=== PATIENT | female | born 1955 | race Caucasian/White ===

== ENCOUNTER → 2018-01-06 | Outpatient (CLI) | payer OTHER ==
[~2018-01-06] MED LIST: ASA81 MG PO; CALCIUM600 M1 PO; Z.0.ALTACE5 MG PO; Z.0.ESIDRIX25 MG PO; Z.0.GLIPIZIDE5 MG PO; Z.0.LOSARTAN POTASS5 PO; Z.0.LOVASTATIN10 MG PO; Z.0.MOBIC15 MG PO; [UNRECOGNIZED DRUG - OTHER] PO
--- NOTE | 2018-01-06 14:24 | Diagnostic Imaging Report ---
SMALL BOWEL SERIES NEWS LIBRARIAN(S): Laura Herr MD Comparison: None. Procedure: Small bowel follow through exam was performed using oral barium. Preliminary image was obtained before administration of contrast and serial overhead images were obtained after administration of oral barium. Fluoroscopy was performed and spot images were obtained. DISCUSSION: ENGINEERING ASSISTANT: The bowel gas pattern is non-obstructive. STOMACH: Unremarkable mucosal pattern. SMALL BOWEL: Bulb and sweep are normal. Duodenal-jejunal junction is in the normal expected position. Small bowel loops are normal in caliber and distribution. There is no evidence of fistula, mucosal changes, stricture or dilation. The transit time was within normal limits. COLON: Partially visualized proximal and transverse colon appear unremarkable. Fluoroscopy Time: 1.4 minutes; 92 mGy dose IMPRESSION: Unremarkable fluoroscopic small bowel series. Signed by: Dr. Laura Herr MD on 01/06/2018 2:21 PM
== END ==
LOC: DX 07:42
PROVIDERS: ATTEND Internal Medicine Gastroenterology
DX: R10.9 Unspecified abdominal pain (principal); K22.9 Disease of esophagus, unspecified
CPT/HCPCS: 74250

== ENCOUNTER 2019-08-21 12:51 | Inpatient (IN) | payer OTHER ==
[~2019-08-21] VITALS: Ht 172.7 cm; Wt 111.4 kg
--- OUTSIDE RECORDS SUMMARY | 2019-08-21 13:00 | XMS REPORT | Continuity of Care Document ---
Author Author [facility] Organization [facility] Address [address] [place] [address] Phone Unavailable Care Team Providers Care [employer] Supervisor Name Role Phone ELLE DEL VALLEDonta Eucedachristi Unavailable Payers Payer Name Policy Type Policy Number Effective Date Expiration Date S ource Problems This patient has no known problems. Allergies, Adverse Reactions, Alerts Allergy Name Allergy Type Status Severity Reaction(s) Onset Date Inacti ve Date Treating Clinician Comments Source morphine DA Active SV 2017-12-28 00:00:00 [facility] codeine DA Active SV 2017-12-28 00:00:00 [facility] penicillin G DA Active U 2017-12-28 00:00:00 [facility] Medications This patient has no known medications. Procedures This patient has no known procedures. Results Test Description Test Time Test Comments Results Result Comments Source COLON BIOPSY 2019-03-09 08:18:00 RUN DATE: 03/09/19 [facility] PAGE 1 RUN TIME: 817 Specimen Inquiry RUN USER: INTERFACE PATIENT: RUSSEL GUERRA LOC: NII U #: [id number] AGE/SX: 63/F ROOM: RE03/06/19[facility] DR: Ramon Del Valle MD : 59 BED: DIS: STATUS: [facility] TLOC: SPEC #: [id number] RECD: 03/06/19 STATUS: EMILY REQ #: [id number] KELLY: 03/06/19 [facility] DR: Ramon Del Valle MD ENTERED: 03/06/19 SP TYPE: COLONBX OTHR DR: Mega York DO ORDERED: GROSS COPIES TO: Ramon Del Valle MD [address] [place], [place] [id number] Mega York DO [address] [place] [address] P ROCEDURES: GROSS (03/08/19-1210) TISSUES: 1. CECUM, NOS - POLYP HS 2. ASCENDING COLON - POLYP BX CLINICAL HISTORY COLLECTION DATE: 03/06/2019 RECTAL BLEEDING POST-OP DIAGNOSIS: COLON POLYPS, DIVERTICULOSIS, INTERNAL HEMORRHOIDS FINAL DIAGNOSIS Cecum, polyp, snare polypectomy: HYPERPLASTIC POLYP NEGATIVE FOR MALIGNANCY Ascending colon, polyp, biopsy: REACTIVE LYMPHOID AGGREGATE, COLONIC MUCOSA NEGATIVE FOR MALIGNANCY DMW/sm D [id number] CONTINUED ON NEXT PAGE RUN DATE: 03/09/19 [facility] PAGE 2 RUN TIME: 817 Specimen Inquiry RUN USER: INTERFACE SPEC #: [id number] PATIENT: RUSSEL GUERRA #[id number] (Continued) MACROSCOPIC Specimen 1 is received in formalin, labeled with the patient's name, identified as " Cecum polyp hot snare ", and consists of pickering biopsy tissue measuring up to 0.3 cm in aggregate. Specimen 2 is received in formalin, labeled with the patient's name, identified as " Ascending colon polyp ", and consists of pickering biopsy tissue measuring up to 0.3 cm in aggregate. GROSS PERFORMED AT [facility] [address] [place] [address] [phone] MICROSCOPIC All of t he stains, including any controls performed, stain appropriately. MICROSCOPIC PERFORMED AT [facility] [address] [place] [address] [phone])[phone] PERFORMING SITE Diagnosis performed at: [facility], [place] [address] [place] [address] 56 Signed SIGNATURE ON FILE Doreen Rodriguez MD 03/09/19 0818 --------- --- END OF REPORT GLUBED 2019-03-06 05:58:00 Test Item GLUBED (test code = GLUBED) 174 mg/dL 74-106 H Performed by certified automatic winder operator at [facility] BASIC METABOLIC [id number] 12:35:00* Test Item Value Reference Range Interpretation Comments SODIUM (test code = NA) 141 mmol/L 136-145 N POTASSIUM (test code = K) 4.4 mmol/L 3.5-5.1 N CHLORIDE (test code = CL) 105.0 mmol/L 98-107 N CARBON DIOXIDE (test code = CO2) 27.0 mmol/L 21-32 N ANION GAP (test code = GAP) 13.4 10-20 N GLUCOSE (test code = GLU) 204 mg/dL 74-106 H BLOOD UREA NITROGEN (test code = BUN) 18 mg/dL 7-18 N GLOMERULAR FILTRATION RATE (test code = GFR) 56 mL/min >=60 Estimated GFR by using Modified MDRD formula.Chronic kidney disease is defined as either kidney damageor GFR <60 mL/min/1.73 m2 for >3 months. CREATININE (test code = CREAT) 1.00 mg/dL 0.55-1.02 N Note change in reference range due to change in reagent. BUN/CREATININE RATIO (test code = BUN/CREA) 17.5 10-20 N CALCIUM (test code = CA) 9.8 mg/dL 8.5-10.1 N BASIC METABOLIC [id number] 12:19:00* Test Item Value Reference Range Interpretation Comments SODIUM (test code = NA) 141 mmol/L 136-145 N POTASSIUM (test code = K) 4.4 mmol/L 3.5-5.1 N CHLORIDE (test code = CL) 105.0 mmol/L 98-107 N CARBON DIOXIDE (test code = CO2) mmol/L 21-32 ANION GAP (test code = GAP) 10-20 GLUCOSE (test code = GLU) mg/dL 74-106 BLOOD UREA NITROGEN (test code = BUN) mg/dL 7-18 GLOMERULAR FILTRATION RATE (test code = GFR) mL/min >=60 CREATININE (test code = CREAT) mg/dL 0.55-1.02 BUN/CREATININE RATIO (test code = BUN/CREA) 10-20 CALCIUM (test code = CA) mg/dL 8.5-10.1 - XR FACIAL BONES 3 + [id number] 12:19:00 FAX: Mega Horne DO [phone] [place]: O St: REG Name: RUSSEL RAWLS [facility] : 03/27/18 60 Age/S: 63/F [address] [facility] Unit #: [id number] Loc: [place] [address] Phys: Mega York DO Acct: [id number] Dis Date: Status: REG CLI PHONE #: [phone] Exam Date: 10/27/2018 1121 FAX #: [phone] Reason: S00.83XD EXAMS: CPT CODE: [id number] XR FACIAL BONES 3 + V 72870 HISTORY: S00.83XD TE CHNIQUE: 3 views of the facial bones. COMPARISON: None FINDINGS: Frontal, ethmoid, sphenoid, and maxillary sinuses are clear. Nasal septum is midline. Mastoid air cells are clear bilaterally. Regional osseous structures are intact. No contour abnormalities of the or bital waterman. Incidental note is made of a massive external o ccipital protuberance. IMPRESSION: No radiographically evident abnormality of the facial bones. CT scan is mor e sensitive for detection of pathology. Incidental note is made of massi ve external occipital protuberance. at 1219 Reported and signed by: Anat Riley MD CC: Mega York Technologist: Ananya Jimenez(R) Trnscrd Date/Time/By: 10/27/2018 (1055) : By: [email or web address] Orig Print D/T : S: 10/27/2018 (5675) PAGE 1 Sig christiano Report SMALL BOWEL [id number] 14:02:00 [place] [address] Patient Name: RUSSEL GUERRA MR #: [id number] : 1955 Age/Sex: 62/F Req #: [id number] [facility] Physician: Ordered by: RAMON DEL VALLE MD Report #: [id number] Location: DX Room/Bed: Procedure: [id number] DX /SMALL BOWEL SERIES Exam Date: Exam Time: REPORT STATUS: Signed SMALL BOWEL SERIES UX LEAD(S): Victorino Odonnell MD Comparison: None. Procedure: all bowel follow through exam was performed using oral barium. Preliminary im age was obtained before administration of contrast and serial overhead images were obtained after administration of oral barium. Fluoroscopy was performed and spot images were obtained. DISCUSSION: TECHNICAL TRAINING SPECIALIST: The bowel gas patter n is non-obstructive. STOMACH: Unremarkable mucosal pattern. SMALL BOWEL: Bulb and sweep are normal. Duodenal-jejunal junction is in the nor mal expected position. Small bowel loops are normal in caliber and distribu tion. There is no evidence of fistula, mucosal changes, stricture or dilatio n. The transit time was within normal limits. COLON: Partially visualiz ed proximal and transverse colon appear unremarkable. Fluoroscopy Time: 1. 4 minutes; 92 mGy dose IMPRESSION: Unremarkable fluoroscopic small bowel series. Signed by: Dr. Victorino Odonnell MD on 01/06/2018 2:21 PM Dic tated By: VICTORINO ODONNELL MD Transcribed By: SARKIS on 01/06/181420 COPY TO: RAMON DEL VALLE MD [id number] 16:43:00 RUN DATE: 01/04/18 [facility] PAGE 1 RUN TIME: 1643 Specimen Inqui ry RUN USER: INTERFACE PATIENT: RUSSEL GUERRA ACCT #: [id number] LOC: V.DSU U #: [id number] AGE/SX: 62/F ROOM: RE01/03/18REG DR: Ramon Del Valle MD : 59 BED: DIS: STATUS: [facility] TLOC: SPEC #: [id number] RECD: 01/03/18 STATUS: EMILY BEDOLLA #: [id number] KELLY: 01/03/18 DR: Ramon Del Valle MD ENTERED: 01/03/18 SP TYPE: STOMACH OTHR DR: Mega Corrigan od, DO ORDERED: GROSS COPIES TO: Ramon Del Valle MD [address] [place] [address] Mega York DO [address] [place] [address] PROCEDURES: GROSS (01/04/181135) TISSUES: 1. ANTRAL BIOPSY - H-PYLORI 2. CECUM, NOS - NATALY YP 3. ASCENDING COLON - POLYP 4. DESCENDING COLON - POLYP 5. SIGMOID - POLYP 6. RECTUM, NOS - POLYP CLINICAL HISTORY COLLECTION DATE: 01/03/2018 NAUSEA; WEIGHT LOSS; COLON CANCER SCREENING POST-OP DIAGNOSIS: ESOPHAGITIS; GASTRITIS; COLON POLYPS; INTERNAL HEMORRHOIDS FINAL DIAGNOSIS Gastric antrum, cold biopsy: MILD REACTIVE GAS TROPATHY FRAGMENTS OF GASTRIC MUCOSA WITH NO SIGNIFICANT PATHOLOGIC ALTE RATION NEGATIVE FOR INTESTINAL METAPLASIA NEGATIVE FOR HELICOBACTE R ORGANISMS NEGATIVE FOR MALIGNANCY Cecal polyp, hot snare, biopsy: SESSILE SERRATED ADENOMA NEGATIVE FOR MALIGNANCY Ascending colon polyp, hot biopsy: CONTINUED ON NEXT PAG E RUN DATE: 01/04/18 [facility] PAGE 2 RUN TIME: 1643 Specimen Inquiry RUN USER: INTERFACE SPEC #: [id number] PATIENT: RUSSEL GUERRA #[id number] (Continued) FINAL DIAG NOSIS (Continued) COLONIC MUCOSA WITH SUBTLE HYPERPLASTIC EDWARD GE OF SURFACE EPITHELIUM, MILD CHRONIC INFLAMMATION AND LYMPHOID AGGREG ATE NO ADENOMATOUS CHANGE PRESENT NEGATIVE FOR MALIGNANCY De scending colon polyp, hot biopsy: COLONIC MUCOSA WITH LYMPHOID AGGREGATE AND SUBTLE HYPERPLASTIC CHANGE OF SURFACE EPITHELIUM NEGATIVE FO R MALIGNANCY Sigmoid colon polyp, hot snare biopsy: HYPERPLASTI C POLYP NEGATIVE FOR MALIGNANCY Rectum polyp, hot biopsy: CO MPATIBLE WITH ARTIFACTUALLY DISTORTED HYPERPLASTIC POLYP NEGATIVE FOR MAL IGNANCY RRB/sm D [phone], 12837 MACROSCOPIC Specimen (1) is received in formalin, labeled with the patient's name, identified as " antrum", and consists of pink biopsy tissue measuring 0.35 cm in aggregate, s ubmitted as (1) for H E and giemsa stains. Specimen (2) is received in for tess, labeled with the patient's name, identified as "cecum polyp hot snare", and consists of pink-pickering biopsy tissue measuring 0.35 cm. The base is inked blue. THe tissue is bisected and submitted as (2). Specimen (3) is rece ived in formalin, labeled with the patient's name, identified as "ascending co wen polyp hot bx", and consists of pink-pickering biopsy tissue measuring 0.2 cm, moreno bmitted as (3). Specimen (4) is received in formalin, labeled with the pat ient's name, identified as "descending colon polyp hot bx", and consists of pi nk biopsy tissue measuring 0.2cm in aggregate, submitted as (4). Specime n (5) is received in formalin, labeled with the patient's name, identified as "sigmoid colon polyp hot snare", and consists of red-pink biopsy tissue measur ing 0.2 cm, submitted as (5). Specimen (6) is received in formalin, labele d with the patient's name, identified as "rectal polyp hot bx", and consists o f pink biopsy tissue measuring 0.2 cm, submitted as (6). CONTINUED ON NEXT PAGE RUN DATE: 01/04/18 [facility] PAGE 3 RUN TIME: 1643 Specimen Inquiry RUN USER: INTERFACE SPEC #: [id number] PATIENT: RUSSEL GUERRA #[id number] (Continu ed) MACROSCOPIC (Continued) GROSS PERFO RMED AT [facility] [address] [facility], [place] [address] (p)[phone] MICROSCOPIC MICROSCOPIC PERFORME D AT [facility] All of the stains, including any controls performe d, stain appropriately. [facility] [address] [facility], [place] [address] (p)[phone] PERFORMING SITE Diagnosis performed at: [facility], [address], [place] [address] Signed SIGNATURE ON FILE Edward Romero 01/04/18 1643 END OF REPORT
[2019-08-21] MEDS ORDERED: SODIUM CHLORIDE 0.9% 1000ML 1,000 ML IV STA (13:09)
--- NOTE | 2019-08-21 13:33 | NUR ---
PT GIVEN DRIVERS LICENSE, INSUR CARD AND RETURN MED LIST.
[2019-08-21] MEDS ORDERED: CEFTRIAXONE SOD 2 GM VIAL ONE (13:46)
[2019-08-21] MEDS ORDERED: AZITHROMYCIN 500MG/NS 250 ML 250 ML ONE (13:46)
[2019-08-21] MEDS ORDERED: ONDANSETRON HCL INJ 2MG/ML 2ML 2 MG/ML VIAL IV STA (13:47)
[2019-08-21] MEDS: CEFTRIAXONE SOD 1 GM/NS 50 ML 50 ML IV SCH (13:58)
[2019-08-21] MEDS: AZITHROMYCIN 500MG/NS 250 ML 250 ML IV SCH (13:58)
[2019-08-21 14:07] LABS: HEMATOCRIT 36.7 % (34.2-44.1); HEMOGLOBIN 12.1 g/dL (12.0-16.0); LYMPHOCYTES # (AUTO) 0.8 (1.0-3.2); LYMPHOCYTES % 18.4 % (18.0-39.1); MEAN CORPUSCULAR HEMOGLOBIN 27.6 pg (28-32); MEAN CORPUSCULAR VOLUME 83.8 fL (81-99); MONOCYTES # (AUTO) 0.4 (0.2-0.8); NEUTROPHILS # (AUTO) 2.9 (2.1-6.9); NEUTROPHILS % 71.1 % (38.7-80.0); PLATELET COUNT 188 x10e3/uL (140-360); RED BLOOD COUNT 4.38 x10e6/uL (3.6-5.1); RED CELL DISTRIBUTION WIDTH 13.1 % (11.7-14.4)
--- NOTE | 2019-08-21 14:09 | NUR ---
ICE WATER, WET RAG FOR HEAD, GIVEN PER REQUEST
[2019-08-21 14:22] LABS: INR 0.8; PROTHROMBIN TIME 11.5 seconds (11.9-14.5)
[2019-08-21 14:30] LABS: ALBUMIN 3.1 g/dL (3.5-5.0); ALBUMIN/GLOBULIN RATIO 0.8 (0.8-2.0); ANION GAP 17.9 mmol/L (8-16); MAGNESIUM 1.9 MG/DL (1.3-2.1); POTASSIUM 3.9 mmol/L (3.5-5.1)
[2019-08-21] MEDS ORDERED: HYDROCHLOROTHIA25 MG PO (14:33)
[2019-08-21] MEDS ORDERED: BENICAR20 MG PO (14:33)
[2019-08-21] MEDS ORDERED: ONGLYZA5 MG PO (14:33)
[2019-08-21] MEDS ORDERED: PROTONIX20 MG PO (14:33)
[2019-08-21] MEDS ORDERED: LOVASTATIN20 MG PO (14:33)
[2019-08-21] MEDS ORDERED: VICTOZA 2-0.6 MG/0.1 IM (14:33)
[2019-08-21] MEDS ORDERED: ADVAIR 100-501 EACH (14:33)
[2019-08-21] MEDS ORDERED: RAMIPRIL5 MG PO (14:33)
--- NOTE | 2019-08-21 14:38 | NUR ---
CALLED [facility] FOR ETA OF XRAY TO BE DONE. STATES ON THEIR WAY.
[2019-08-21 14:39] LABS: CREATINE KINASE MB 1.8 ng/mL (0-5.0)
[2019-08-21] MEDS ORDERED: SODIUM CHLORIDE 0.9% 1000ML 1,000 ML IV SCH (15:00)
[2019-08-21] MEDS ORDERED: DEXTROSE 50% SYRINGE 50 ML IV PRN (15:00)
[2019-08-21] MEDS ORDERED: MIDAZOLAM HCL 2 MG/2 ML VIAL ONE (15:11)
[2019-08-21] MEDS ORDERED: ETOMIDATE 2 MG/ML 10 ML INJ IV ONE (15:11)
[2019-08-21] MEDS ORDERED: SUCCINYLCHOLINE CHLORIDE 20 MG/ML 10ML VIAL ONE (15:11)
--- NOTE | 2019-08-21 15:13 | Diagnostic Imaging Report ---
Chest, 1 view, 08/21/2019. History: Covid exposure. Comparison: None available. Findings: The cardiomediastinal silhouette and pulmonary vasculature are within normal limits for a portable exam. Ill-defined patchy opacities are present at the lung bases laterally. There is no evidence of pleural effusion. There are no acute osseous or soft tissue abnormalities. Impression: Patchy bibasilar opacities may present atelectasis or atypical/viral pneumonia. Signed by: Duc Bañuelos on 08/21/2019 3:09 PM
--- NOTE | 2019-08-21 15:30 | Emergency Department Note ---
History of Present Illnes History of Present Illness Chief Complaint: COVID PUI History of Present Illness This is a 64 year old female CLIENTS IS IN ICU FOR COVID INFECTION, CLIENT REPORTS FEELING WEAK FOR THE LAST WEEK, WELL COUGH. ALSO REPORTS FEELING SHORT OF BREATH. Historian: Patient Arrival Mode: Car Management Scientist Required: No Onset (how long ago): day(s) (6) Location: LUNGS Quality: COUGH, SOB Radiation: Reports non-radiation Severity: moderate Onset quality: gradual Timing of current episode: intermittent Progression: worsening Chronicity: new Context: Reports recent illness Relieving factors: none Exacerbating factors: none Associated symptoms: Reports cough, Reports fever/chills, Reports shortness of breath Treatments prior to arrival: none Past Medical/Family History Physician Review I have reviewed the patient's past medical and family history. Any updates have been documented here. Past Medical History Recent Fever: Yes Clinical Suspicion of Infectio: Yes New/Unexplained Change in Ment: No Past Medical History: Hypertension, Diabetes, Hyperlipedemia Social History Smoking Cessation: Never Smoker Counseling Performed: No Alcohol Use: None Any Illegal Drug Use: No TB Exposure/Symptoms: No Physically hurt or threatened: No Family History Family history of heart diseas: No Other Last Tetanus: UNKNOWN Any Pre-Existing Lines (PICC,: No Review of Systems Review of Systems Constitutional: Reports fever, Reports malaise, Reports weakness EENTM: Reports no symptoms Cardiovascular: Reports no symptoms Respiratory: Reports chest congestion, Reports cough, Reports dyspnea, Reports dyspnea on exertion Gastrointestinal: Reports no symptoms Genitourinary: Reports no symptoms Musculoskeletal: Reports no symptoms Integumentary: Reports no symptoms Neurological: Reports no symptoms Psychological: Reports no symptoms Endocrine: Reports no symptoms Hematological/Lymphatic: Reports no symptoms Review of other systems All other systems reviewed and negative. Physical Exam Related Data Allergies: Coded Allergies: Codeine (Verified Allergy, 06/12/11) Penicillins (Verified Allergy, 06/12/11) morphine (Verified Allergy, 06/12/11) Triage Vital Signs Vital Signs Date Time Temp Pulse Resp B/P (MAP) Pulse Ox O2 Delivery O2 Flow Rate FiO2 08/21/19 12:52 99.6 86 18 145/81 94 Physical Exam CONSTITUTIONAL Constitutional: Reports well-developed, Reports well-nourished HENT HENT: Reports normocephalic, Reports atraumatic, Reports oropharynx clear/moist, Reports nose normal HENT L/R: Reports left ext ear normal, Reports right ext ear normal EYES Eyes: Reports PERRL, Reports conjunctivae normal NECK Neck: Reports ROM normal PULMONARY Pulmonary: Reports other (DECR BS'S THROUGHOUT, SCATTERED RHONCHI) CARDIOVASCULAR Cardiovascular: Reports regular rhythm, Reports heart sounds normal, Reports capillary refill normal, Reports normal rate GASTROINTESTINAL Abdominal: Reports soft, Reports nontender, Reports bowel sounds normal GENITOURINARY Genitourinary: Reports exam deferred SKIN Skin: Reports warm, Reports dry MUSCULOSKELETAL Musculoskeletal: Reports ROM normal NEUROLOGICAL Neurological: Reports alert, Reports oriented x 3, Reports no gross motor or sensory deficits PSYCHOLOGICAL Psychological: Reports mood/affect normal, Reports judgement normal Results Laboratory Result Diagram: 08/21/19 1300 08/21/19 1300 Laboratory Laboratory Tests Test 08/21/19 13:00 White Blood Count 4.12 x10e3/uL (4.8-10.8) Red Blood Count 4.38 x10e6/uL (3.6-5.1) Hemoglobin 12.1 g/dL (12.0-16.0) Hematocrit 36.7 % (34.2-44.1) Mean Corpuscular Volume 83.8 fL (81-99) Mean Corpuscular Hemoglobin 27.6 pg (28-32) Mean Corpuscular Hemoglobin Concent 33.0 g/dL (31-35) Red Cell Distribution Width 13.1 % (11.7-14.4) Platelet Count 188 x10e3/uL (140-360) Neutrophils (%) (Auto) 71.1 % (38.7-80.0) Lymphocytes (%) (Auto) 18.4 % (18.0-39.1) Monocytes (%) (Auto) 10.0 % (4.4-11.3) Eosinophils (%) (Auto) 0.0 % (0.0-6.0) Basophils (%) (Auto) 0.0 % (0.0-1.0) Neutrophils # (Auto) 2.9 (2.1-6.9) Lymphocytes # (Auto) 0.8 (1.0-3.2) Monocytes # (Auto) 0.4 (0.2-0.8) Eosinophils # (Auto) 0.0 (0.0-0.4) Basophils # (Auto) 0.0 (0.0-0.1) Absolute Immature Granulocyte (auto 0.02 x10e3/uL (0-0.1) Prothrombin Time 11.5 seconds (11.9-14.5) Prothromb Time International Ratio 0.80 Activated Partial Thromboplast Time 34.0 seconds (23.8-35.5) Sodium Level 133 mmol/L (136-145) Potassium Level 3.9 mmol/L (3.5-5.1) Chloride Level 97 mmol/L (98-107) Carbon Dioxide Level 22 mmol/L (22-29) Anion Gap 17.9 mmol/L (8-16) Blood Urea Nitrogen 19 mg/dL (7-26) Creatinine 1.00 mg/dL (0.57-1.11) Estimat Glomerular Filtration Rate 56 ML/MIN (60-) BUN/Creatinine Ratio 19 (6-25) Glucose Level 313 mg/dL (74-118) Calcium Level 9.0 mg/dL (8.4-10.2) Magnesium Level 1.9 MG/DL (1.3-2.1) Total Bilirubin 0.3 mg/dL (0.2-1.2) Aspartate Amino Transf (AST/SGOT) 60 IU/L (5-34) Alanine Aminotransferase (ALT/SGPT) 58 IU/L (0-55) Alkaline Phosphatase 79 IU/L (40-150) Creatine Kinase 138 IU/L (29-168) Creatine Kinase MB 1.80 ng/mL (0-5.0) Troponin I 0.036 ng/mL (0-0.300) B-Type Natriuretic Peptide 20.7 pg/mL (0-100) Total Protein 7.1 g/dL (6.5-8.1) Albumin 3.1 g/dL (3.5-5.0) Globulin 4.0 g/dL (2.3-3.5) Albumin/Globulin Ratio 0.8 (0.8-2.0) Lab results reviewed: Yes Imaging Imaging results reviewed: Yes Impressions Chest, 1 view, 08/21/2019. History: Covid exposure. Comparison: None available. Findings: The cardiomediastinal silhouette and pulmonary vasculature are within normal limits for a portable exam. Ill-defined patchy opacities are present at the lung bases laterally. There is no evidence of pleural effusion. There are no acute osseous or soft tissue abnormalities. Impression: Patchy bibasilar opacities may present atelectasis or atypical/viral pneumonia. Signed by: Duc Bañuelos on 08/21/2019 3:09 PM Assessment & Plan Medical Decision Making MDM COUGH, SUB F/C, SOB, ACHY ALL OVER, HERE IN ICU FOR COVID19 - CHECK CBC, CHEM, PANCX'S, UA, CXR, COVID SWAB, CK/TROP, ECG - R/O COMM ACQUIRED PNEUMONIA, COVID19, BRONCHITIS Reassessment Reassessment ADMIT TO COVID UNIT - I SPOKE WITH ANGEL WAGONER L HAMER Assessment & Plan Final Impression: (1) Pneumonia (2) COVID-19 Depart Disposition: ADMITTED Last Vital Signs Date Time Temp Pulse Resp B/P (MAP) Pulse Ox O2 Delivery O2 Flow Rate FiO2 08/21/19 14:09 86 16 131/67 98 08/21/19 13:31 99.1 Home Meds Reported Medications Fluticasone/Salmeterol (ADVAIR 100-50 DISKUS) 1 Each Disk.w.dev, 1 SPRAY NA DAILY 08/21/19 Pantoprazole Sodium (PROTONIX) 20 Mg Tablet.dr, 80 MG PO HS, #30 TAB 08/21/19 Hydrochlorothiazide (HYDROCHLOROTHIAZIDE) 25 Mg Tablet, 25 MG PO DAILY, #30 TAB 08/21/19 Lovastatin (LOVASTATIN) 20 Mg Tablet, 1 TAB PO DAILY 08/21/19 Ramipril (RAMIPRIL) 5 Mg Capsule, 5 MG PO DAILY, #30 TAB 08/21/19 Olmesartan Medoxomil (BENICAR) 20 Mg Tablet, 20 MG PO DAILY, #30 TAB 08/21/19 Liraglutide (VICTOZA 2-YUMIKO) 0.6 Mg/0.1 Ml Pen.injctr, 1.2 MG IM DAILY 08/21/19 Saxagliptin Hcl (ONGLYZA) 5 Mg Tablet, 1 TAB PO DAILY 08/21/19 Aspirin (Asa) 81 Mg Tab, 81 MG PO DAILY 06/12/11 Glipizide (Glipizide) 5 Mg Tablet, 2 MG PO BID 06/12/11 Metformin Hcl (Glucophage Xr) 750 Mg Tab.er.24h, 1000 MG PO BID 06/12/11 Discontinued Reported Medications Calcium Carbonate (CALCIUM) 600 Mg Tablet, 600 MG PO DAILY 06/12/11 Meloxicam (Mobic) 15 Mg Tablet, 15 MG PO DAILY 06/12/11 Hydrochlorothiazide (Esidrix) 25 Mg Tab, 25 MG PO DAILY 06/12/11 Lovastatin (Lovastatin) 10 Mg Tablet, 10 MG PO DAILY 06/12/11 Ramipril (Altace) 5 Mg Capsule, 5 MG PO DAILY 06/12/11 Losartan Potassium (Losartan Potassium) 50 Mg Tablet, 50 MG PO DAILY 06/12/11 Medications in the ED Sodium Chloride 1,000 ml @ 0 mls/hr Q0M STAT IV Last administered on 08/21/19at 13:58; Admin Dose 1,000 MLS/HR; Start 08/21/19 at 13:09; Stop 08/21/19 at 13:13; Status DC Ceftriaxone Sodium 50 ml @ 100 mls/hr Q24H IV Last administered on 08/21/19at 13:58; Admin Dose 100 MLS/HR; Start 08/21/19 at 13:45; Stop 08/28/19 at 13:44 Azithromycin 250 ml @ 200 mls/hr Q24H IV Last administered on 08/21/19at 13:58; Admin Dose 200 MLS/HR; Start 08/21/19 at 13:45; Stop 08/28/19 at 13:44 Ceftriaxone Sodium 2 gm STK-MED ONCE .ROUTE ; Start 08/21/19 at 13:46; Stop 08/21/19 at 13:41; Status DC Azithromycin 250 ml @ ud STK-MED ONCE .ROUTE ; Start 08/21/19 at 13:46; Stop 08/21/19 at 13:41; Status DC Ondansetron HCl 4 mg NOW STAT IV Last administered on 08/21/19at 13:58; Admin Dose 4 MG; Start 08/21/19 at 13:47; Stop 08/21/19 at 13:51; Status DC NATALEE FELDER MD Aug 21, 2019 15:30
--- OUTSIDE RECORDS SUMMARY | 2019-08-21 15:38 | XMS REPORT | Continuity of Care Document ---
Author Author [facility] Organization [facility] Address [address] [place] [address] Phone Unavailable Care Team Providers Care Piecer Up Name Role Phone Tavo FELDER Attphys Unavailable RAMON DEL VALLE Attphys Unavailable Ariella ONTIVEROS Admphys Unavailable Payers Payer Name Policy Type Policy Number Effective Date Expiration Date S ource Problems This patient has no known problems. Allergies, Adverse Reactions, Alerts Allergy Name Allergy Type Status Severity Reaction(s) Onset Date Inacti ve Date Treating Clinician Comments Source morphine DA Active SV 2017-12-28 00:00:00 [facility] codeine DA Active SV 2017-12-28 00:00:00 [facility] penicillin G DA Active U 2017-12-28 00:00:00 [facility] Medications This patient has no known medications. Procedures This patient has no known procedures. Results Test Description Test Time Test Comments Results Result Comments Source CHEST SINGLE (PORTABLE) 2019-08-21 15:06:00 [facility] [address] [address] Patient Name: RUSSEL GUERRA MR #: [id number] : 1955 Age/Sex: 64/F Req #: [id number] Adm Physician: Ordered by: NATALEE FELDER MD Report #: [id number] Location: ER Room/Bed: Procedure: [id number] DX/CHEST SINGLE (PORTABLE) Exam Date: 08/21/19 Exam Time: 1430 REPORT STATUS: Signed Chest, 1 view, 08/21/2019. History: Covid exposure. Comparison: None available. Findings: The cardiomediastinal silhouette and pulmonary vasculature are within normal limits for a portable exam. Ill-defined patchy opacities are present at the lung bases laterally. There is no evidence of pleural effusion. There are no acute osseous or soft tissue abnormalities. Impression: Patchy bibasilar opacities may present atelectasis or atypical/viral pneumonia. Signed by: Duc Bañuelos on 08/21/2019 3:09 PM Dictated By: DUC BAÑUELOS MD 1509 Transcribed By: SARKIS on 08/21/19 1503 COPY TO: NATALEE FELDER MD COLON BIOPSY 2019-03-09 08:18:00 RUN DATE: 03/09/19 [facility] PAGE 1 RUN TIME: 817 Specimen Inquiry RUN USER: INTERFACE PATIENT: OBDULIOJANNETTERUSSEL HEAVENLY LOC: NII Arcos #: [id number] AGE/SX: 63/F ROOM: RE03/06/19[facility] DR: Ramon Del Valle MD : 59 BED: DIS: STATUS: [facility] TLOC: SPEC #: [id number] RECD: 03/06/19 STATUS: EMILY GRAEME #: [id number] KELLY: 03/06/19 [facility] DR: Ramon Del Valle MD ENTERED: 03/06/19 SP TYPE: COLONBX OTHR DR: Mega York DO ORDERED: GROSS COPIES TO: Ramon Del Valle MD [address] [place], [place] [id number] Mega York DO [address] [place], [place] [id number] P ROCEDURES: GROSS (03/08/19-1210) TISSUES: 1. CECUM, NOS - POLYP HS 2. ASCENDING COLON - POLYP BX CLINICAL HISTORY COLLECTION DATE: 03/06/2019 RECTAL BLEEDING POST-OP DIAGNOSIS: COLON POLYPS, DIVERTICULOSIS, INTERNAL HEMORRHOIDS FINAL DIAGNOSIS Cecum, polyp, snare polypectomy: HYPERPLASTIC POLYP NEGATIVE FOR MALIGNANCY Ascending colon, polyp, biopsy: REACTIVE LYMPHOID AGGREGATE, COLONIC MUCOSA NEGATIVE FOR MALIGNANCY DMW/ D [id number] CONTINUED ON NEXT PAGE RUN DATE: 03/09/19 [facility] PAGE 2 RUN TIME: 817 Specimen Inquiry RUN USER: INTERFACE SPEC #: [id number] PATIENT: RUSSEL GUERRA #[id number] (Continued) MACROSCOPIC Specimen 1 is received in [...] 0.3 cm in aggregate. GROSS PERFORMED AT [facility] [address] [place] [address] (p)[phone] MICROSCOPIC All of t he stains, including any controls performed, stain appropriately. MICROSCOPIC PERFORMED AT [facility] [address] [place] [address] (p)[phone] PERFORMING SITE Diagnosis performed at: [facility], [address] [place] [address] Signed SIGNATURE ON FILE Doreen Rodriguez MD 03/09/19 0818 --------- --- END OF REPORT GLUBED 2019-03-06 05:58:00 Test Item GLUBED (test code = GLUBED) 174 mg/dL 74-106 H Performed by certified casting machine control board operator at [facility] BASIC METABOLIC [id number] 12:35:00* Test Item Value Reference Range Interpretation [...] CA) 9.8 mg/dL 8.5-10.1 N BASIC METABOLIC [id number] 12:19:00* Test Item Value Reference Range Interpretation [...] 8.5-10.1 - XR FACIAL BONES 3 + [id number] 12:19:00 FAX: Mega Horne DO [phone] [place]: O St: REG Name: RUSSEL RAWLS [facility] : 03/27/18 60 Age/S: 63/F [address] [facility] Unit #: [id number] Loc: [place] [address] Phys: Mega York DO Acct: [id number] Dis Date: Status: REG CLI PHONE #: [phone] Exam Date: 10/27/2018 1121 FAX #: [phone] Reason: S00.83XD EXAMS: CPT CODE: [id number] XR FACIAL BONES 3 + V 71010 HISTORY: S00.83XD TE CHNIQUE: 3 views of [...] York Technologist: Ananya Jimenez(R) Trnscrd Date/Time/By: 10/27/2018 (1918) : By: [email or web address] Orig Print D/T : S: 10/27/2018 (2149) PAGE 1 Sig christiano Report SMALL BOWEL [id number] 14:02:[address] [address] Patient Name: RUSSEL GUERRA MR #: [id number] : 1955 Age/Sex: 62/F Req #: [id number] Adm Physician: Ordered by: RAMON DEL VALLE MD Report #: [id number] Location: DX Room/Bed: Procedure: [id number] DX /SMALL BOWEL SERIES Exam Date: Exam Time: REPORT STATUS: Signed SMALL BOWEL SERIES TECHNICAL COORDINATOR(S): Victorino Odonnell MD Comparison: None. Procedure: Sm all bowel follow through exam was performed using oral barium. Preliminary im age was obtained before administration of contrast and serial overhead images were obtained after administration of oral barium. Fluoroscopy was performed and spot images were obtained. DISCUSSION: RN RECOVERY: The bowel gas patter n is non-obstructive. [...] PM Dic tated By: VICTORINO ODONNELL MD 142 1 Transcribed By: SARKIS on 01/06/18 1421 COPY TO: RAMON DEL VALLE MD [id number] 16:43:00 RUN DATE: 01/04/18 [facility] PAGE 1 RUN TIME: 1643 Specimen Inqui ry RUN USER: INTERFACE PATIENT: RUSSEL GUERRA ACCT #: [id number] LOC: V.DSU U #: [id number] AGE/SX: 62/F ROOM: RE01/03/18REG DR: Ramon Del Valle MD : [birth year] BED: DIS: STATUS: [facility] TLOC: SPEC #: [id number] RECD: 01/03/18 STATUS: EMILY BEDOLLA #: [id number] KELLY: 01/03/18- SUBM DR: Ramon Del Valle MD ENTERED: 01/03/18 SP TYPE: STOMACH OTHR DR: Mega Corrigan od, DO ORDERED: GROSS COPIES TO: Ramon Del Valle MD [address] [place] [address] Mega York DO [address] [place] [address] PROCEDURES: GROSS (01/04/181135) TISSUES: 1. ANTRAL BIOPSY [...] ON NEXT PAG E RUN DATE: 01/04/18 [facility] PAGE 2 RUN TIME: 1643 Specimen Inquiry RUN USER: INTERFACE SPEC #: :[id number] PATIENT: RUSSEL GUERRA #[id number] (Continued) FINAL DIAG NOSIS (Continued) COLONIC MUCOSA [...] POLYP NEGATIVE FOR MAL IGNANCY RRB/sm D ([phone], 40115 MACROSCOPIC Specimen (1) is received in formalin, [...] CONTINUED ON NEXT PAGE RUN DATE: 01/04/18 [facility] PAGE 3 RUN TIME: 1643 Specimen Inquiry RUN USER: INTERFACE SPEC #: [id number] PATIENT: RUSSEL GUERRA #[id number] (Continu ed) MACROSCOPIC (Continued) GROSS PERFO RMED AT [facility] [address] [place], [place] [address] (P)[phone] MICROSCOPIC MICROSCOPIC PERFORME D AT [facility] All of the stains, including any controls performe d, stain appropriately. [facility] [address] [facility] [place] [address] [phone])[phone] PERFORMING SITE Diagnosis performed at: [facility], [place] [address] [place] [address] Signed SIGNATURE ON FILE Edward Romero 01/04/18 1643 END OF REPORT
[2019-08-21] MEDS ORDERED: HYDROCODONE/APAP 7.5MG-325MG 1 EA TAB PO PRN (16:00)
[2019-08-21] MEDS ORDERED: TRAMADOL HCL 50 MG TAB PO PRN (16:00)
--- NOTE | 2019-08-21 16:28 | NUR ---
consult [id number]
[2019-08-21] MEDS ORDERED: GLIPIZIDE 5 MG TAB PO SCH (16:30)
[2019-08-21] MEDS ORDERED: ACETAMINOPHEN 325 MG TAB PO ONE (17:00)
[2019-08-21 18:29] LABS: CLARITY,URINE SL CLOUDY (CLEAR); COLOR,URINE YELLOW (YELLOW)
[2019-08-21 18:30] LABS: BILIRUBIN,URINE NEGATIVE (NEGATIVE); KETONES,URINE NEGATIVE (NEGATIVE); LEUKOCYTE ESTERASE ,URINE NEGATIVE (NEGATIVE); NITRITE,URINE NEGATIVE (NEGATIVE); PROTEIN,URINE DIPSTICK TRACE (NEGATIVE); URINE UROBILINOGEN 1 mg/dL (0.2 - 1)
[2019-08-21 18:32] LABS: AMORPHOUS SEDIMENT,URINE FEW (FEW); BACTERIA,URINE FEW /HPF
--- NOTE | 2019-08-21 18:44 | NUR ---
Received patient from ED. Orientated patient to room, call light at bedside. Denies any pain or concerns at this time.
--- NOTE | 2019-08-21 19:00 | NUR ---
Resumed care of patient. Patient awake and resting in bed, no s/s of distress at this time. Bed locked and in lowest position, side rails up x3, call light placed within reach. Patient instructed to call for assistance if needed, verbalized understanding. All safety measures in place. Will continue to monitor.
[2019-08-21 20:03] VITALS: BP 129/70
[2019-08-21] MEDS: INSULIN LISPRO 100 UNIT/1 ML 3ML VIAL SQ SCH (20:35)
[2019-08-21] MEDS: BENZONATATE 100 MG CAP PO PRN (20:35)
[2019-08-21] MEDS: PANTOPRAZOLE SOD 40 MG TABEC PO SCH (20:35)
--- NOTE | 2019-08-21 20:35 | NUR ---
Per ashvin Victor to DC telemetry and keep patient on continuous pulse ox.
[2019-08-21 20:44] LABS: CREATINE KINASE MB 1.6 ng/mL (0-5.0)
[2019-08-21 21:02] VITALS: BP 129/70
[2019-08-21 21:18] VITALS: BP 129/70
--- NOTE | 2019-08-21 21:45 | NUR ---
Per Dr. Toribio, will proceed with plasma transfusion. Orders received for type and screen.
--- NOTE | 2019-08-21 21:55 | Consultation ---
DATE OF CONSULTATION: Pulmonary Critical Care Consultation CHIEF COMPLAINT: Fever and cough with possible COVID-19 infection. HISTORY OF PRESENT ILLNESS: The patient is a 64-year-old woman. She reports fever and cough for the past 6-7 days. She also complains of headache and upper thoracic pain with coughing. She notes some shortness of breath. She denies nausea, vomiting, or diarrhea. PAST MEDICAL HISTORY: 1. Diabetes. 2. Hypertension. 3. No prior heart disease. 4. No prior COPD or asthma. PAST SURGICAL HISTORY: Status post hysterectomy. ALLERGIES: THE PATIENT IS ALLERGIC TO PENICILLIN AND MORPHINE. SOCIAL HISTORY: The patient is not a smoker or a drinker. Her is currently hospitalized with COVID-19 infection. FAMILY HISTORY: Noncontributory. REVIEW OF SYSTEMS: Fever, headache. No neck pain. No chest pain. The patient does have shortness of breath and cough. There is no abdominal pain. There is no nausea or vomiting. The patient has no leg edema. PHYSICAL EXAMINATION: VITAL SIGNS: The patient is afebrile. The blood pressure is 131/67, saturation is 98%, and the pulse is 86. HEENT: No facial swelling or erythema. CARDIAC: Reveals regular rate and rhythm with normal S1, S2. LUNGS: Auscultation of lungs reveals clear breath sounds bilaterally. There is no wheezing. ABDOMEN: Soft and nontender. There is no rebound or guarding. EXTREMITIES: No leg edema or calf tenderness. There is no cyanosis or clubbing. SKIN: No rashes. NEUROLOGICAL: No focal abnormalities. RADIOGRAPHIC DATA: Chest x-ray shows bilateral infiltrates. LABORATORY DATA: CBC is within normal limits. BUN to creatinine ratio is 19 to 1, and the sodium is 133. Albumin is 3.1. IMPRESSION: 1. Viral pneumonia. 2. COVID-19 infection. 3. Diabetes. 4. Hypertension. PLAN: 1. Oxygen. 2. IV fluids. 3. Antibiotics. 4. Monitor and control blood sugars. 5. Monitor blood pressure. MD MERLINE Arango/GARRY /[id number]
--- NOTE | 2019-08-21 22:30 | NUR ---
Type and screen drawn as ordered and sent to lab.
[2019-08-21 23:55] VITALS: BP 124/74
[2019-08-22] VITALS (7 sets, daily range): BP systolic 115–140; BP diastolic 66–76
[2019-08-22] MEDS ORDERED: GLIMEPIRIDE2 MG PO (00:20)
--- NOTE | 2019-08-22 00:20 | Consultation ---
DATE OF CONSULTATION: REASON FOR CONSULTATION: The patient has shortness of breath, fever, concerned about COVID-19. HISTORY OF PRESENT ILLNESS: This is a very pleasant 64-year-old white female, history of hypertension, hypercholesteremia, obesity. The patient has been sick for a couple of days with fever, sore throat, cough. Her was diagnosed with COVID-19 and has actually been admitted today to the hospital, but her has been sick for 7 days. The patient who is currently lying in bed in the emergency room, waiting on her test. She complaining of cough, but there is no shortness of breath, just cough and fever. PAST MEDICAL HISTORY: Significant for hypertension, diabetes. PAST SURGICAL HISTORY: She denies. ALLERGIES: NKA. SOCIAL HISTORY: There is no smoking, drug abuse, or alcohol abuse. FAMILY HISTORY: Otherwise unremarkable. REVIEW OF SYSTEMS: Besides what mentioned above, she denies any. MEDICATIONS: She is currently on Zithromax, Rocephin, Tessalon Perles, Ultram, Protonix, Benicar, aspirin, albuterol. LABORATORY DATA: White count 4.12, hemoglobin 4.38, hemoglobin of 12. Her sodium 133, potassium 3.9, creatinine 1.0, glucose 313. BNP is 20. Her COVID-19 is still pending. Her PT was 11.5 with an INR 0.8. She had a chest x-ray, which showed patchy bibasilar opacities. PHYSICAL EXAMINATION: GENERAL: Currently alert, oriented, does not seem to be in acute distress. VITAL SIGNS: Stable. Currently afebrile. HEENT: She is not icteric. NECK: Supple. CHEST: A few crackles bilateral. COR: S1, S2. No S3, S4, or murmurs. ABDOMEN: Soft. Bowel sounds present. No tenderness. EXTREMITIES: No edema. SKIN: No rash. IMPRESSION: 1. Atypical pneumonia. 2. Diabetes mellitus. 3. History of hypertension. 4. History of obesity. RECOMMENDATIONS: Agree with Rocephin and azithromycin. We are checking for COVID-19, results still pending. If that came back positive, I would recommend to add Lovenox, zinc and vitamin C. In the meantime, continue above treatment. She does not seem to be hypoxemic. We will also discuss the possibility of plasma and she said she is willing to take it if it is positive. We will follow with you. We will keep her on droplet isolation until we get a definitive diagnosis. MD BAYRON Hitchcock/GARRY /[id number]
[2019-08-22 01:39] LABS: CREATINE KINASE MB 1.7 ng/mL (0-5.0)
--- NOTE | 2019-08-22 01:40 | NUR ---
Confirmed with patient that Dr. Toribio already explained plan for convalescent plasma transfusion. Obtained informed consent.
--- NOTE | 2019-08-22 04:00 | NUR ---
Patient c/o SOB while lying in bed. O2 stats 90% on 2L O2 NC. Increased to 3L, O2 94%. Assisted patient to restroom. O2 level down to 87% on RA. Provided O2 extension so that patient can wear NC to restroom. Patient currently resting in bed, O2 95% on 3L NC. Will continue to monitor.
[2019-08-22] MEDS ORDERED: SODIUM CHLORIDE 0.9% 250ML 250 ML ONE ×3 (04:34→10:53)
[2019-08-22 05:00] LABS: BASOPHILS % 0.6 % (0.0-1.0); HEMATOCRIT 34.6 % (34.2-44.1); HEMOGLOBIN 11.2 g/dL (12.0-16.0); LYMPHOCYTES # (AUTO) 1.2 (1.0-3.2); MEAN CORPUSCULAR HEMOGLOBIN 28.1 pg (28-32); MEAN CORPUSCULAR HGB CONC 32.4 g/dL (31-35); MEAN CORPUSCULAR VOLUME 86.7 fL (81-99); MONOCYTES # (AUTO) 0.3 (0.2-0.8); MONOCYTES % 7.1 % (4.4-11.3); NEUTROPHILS # (AUTO) 2.1 (2.1-6.9); NEUTROPHILS % 58.7 % (38.7-80.0); PLATELET COUNT 166 x10e3/uL (140-360); RED BLOOD COUNT 3.99 x10e6/uL (3.6-5.1); RED CELL DISTRIBUTION WIDTH 13.2 % (11.7-14.4)
--- NOTE | 2019-08-22 05:10 | NUR ---
Transfusion of first unit of plasma started at 0446. Patient awake and resting in bed, vital signs stable from baseline, no s/s of distress at this time, tolerating well. Will continue to monitor.
[2019-08-22 05:21] LABS: CREATINE KINASE MB 0.8 ng/mL (0-5.0)
[2019-08-22] MEDS: BENZONATATE 100 MG CAP PO PRN (05:21)
--- NOTE | 2019-08-22 05:41 | NUR ---
First plasma transfusion completed. Vital signs stable from baseline, no s/s of distress at this time. Will continue to monitor.
[2019-08-22 06:01] LABS: ALANINE AMINOTRANSFERASE 58 IU/L (0-55); ALBUMIN 2.7 g/dL (3.5-5.0); ALBUMIN/GLOBULIN RATIO 0.8 (0.8-2.0); ALKALINE PHOSPHATASE 74 IU/L (40-150); ANION GAP 16.9 mmol/L (8-16); BLOOD UREA NITROGEN 15 mg/dL (7-26); BUN/CREATININE RATIO 19 (6-25); CALCIUM 8.3 mg/dL (8.4-10.2); CARBON DIOXIDE 20 mmol/L (22-29); CHLORIDE 104 mmol/L (98-107); EST GLOMERULAR FILTRATION RATE > 60 ML/MIN (60-); GLUCOSE 216 mg/dL (74-118); POTASSIUM 3.9 mmol/L (3.5-5.1); SODIUM 137 mmol/L (136-145)
--- NOTE | 2019-08-22 06:21 | NUR ---
Second plasma transfusion started at 0604. Vital signs stable from baseline, no s/s of distress noted. Will continue to monitor.
--- NOTE | 2019-08-22 06:49 | NUR ---
Second plasma transfusion completed at 0644. Vital signs and patient condition stable from baseline. Will continue to monitor.
[2019-08-22] MEDS ORDERED: GLIMEPIRIDE 2 MG TAB PO SCH (07:30)
[2019-08-22] MEDS ORDERED: HYDROCODONE/APAP 5MG-325MG TAB PO PRN (08:45)
[2019-08-22] MEDS: ACETAMINOPHEN 325 MG TAB PO PRN ×3 (09:18→22:38)
[2019-08-22] MEDS: INSULIN LISPRO 100 UNIT/1 ML 3ML VIAL SQ SCH ×4 (09:23→22:37)
[2019-08-22] MEDS: ASPIRIN 81 MG ENTERIC COATED PO SCH (09:50)
[2019-08-22] MEDS: OLMESARTAN 20 MG TAB PO SCH (09:50)
[2019-08-22] MEDS: GUAIFENESIN 600MG/DEXTROMETHORPHAN 30MG TABSR PO SCH ×2 (09:50→18:14)
[2019-08-22] MEDS: SIMVASTATIN 20 MG TAB PO SCH (09:50)
[2019-08-22] MEDS: RAMIPRIL 5 MG CAP PO SCH (09:50)
[2019-08-22] MEDS: CEFTRIAXONE SOD 1 GM/NS 50 ML 50 ML IV SCH (13:38)
[2019-08-22] MEDS ORDERED: SODIUM CHLORIDE 0.9% 1000ML 1,000 ML IV ONE (13:45)
[2019-08-22] MEDS: AZITHROMYCIN 500MG/NS 250 ML 250 ML IV SCH (14:12)
--- NOTE | 2019-08-22 14:50 | Progress Note ---
DATE: SUBJECTIVE: The patient reports some headache and some malaise. She did have some low-grade fevers last night. She has had elevated blood sugars during the day. PHYSICAL EXAMINATION: VITAL SIGNS: Blood pressure is 129/75 and the saturation is 100% on 3 L. The pulse is 71. HEENT: Shows no facial swelling or erythema. CARDIAC: Reveals regular rate and rhythm with normal S1 and S2. LUNGS: Auscultation of lungs reveals clear breath sounds bilaterally. There is no wheezing. ABDOMEN: Soft and nontender. There is no rebound or guarding. EXTREMITIES: Shows no leg edema or calf tenderness. There is no cyanosis or clubbing. SKIN: Shows no rashes. LABORATORY DATA: The BUN to creatinine ratio is 15 to 0.8. The blood sugars 215 to 228. The CO2 is 20 and the chloride is 104. Sodium is 137. The AST is 78 and the ALT is 58. The albumin is 2.7. IMPRESSION: 1. Viral pneumonia and COVID-19 infection. 2. Diabetic ketoacidosis. 3. Hypertension. PLAN: 1. The patient will receive a liter of IV fluids now. 2. Increase insulin dosing to medium scale. 3. Repeat electrolytes, BUN and creatinine this evening. If anion gap continues to worsen, the patient may require transfer to the intensive care unit for an insulin drip. 4. Continue to monitor blood pressure. 5. Continue oxygen. 6. Continue antibiotics. Antony Lay MD [facility]/MODL /[id number]
[2019-08-22] MEDS: ONDANSETRON HCL INJ 2MG/ML 2ML 2 MG/ML VIAL IV PRN ×2 (15:23→22:38)
--- NOTE | 2019-08-22 16:50 | NUR ---
progress [id number]
[2019-08-22] MEDS: ENOXAPARIN SOD INJ 40 MG/0.4 ML SYR SC SCH (18:14)
--- NOTE | 2019-08-22 18:15 | Diagnostic Imaging Report ---
EXAM: Right Upper Quadrant Ultrasound INDICATION: Elevated LFTs COMPARISON: None. TECHNIQUE: Transverse and longitudinal images of the right upper abdomen were obtained. FINDINGS: Liver: Size: 15.2 cm in the right midclavicular line, normal Appearance: Increased echogenicity, smooth contour Mass: No focal masses Gallbladder: Stones/Sludge: None Wall: 0.3 cm Appearance: No wall thickening, pericholecystic fluid or hydrops. Sonographic Pagan's Sign: Negative Bile Ducts: Intrahepatic Ducts: No dilatation Extrahepatic Ducts: Common bile duct measures 0.5 cm, no dilatation Pancreas: Visualized portions of the pancreas show no mass or duct dilatation Kidneys: Length: Right 11.7 cm Echogenicity: Normal Collecting System: No hydronephrosis Stone: None Cyst/Mass: None Vessels: Visualized portions of the aorta and IVC appear unremarkable. Main Portal Vein: 0.7 cm, normal size with hepatopetal flow. Free Fluid: No ascites or pleural effusion IMPRESSION: 1. Liver size is upper normal with evidence for steatosis. 2. No cholelithiasis, sonographic evidence for cholecystitis or dilatation of the biliary tree. Signed by: Dr. Ashwin Whalen M.D. on 08/22/2019 6:11 PM
--- NOTE | 2019-08-22 19:54 | Progress Note ---
DATE: SUBJECTIVE: Ms. Magana is feeling a little bit worse of short of breath. She is having some cough and fatigue. The patient's glucose remains elevated. Her lab data reviewed. Discussed with the Pulmonary. PHYSICAL EXAMINATION: GENERAL: She is currently alert and oriented. VITAL SIGNS: Stable, currently afebrile. HEENT: She is not icteric. NECK: Supple. CHEST: Clear. HEART: S1-S2. No murmur. ABDOMEN: Soft. LABORATORY DATA: Sodium 137, potassium 3.9, and creatinine of 0.80. Liver enzyme, AST 38 and ALT 58. IMPRESSION: 1. Coronavirus disease-19. 2. Diabetic ketoacidosis. 3. Superimposed bacterial pneumonia, status post convalescent plasma. PLAN: I agree with correcting her anion gap. She may end up with insulin drip, IV fluid. Recheck in the morning. Continue antibiotic as ordered. MD BAYRON Hitchcock/MODL /[id number]
--- NOTE | 2019-08-22 20:45 | NUR ---
Patient c/o frequent diarrhea. Spoke to Ankush Thomas NP and received orders for Questran 4 gm PO TID, starting now.
[2019-08-22] MEDS: PANTOPRAZOLE SOD 40 MG TABEC PO SCH (22:37)
[2019-08-22] MEDS: CHOLESTYRAMINE 4 GM PACKET PO SCH (22:37)
[2019-08-22 23:08] LABS: ALANINE AMINOTRANSFERASE 58 IU/L (0-55); ALBUMIN 2.6 g/dL (3.5-5.0); ALBUMIN/GLOBULIN RATIO 0.7 (0.8-2.0); ALKALINE PHOSPHATASE 81 IU/L (40-150); ANION GAP 13.8 mmol/L (8-16); BLOOD UREA NITROGEN 14 mg/dL (7-26); BUN/CREATININE RATIO 18 (6-25); CALCIUM 8.3 mg/dL (8.4-10.2); CARBON DIOXIDE 22 mmol/L (22-29); CHLORIDE 103 mmol/L (98-107); CREATININE, SERUM 0.78 mg/dL (0.57-1.11); EST GLOMERULAR FILTRATION RATE > 60 ML/MIN (60-); GLUCOSE 165 mg/dL (74-118); POTASSIUM 3.8 mmol/L (3.5-5.1); SODIUM 135 mmol/L (136-145)
[2019-08-23] VITALS (7 sets, daily range): BP systolic 119–143; BP diastolic 65–77
[2019-08-23] MEDS: ACETAMINOPHEN 325 MG TAB PO PRN ×4 (04:28→21:15)
[2019-08-23 05:46] LABS: BASOPHILS % 0.2 % (0.0-1.0); HEMATOCRIT 33.4 % (34.2-44.1); HEMOGLOBIN 10.7 g/dL (12.0-16.0); LYMPHOCYTES # (AUTO) 1.1 (1.0-3.2); MEAN CORPUSCULAR HEMOGLOBIN 28.2 pg (28-32); MEAN CORPUSCULAR VOLUME 88.1 fL (81-99); MONOCYTES # (AUTO) 0.3 (0.2-0.8); MONOCYTES % 5.1 % (4.4-11.3); PLATELET COUNT 190 x10e3/uL (140-360); RED BLOOD COUNT 3.79 x10e6/uL (3.6-5.1)
[2019-08-23 06:03] LABS: ALANINE AMINOTRANSFERASE 57 IU/L (0-55); ALBUMIN 2.7 g/dL (3.5-5.0); ALBUMIN/GLOBULIN RATIO 0.8 (0.8-2.0); ALKALINE PHOSPHATASE 85 IU/L (40-150); ANION GAP 14.7 mmol/L (8-16); BLOOD UREA NITROGEN 14 mg/dL (7-26); BUN/CREATININE RATIO 18 (6-25); CALCIUM 8.3 mg/dL (8.4-10.2); CARBON DIOXIDE 22 mmol/L (22-29); CHLORIDE 104 mmol/L (98-107); CREATININE, SERUM 0.79 mg/dL (0.57-1.11); EST GLOMERULAR FILTRATION RATE > 60 ML/MIN (60-); GLUCOSE 152 mg/dL (74-118); POTASSIUM 3.7 mmol/L (3.5-5.1); SODIUM 137 mmol/L (136-145)
[2019-08-23] MEDS: INSULIN LISPRO 100 UNIT/1 ML 3ML VIAL SQ SCH ×4 (07:30→21:15)
--- NOTE | 2019-08-23 08:38 | NUR ---
patient resting in bed, she ambulated to restroom, not in any distress, on 02 3L NC, Call light n reach
[2019-08-23] MEDS: GUAIFENESIN 600MG/DEXTROMETHORPHAN 30MG TABSR PO SCH ×2 (08:48→17:00)
[2019-08-23] MEDS: ASPIRIN 81 MG ENTERIC COATED PO SCH (08:48)
[2019-08-23] MEDS: RAMIPRIL 5 MG CAP PO SCH (08:48)
[2019-08-23] MEDS: OLMESARTAN 20 MG TAB PO SCH (08:48)
[2019-08-23] MEDS: CHOLESTYRAMINE 4 GM PACKET PO SCH (08:49)
[2019-08-23] MEDS: SIMVASTATIN 20 MG TAB PO SCH (08:49)
--- NOTE | 2019-08-23 09:30 | NUR ---
Telephone visit attempted by [facility]. No answer. Will follow as able. JOHN TURNER [facility] O: [phone]
[2019-08-23] MEDS ORDERED: DIPHENOXYLATE/ATROPINE TAB PO PRN (12:30)
--- NOTE | 2019-08-23 13:08 | Progress Note ---
DATE: SUBJECTIVE: The patient complains of some discomfort and irritation in her mouth. She has less fatigue than yesterday. She still has some dyspnea. There is no chest pain or fevers. PHYSICAL EXAMINATION: VITAL SIGNS: The blood pressure is 134/77, saturation is 96%, and the pulse is 96. HEENT: Shows no facial swelling or erythema. CARDIAC: Reveals regular rate and rhythm with normal S1 and S2. LUNGS: Auscultation of lungs reveals clear breath sounds bilaterally. There is no wheezing. ABDOMEN: Soft and nontender. There is no rebound or guarding. EXTREMITIES: Shows no leg edema or calf tenderness. LABORATORY DATA: Electrolytes, BUN and creatinine are within normal limits. The albumin is 2.7. White blood cell count is 5.3 and the hemoglobin is 10.7. The platelet count is 190. IMPRESSION: 1. Viral pneumonia and COVID-19 infection. 2. Diabetes. 3. Hypertension. 4. Thrush. PLAN: 1. Continue to monitor blood sugars and give insulin. 2. Continue oxygen. 3. Continue antibiotics. 4. Nystatin. Antony Lay MD [facility] /[id number]
[2019-08-23] MEDS: CEFTRIAXONE SOD 1 GM/NS 50 ML 50 ML IV SCH (14:50)
[2019-08-23] MEDS: CLOTRIMAZOLE 10 MG TAB PO SCH ×3 (15:27→21:15)
[2019-08-23] MEDS: AZITHROMYCIN 500MG/NS 250 ML 250 ML IV SCH (15:27)
[2019-08-23] MEDS: ENOXAPARIN SOD INJ 40 MG/0.4 ML SYR SC SCH (18:09)
--- NOTE | 2019-08-23 20:10 | Progress Note ---
DATE: 08/23/2019 SUBJECTIVE: Ms. Magana, she states she is feeling better. Her IV site is bothering her. She remains on insulin. Her breathing is slightly better. PHYSICAL EXAMINATION: VITAL SIGNS: Her temperature 98.6, heart rate 70, respiration 18, blood pressure 128/60, O2 saturation of 96 on 3 L. It is getting slightly better. GENERAL: She is currently alert, oriented. HEENT: She is not icteric. NECK: Supple. CHEST: Crackles bilateral. HEART: S1 and S2. No murmur. ABDOMEN: Soft. IMPRESSION: COVID-19, superimposed bacterial pneumonia, diabetes mellitus on insulin. Continue Rocephin. Continue azithromycin. Continue Lovenox as ordered. Continue supportive care. Diabetic controlled as ordered. She may need midline for IV antibiotic. We will follow. MD BAYRON Hitchcock/MODL /[id number]
[2019-08-23] MEDS: ONDANSETRON HCL INJ 2MG/ML 2ML 2 MG/ML VIAL IV PRN (21:15)
[2019-08-23] MEDS: PANTOPRAZOLE SOD 40 MG TABEC PO SCH (21:15)
[2019-08-23] MEDS: CEPACOL SORE THROAT LOZENGES PO PRN (21:15)
--- NOTE | 2019-08-23 22:53 | NUR ---
Patient states that she has been removing oxygen when ambulating to restroom. O2 decreased from 3L to 2.5L, SpO2 96%. Will continue to monitor.
--- NOTE | 2019-08-23 22:58 | NUR ---
IR nurse here to place midline. Verified orders, consent, and labs.
--- NOTE | 2019-08-23 23:21 | NUR ---
Midline placed to right upper arm. Okay to use per Aristides BARNES.
[2019-08-24] VITALS (11 sets, daily range): BP systolic 133–159; BP diastolic 69–75
[2019-08-24] MEDS: BENZONATATE 100 MG CAP PO PRN ×3 (00:52→23:22)
--- NOTE | 2019-08-24 00:52 | NUR ---
Notified by [facility] that patient ambulated to restroom without oxygen, and pulse ox dropped to 88% on RA while back in bed. O2 NC increased back to 3L. Patient instructed on proper breathing technique while keeping HOB elevated. Patient stated she wanted to lie flat due to back pain. HOB currently in semi-tom's position. Patient instructed to breathe in through nose. Patient stated, "I can't, I'm a mouth breather." Informed patient that if unable to breathe in through nose and pulse ox stays consistently low, then simple face mask will be required. Patient stated, "I can't be bothered with it right now." Instructed patient to keep oxygen on the next time she uses the restroom. Pulse ox now at 94% on 3L NC. Will continue to monitor.
--- NOTE | 2019-08-24 02:54 | NUR ---
Pulse ox 91% on 3L NC. Patient instructed to breathe through nose once again. Patient once again stated, "I can't, I'm a mouth breather." Encouraged patient to try. Patient able to show return demonstration. Pulse ox back up to 95%. Will continue to monitor.
[2019-08-24] MEDS: ACETAMINOPHEN 325 MG TAB PO PRN ×3 (03:17→15:58)
[2019-08-24] MEDS: CLOTRIMAZOLE 10 MG TAB PO SCH ×5 (04:35→21:59)
[2019-08-24 05:06] LABS: ALANINE AMINOTRANSFERASE 47 IU/L (0-55); ALBUMIN 2.3 g/dL (3.5-5.0); ALBUMIN/GLOBULIN RATIO 0.6 (0.8-2.0); ALKALINE PHOSPHATASE 84 IU/L (40-150); BLOOD UREA NITROGEN 12 mg/dL (7-26); BUN/CREATININE RATIO 16 (6-25); CARBON DIOXIDE 20 mmol/L (22-29); CHLORIDE 105 mmol/L (98-107); CREATININE, SERUM 0.74 mg/dL (0.57-1.11); EST GLOMERULAR FILTRATION RATE > 60 ML/MIN (60-); GLUCOSE 148 mg/dL (74-118); SODIUM 135 mmol/L (136-145)
[2019-08-24] MEDS: INSULIN LISPRO 100 UNIT/1 ML 3ML VIAL SQ SCH ×4 (07:30→21:00)
[2019-08-24] MEDS: RAMIPRIL 5 MG CAP PO SCH (08:41)
[2019-08-24] MEDS: ASPIRIN 81 MG ENTERIC COATED PO SCH (08:41)
[2019-08-24] MEDS: OLMESARTAN 20 MG TAB PO SCH (08:42)
[2019-08-24] MEDS: GUAIFENESIN 600MG/DEXTROMETHORPHAN 30MG TABSR PO SCH ×2 (08:42→17:00)
[2019-08-24] MEDS: SIMVASTATIN 20 MG TAB PO SCH (08:43)
[2019-08-24] MEDS: ONDANSETRON HCL INJ 2MG/ML 2ML 2 MG/ML VIAL IV PRN ×2 (11:30→17:17)
[2019-08-24] MEDS: CEFTRIAXONE SOD 1 GM/NS 50 ML 50 ML IV SCH (15:00)
[2019-08-24] MEDS: AZITHROMYCIN 500MG/NS 250 ML 250 ML IV SCH (15:38)
[2019-08-24] MEDS: BISMUTH SUBSALICYLATE 262 MG/15 ML 8OZ BTL PO PRN (15:58)
--- NOTE | 2019-08-24 16:00 | NUR ---
patient called nurse to room stating she was having difficulty catching her breath. o2 88 on 4L nasal cannula. switched patient to nonrebreather mask and o2 @ 94-96%
[2019-08-24] MEDS ORDERED: ACETAMIN/BUTALBITAL/CAFFEINE TAB PO PRN (16:15)
--- NOTE | 2019-08-24 17:00 | NUR ---
Dr. Lay came to asses patient. going to move patient to ICU for further monitoring. pt still 94% on nonrebreather.
[2019-08-24] MEDS: ENOXAPARIN SOD INJ 40 MG/0.4 ML SYR SC SCH (17:17)
--- NOTE | 2019-08-24 18:09 | Progress Note ---
DATE: SUBJECTIVE: Ms. Magana is feeling worse today. She is on FiO2 of 4 L up to 5 sometimes. OBJECTIVE: VITAL SIGNS: Stable. HEENT: Not icteric. NECK: Supple. CHEST: Few crackles. COR: S1 and S2. No murmur. ABDOMEN: Soft. LABORATORY DATA: Reviewed. Chart reviewed. Discussed with the patient. We talked about possibility of remdesivir. The patient did agree. I discussed with her that this is an investigational medication for COVID-19, it is unapproved drug yet, but is authorized by the FDA for emergency use and fever hypoxemic. She fully understood that. The tested sheet was provided to the patient to be read and understood alternatives, therapies and questions were addressed. She may decide to take the medicine or not, but today the patient agreed to take the medication. We will start the process. We will give it to her once available. MD BAYRON Hitchcock/GARRY /[id number]
--- NOTE | 2019-08-24 19:53 | NUR ---
Transfer patient to room 192 via Hospital Bed. Patient is on rebreathing bag at 8L/min.
--- NOTE | 2019-08-24 20:10 | Progress Note ---
DATE: SUBJECTIVE: The patient has more dyspnea. Her oxygen had to be increased to 100%. She is now saturating 94% on a non-rebreather. She does not complain of diarrhea. There is no nausea or vomiting. PHYSICAL EXAMINATION: VITAL SIGNS: The blood pressure is 159/70 and the pulse is 65. Saturation is 94%. HEENT: Shows no facial swelling or erythema. CARDIAC: Reveals regular rate and rhythm with a normal S1 and S2. LUNGS: Auscultation of lungs reveals crackles at the bases. There is no wheezing. ABDOMEN: Soft, nontender. There is no rebound or guarding. EXTREMITIES: Shows no leg edema or calf tenderness. There is no cyanosis or clubbing. SKIN: Shows no rashes. NEUROLOGICAL: Shows no focal abnormalities. LABORATORY DATA: CO2 is 20, but the chloride is 108. The sodium is 135. BUN to creatinine ratio is normal. Glucose is 148. Albumin is 2.3, hemoglobin is 10.7, platelet count is 190. RADIOGRAPHIC DATA: Chest x-ray is pending. IMPRESSION: 1. Viral pneumonia and COVID-19 infection. 2. Diabetes. 3. Hypertension. 4. Aphthous ulcers. 5. Anemia, unspecified. PLAN: 1. Transfer patient to intensive care unit. 2. Begin Vapotherm. 3. Complete remdesivir. 4. Antibiotics. 5. Lovenox. 6. Case discussed with the patient, nursing staff, Infectious Disease, Internal Medicine, and administration. Greater than 35 minutes in direct critical care time. Antony Lay MD [facility]/[place] /[id number]
[2019-08-24] MEDS: MAALOX/LIDOCAINE/BENADRYL/NYST 30 ML BTL PO PRN (21:00)
[2019-08-24] MEDS: ACETAMIN/BUTALBITAL/CAFFEINE TAB PO PRN (21:59)
[2019-08-24] MEDS: PANTOPRAZOLE SOD 40 MG TABEC PO SCH (21:59)
[2019-08-25] VITALS (24 sets, daily range): BP systolic 127–174; BP diastolic 67–96
[2019-08-25] MEDS ORDERED: SUMATRIPTAN SUCCINATE 25 MG TAB PO STA (01:32)
[2019-08-25] MEDS: GUAIFENESIN 600MG/DEXTROMETHORPHAN 30MG TABSR PO SCH ×2 (02:56→17:08)
[2019-08-25] MEDS: CEPACOL SORE THROAT LOZENGES PO PRN (03:00)
[2019-08-25] MEDS ORDERED: SUMATRIPTAN SUCCINATE 25 MG TAB PO PRN (03:45)
[2019-08-25] MEDS: ONDANSETRON HCL INJ 2MG/ML 2ML 2 MG/ML VIAL IV PRN ×2 (03:57→17:08)
[2019-08-25] MEDS: ALBUTEROL SULFATE HFA 8GM INHALATION AEROSOL INH PRN ×3 (04:05→15:40)
[2019-08-25] MEDS: CLOTRIMAZOLE 10 MG TAB PO SCH ×5 (05:45→20:20)
[2019-08-25 06:34] LABS: ANION GAP 18.2 mmol/L (8-16); BLOOD UREA NITROGEN 15 mg/dL (7-26); BUN/CREATININE RATIO 20 (6-25); CALCIUM 8.9 mg/dL (8.4-10.2); CARBON DIOXIDE 20 mmol/L (22-29); CHLORIDE 103 mmol/L (98-107); CREATININE, SERUM 0.75 mg/dL (0.57-1.11); EST GLOMERULAR FILTRATION RATE > 60 ML/MIN (60-); GLUCOSE 186 mg/dL (74-118); MAGNESIUM 2.1 MG/DL (1.3-2.1); POTASSIUM 4.2 mmol/L (3.5-5.1); SODIUM 137 mmol/L (136-145)
[2019-08-25 07:16] LABS: BASOPHILS % 0.3 % (0.0-1.0); HEMATOCRIT 35.5 % (34.2-44.1); HEMOGLOBIN 11.6 g/dL (12.0-16.0); LYMPHOCYTES # (AUTO) 0.8 (1.0-3.2); MEAN CORPUSCULAR HEMOGLOBIN 27.7 pg (28-32); MEAN CORPUSCULAR HGB CONC 32.7 g/dL (31-35); MONOCYTES # (AUTO) 0.6 (0.2-0.8); MONOCYTES % 6.1 % (4.4-11.3); NEUTROPHILS # (AUTO) 8.8 (2.1-6.9); NEUTROPHILS % 83.9 % (38.7-80.0); PLATELET COUNT 296 x10e3/uL (140-360); RED BLOOD COUNT 4.19 x10e6/uL (3.6-5.1); RED CELL DISTRIBUTION WIDTH 12.8 % (11.7-14.4)
[2019-08-25 07:18] LABS: MEAN CORPUSCULAR VOLUME 84.7 fL (81-99)
[2019-08-25] MEDS: SIMVASTATIN 20 MG TAB PO SCH (07:54)
[2019-08-25] MEDS: INSULIN LISPRO 100 UNIT/1 ML 3ML VIAL SQ SCH ×2 (07:54→11:04)
[2019-08-25] MEDS: ASPIRIN 81 MG ENTERIC COATED PO SCH (07:54)
[2019-08-25] MEDS: RAMIPRIL 5 MG CAP PO SCH (07:54)
[2019-08-25] MEDS: MAALOX/LIDOCAINE/BENADRYL/NYST 30 ML BTL PO PRN (07:54)
[2019-08-25] MEDS: OLMESARTAN 20 MG TAB PO SCH (07:54)
[2019-08-25] MEDS: ACETAMIN/BUTALBITAL/CAFFEINE TAB PO PRN ×2 (11:18→21:45)
[2019-08-25] MEDS: BENZONATATE 100 MG CAP PO PRN ×2 (11:48→21:45)
[2019-08-25] MEDS: AZITHROMYCIN 500MG/NS 250 ML 250 ML IV SCH (13:32)
[2019-08-25] MEDS: CEFTRIAXONE SOD 1 GM/NS 50 ML 50 ML IV SCH (13:32)
[2019-08-25] MEDS ORDERED: DEXTROSE 50% SYRINGE 50 ML IV PRN (15:30)
[2019-08-25] MEDS ORDERED: DEXMEDETOMIDINE 200MCG/NS 50ML 50 ML IV PRN (15:30)
[2019-08-25] MEDS: INSULIN REGULAR, HUMAN 3ML VL 100 UNIT in SODIUM CHLORIDE 0.45% 100 ML 99 ML IV SCH ×2 (17:08)
[2019-08-25] MEDS: ENOXAPARIN SOD INJ 40 MG/0.4 ML SYR SC SCH (17:08)
--- NOTE | 2019-08-25 17:18 | NUR ---
pt started on insulin drip @ 2U. BS 184. pending midline removal and PICC placement. TPN ordered. dr cameron notified of consult. pt vs stable.
[2019-08-25] MEDS: DEXMEDETOMIDINE 200MCG/NS 50ML 50 ML IV PRN (17:30)
--- NOTE | 2019-08-25 19:19 | Progress Note ---
DATE: SUBJECTIVE: The patient had more desaturations today. She was switched to a Vapotherm. She is on 100% with 35 L of oxygen. The patient complains of nausea. She does not have vomiting or diarrhea. She is scheduled to start remdesivir today. PHYSICAL EXAMINATION: VITAL SIGNS: The blood pressure is 147/80 and the saturation is 95%. The pulse is 73. HEENT: Shows no facial swelling or erythema. CARDIAC: Reveals regular rate and rhythm with normal S1 and S2. LUNGS: Auscultation of lungs reveals crackles at bases. ABDOMEN: Soft and nontender. There is no rebound or guarding. EXTREMITIES: Shows no leg edema or calf tenderness. There is no cyanosis or clubbing. SKIN: Shows no rashes. NEUROLOGICAL: Shows no focal abnormalities. LABORATORY DATA: BUN to creatinine ratio is 15 to 0.75. Carbon dioxide is 20 and the other electrolytes are within normal limits. The glucose is 220. White blood cell count is 10.4 and hemoglobin is 11.6. The platelet count is 296. IMPRESSION: 1. Acute respiratory failure. 2. Viral pneumonia and COVID-19 infection. 3. Diabetic ketoacidosis. 4. Aphthous ulcers. 5. Hypertension. 6. Anemia. PLAN: 1. Begin insulin drip and consult Endocrine. 2. Continue Vapotherm. 3. Remdesivir. 4. Lovenox. 5. Address nutrition. 6. Case discussed with Infectious Disease, nursing staff, Respiratory, the patient and administration. Greater than 35 minutes in direct critical care time. Antony Lay MD [facility]/[place] /[id number]
[2019-08-25] MEDS ORDERED: CENTRAL TPN FORMULA 1 BAG IV SCH (20:00)
[2019-08-25] MEDS: PANTOPRAZOLE SOD 40 MG TABEC PO SCH (21:45)
--- NOTE | 2019-08-25 21:56 | Diagnostic Imaging Report ---
EXAMINATION: CHEST XRAY LINE PLACEMENT INDICATION: ^PICC LINE PLACEMENT ^[id number] ^[id number] COMPARISON: 08/21/2019 FINDINGS: AP view TUBES and LINES: Left PICC in place. The tip is probably projecting over left brachycephalic vein. LUNGS: Limited by body habitus and low lung volumes. Diffuse bilateral airspace opacities, markedly increased from prior exam. PLEURA: No significant pleural effusion or pneumothorax. HEART AND MEDIASTINUM: The cardiomediastinal silhouette is obscured. BONES AND SOFT TISSUES: No acute osseous lesion. Soft tissues are unremarkable. UPPER ABDOMEN: No free air under the diaphragm. IMPRESSION: Very limited study. Left PICC in place with tip probably projecting over left brachycephalic vein. No visible pneumothorax. Signed by: Dr. Ming Christian MD on 08/25/2019 9:53 PM
--- NOTE | 2019-08-25 23:58 | NUR ---
Dr. Lay aware that patient is on vapotherm 40L 100% and NRB 15L with O2 sat 96% and RR 20. notified that PICC team unable to insert PICC so midline was placed. stated he will place central line tomorrow and to obtain consent.
[2019-08-26] VITALS (22 sets, daily range): BP systolic 120–160; BP diastolic 65–96
--- NOTE | 2019-08-26 00:18 | Diagnostic Imaging Report ---
EXAMINATION: CHEST XRAY LINE PLACEMENT INDICATION: ^PICC LINE VERIFICATION ^[id number] ^[id number] COMPARISON: 08/25/2019 FINDINGS: AP view TUBES and LINES: Again seen left PICC with tip extending to the right brachiocephalic vein. LUNGS: Diffuse bilateral airspace opacities. PLEURA: No significant pleural effusion or pneumothorax. HEART AND MEDIASTINUM: The cardiomediastinal silhouette is obscured. BONES AND SOFT TISSUES: No acute osseous lesion. Soft tissues are unremarkable. UPPER ABDOMEN: No free air under the diaphragm. IMPRESSION: Left PICC tip projects over the expected location of right brachiocephalic vein. Signed by: Dr. Ming Christian MD on 08/26/2019 12:14 AM
[2019-08-26] MEDS: ACETAMIN/BUTALBITAL/CAFFEINE TAB PO PRN ×4 (01:50→21:58)
[2019-08-26] MEDS: CLOTRIMAZOLE 10 MG TAB PO SCH ×5 (05:00→21:34)
--- NOTE | 2019-08-26 06:03 | Diagnostic Imaging Report ---
EXAMINATION: CHEST SINGLE (PORTABLE) INDICATION: ^viral pneumonia ^[id number] ^[id number] COMPARISON: 08/25/2019 at 2244 hours FINDINGS: AP view TUBES and LINES: Interval retraction of the left PICC with tip now projecting over left axillary region. LUNGS: Low lung volumes. Diffuse bilateral airspace opacities. PLEURA: No pleural effusion or pneumothorax. HEART AND MEDIASTINUM: The cardiomediastinal silhouette is obscured. BONES AND SOFT TISSUES: No acute osseous lesion. Soft tissues are unremarkable. UPPER ABDOMEN: No free air under the diaphragm. IMPRESSION: Interval retraction of left PICC with tip now projecting over left axillary region. Redemonstration of diffuse bilateral airspace opacities, representing multifocal pneumonia. Signed by: Dr. Ming Christian MD on 08/26/2019 5:59 AM
[2019-08-26 06:08] LABS: BASOPHILS % 0.2 % (0.0-1.0); HEMOGLOBIN 10.8 g/dL (12.0-16.0); LYMPHOCYTES % 8.1 % (18.0-39.1); MEAN CORPUSCULAR HEMOGLOBIN 28.2 pg (28-32); MEAN CORPUSCULAR HGB CONC 32.7 g/dL (31-35); MEAN CORPUSCULAR VOLUME 86.2 fL (81-99); MONOCYTES # (AUTO) 0.8 (0.2-0.8); MONOCYTES % 6.5 % (4.4-11.3); NEUTROPHILS # (AUTO) 10.5 (2.1-6.9); NEUTROPHILS % 83.6 % (38.7-80.0); PLATELET COUNT 324 x10e3/uL (140-360); RED BLOOD COUNT 3.83 x10e6/uL (3.6-5.1); RED CELL DISTRIBUTION WIDTH 12.8 % (11.7-14.4)
[2019-08-26 06:26] LABS: ALANINE AMINOTRANSFERASE 26 IU/L (0-55); ALBUMIN 1.9 g/dL (3.5-5.0); ALBUMIN/GLOBULIN RATIO 0.5 (0.8-2.0); ALKALINE PHOSPHATASE 87 IU/L (40-150); ANION GAP 12.7 mmol/L (8-16); BLOOD UREA NITROGEN 18 mg/dL (7-26); BUN/CREATININE RATIO 24 (6-25); CALCIUM 8.6 mg/dL (8.4-10.2); CARBON DIOXIDE 24 mmol/L (22-29); CHLORIDE 105 mmol/L (98-107); CREATININE, SERUM 0.75 mg/dL (0.57-1.11); EST GLOMERULAR FILTRATION RATE > 60 ML/MIN (60-); GLUCOSE 111 mg/dL (74-118); POTASSIUM 3.7 mmol/L (3.5-5.1); SODIUM 138 mmol/L (136-145)
[2019-08-26] MEDS: BENZONATATE 100 MG CAP PO PRN ×2 (06:54→21:58)
[2019-08-26] MEDS: OLMESARTAN 20 MG TAB PO SCH (09:00)
[2019-08-26] MEDS: SIMVASTATIN 20 MG TAB PO SCH (09:00)
[2019-08-26] MEDS: ASPIRIN 81 MG ENTERIC COATED PO SCH (09:00)
[2019-08-26] MEDS: GUAIFENESIN 600MG/DEXTROMETHORPHAN 30MG TABSR PO SCH ×2 (09:00→16:15)
[2019-08-26] MEDS: RAMIPRIL 5 MG CAP PO SCH (09:00)
[2019-08-26] MEDS: DEXMEDETOMIDINE 200MCG/NS 50ML 50 ML IV PRN ×2 (09:01→18:34)
[2019-08-26] MEDS ORDERED: LIDOCAINE 1% 5ML-MPF INJ ONE (10:11)
[2019-08-26] MEDS ORDERED: LIDOCAINE HCL 2% LOCAL 20 ML VIAL ONE (10:20)
--- NOTE | 2019-08-26 11:43 | Progress Note ---
DATE: SUBJECTIVE: The patient continues on Vapotherm as well as 100% non-rebreather. She is saturating 94% to 96%. She has difficulty eating. She has some fever. PHYSICAL EXAMINATION: VITAL SIGNS: The patient is afebrile. The blood pressure is 129/77 and saturation is 97%. The pulse is 70. HEENT: Shows no facial swelling or erythema. CARDIAC: Reveals regular rate and rhythm with normal S1 and S2. LUNGS: Auscultation of lungs reveals crackles at the bases. There is no wheezing. ABDOMEN: Soft and nontender. EXTREMITIES: There is no leg edema or calf tenderness. There is no cyanosis or clubbing. SKIN: Shows no rashes. NEUROLOGICAL: Shows no focal abnormalities. LABORATORY DATA: White blood cell count is 12.55 and the hemoglobin is 10.9. The platelet count is 323. BUN to creatinine ratio is normal. Other electrolytes are within normal limits. The albumin is 1.9. RADIOGRAPHIC DATA: Chest x-ray shows diffuse bilateral airspace disease. IMPRESSION: 1. Viral pneumonia and COVID-19 infection. 2. Diabetes. 3. Hypertension. 4. Aphthous ulcers. 5. Anemia. PLAN: 1. Continue high-flow oxygen and Vapotherm. 2. Complete remdesivir. 3. Continue Lovenox. 4. Monitor electrolytes and hydration closely. 5. Case discussed with nursing staff, Respiratory, Infectious Disease, the patient, and administration. Greater than 35 minutes in direct critical care time. MD MERLINE Arango/[place] /[id number]
--- NOTE | 2019-08-26 11:48 | Operative Report ---
DATE OF PROCEDURE: SURGEON: Antony Lay MD PROCEDURE: Attempted central line placement under ultrasound. PREOPERATIVE DIAGNOSES: Viral pneumonia and respiratory failure. POSTOPERATIVE DIAGNOSES: Viral pneumonia and respiratory failure. CONSENT: Consent was obtained from the patient. ANESTHESIA: 1% lidocaine was used for local anesthesia: PROCEDURE IN DETAIL: The patient was prepped sterilely with chlorhexidine. A 1% lidocaine was used to anesthetize the area. An ultrasound was used to locate the right internal jugular vein. The needle was cannulated under direct visualization. I was unable to pass the wire through the vein. Two additional attempts were made, but I was unable to pass the wire through the vein again. COMPLICATIONS: None. ESTIMATED BLOOD LOSS: None. Antony Lay MD [facility] /[id number]
--- NOTE | 2019-08-26 13:34 | Diagnostic Imaging Report ---
EXAMINATION: CHEST SINGLE (PORTABLE) INDICATION: Central line placement. COMPARISON: 08/26/2019 at 5:35 AM hours. FINDINGS: AP view TUBES and LINES: Left upper extremity PICC with distal tip projected on the axillary region with the distal tip slightly more distally located, which may be in part due to projection Tubing projected on the left hemithorax, likely overlying. LUNGS: Low lung volumes. Diffuse bilateral patchy airspace opacities, unchanged. PLEURA: No pneumothorax. Probable bilateral small pleural effusions. HEART AND MEDIASTINUM: The cardiomediastinal silhouette is obscured. BONES AND SOFT TISSUES: No acute osseous lesion. Soft tissues are unremarkable. UPPER ABDOMEN: No free air under the diaphragm. IMPRESSION: No significant interval change. Diffuse patchy airspace disease/consolidation. Signed by: Dr. Tristen Dietrich M.D. on 08/26/2019 1:31 PM
[2019-08-26] MEDS ORDERED: SODIUM CHLORIDE 0.9% 100 ML 100 ML IV ONE (14:00)
[2019-08-26] MEDS: CEFTRIAXONE SOD 1 GM/NS 50 ML 50 ML IV SCH (14:23)
[2019-08-26] MEDS: AZITHROMYCIN 500MG/NS 250 ML 250 ML IV SCH (14:23)
--- NOTE | 2019-08-26 14:23 | Progress Note ---
DATE: SUBJECTIVE: The patient is seen and evaluated. Available labs and notes reviewed. Discussed with the nurse. The patient remains with shortness of breath. The patient is on non-rebreather and also on 40 L of Vapotherm. She has some anxiety issues and agitation. Breathing improved since the patient went on Precedex; however, gets short of breath when takes BiPAP off to take her medication. The patient is also on an insulin drip. MEDICATIONS: The patient is on Rocephin and Zithromax. REVIEW OF SYSTEMS: As mentioned, the patient is short of breath and not feeling well, still with cough. PHYSICAL EXAMINATION: VITAL SIGNS: Temperature 98.6, pulse 70, respirations 20, and blood pressure 129/77. GENERAL: Awake and alert, on non-rebreather and Vapotherm 40 L. CV: S1, S2. CHEST: Equal expansion. Coarse decreased breath sounds bilaterally. ABDOMEN: Obese, soft, nontender. HEENT: Moist. No pallor. No JVD. EXTREMITIES: Weak. Without edema, clubbing, or cyanosis. LABORATORY STUDIES: White count 12.55, hemoglobin 10.8, platelet 324. Sodium 138, potassium 3.7, creatinine 0.75. Serology coronavirus PCR positive on 08/21/2019. Hepatitis panel negative on 08/23/2019. MICROBIOLOGY: Blood culture 08/20 and urine culture 08/20, negative so far. IMAGING: Chest x-ray from today showed interval retraction of the left PICC line with a tip now projecting over left axillary region. Also re-demonstration of diffuse bilateral airspace opacities representing multifocal pneumonia. The patient's line changed to central line. ASSESSMENT AND PLAN: 1. Novel coronavirus positive as mentioned above. 2. Diabetes. 3. Diabetic ketoacidosis. 4. Superimposed bacterial pneumonia. 5. Multifocal pneumonia per chest x-ray. 6. Status post convalescent plasma. 7. The patient agreed to remdesivir. 8. Continue with antibiotic as above. 9. Continue to monitor the patient clinically and follow up with the labs. 10. We get paperwork ready for consent for remdesivir. Discussed with staff and discussed with Dr. Toribio. Please refer to chart for more information. Dictated by Wolf Hudson PA-C (Al) MD SANNA Hitchcock/[place] /[id number]
[2019-08-26] MEDS ORDERED: DEXTROSE 50% SYRINGE 50 ML IV PRN (15:15)
[2019-08-26 16:05] LABS: FREE T4 (FREE THYROXINE) 1.07 ng/dL (0.8-1.8); THYROID STIMULATING HORMONE 0.44 uIU/mL (0.350-4.940)
--- NOTE | 2019-08-26 16:09 | Consultation ---
DATE OF CONSULTATION: Endocrine Consultation This is a patient of Dr. Kang. Thank you very much for referring this patient. HISTORY OF PRESENT ILLNESS: This is a 64-year-old white female, who was referred to me for evaluation of uncontrolled diabetes mellitus. The patient came to the hospital with history of cough, chest condition, and fever. On further evaluation, patient was found to have COVID - 19 positive. She is hypoxemic and is not on the ventilator at this time. Her other past medical problems include history of type 2 diabetes mellitus with complications and combination of the medications at home including Januvia, Victoza and metformin. She also has family history of diabetes mellitus. Her is also admitted to the hospital with the same problem at this time. The patient also has history of obesity and hypertension. PHYSICAL EXAMINATION: VITAL SIGNS: Today, the patient is sedated. VITAL SIGNS: Her heart rate is around 96, blood pressure is 130/76 mmHg. HEENT: Essentially unremarkable. Thyroid is palpable. Clinically, she is near euthyroid. CHEST: Bilateral vesicular breathing. No rales. CARDIAC: First and second heart sounds. There is no 3rd or 4th heart sound. Ejection systolic murmur sound grade 2/6. LABORATORY DATA: Her blood sugars have been in the range of 132 to 121. Her anion gap is around 12.7. CLINICAL IMPRESSION: Diabetes mellitus type 2, uncontrolled with complications, coronavirus disease positive, pneumonia, hypoxemia, hypertension, and obesity. PLAN: At this time is to do a hemoglobin A1c. Monitor blood sugars closely. We might put on the tube feedings, the patient is not able to eat. She may need to be on the ventilator as per Pulmonary. Thanks again for referring this patient. I will follow this patient with you. MD PAULINA Stanton/[place] /[id number]
[2019-08-26] MEDS: ENOXAPARIN SOD INJ 40 MG/0.4 ML SYR SC SCH (16:15)
[2019-08-26] MEDS ORDERED: CENTRAL TPN FORMULA 1 BAG IV SCH (20:00)
[2019-08-26] MEDS: PANTOPRAZOLE SOD 40 MG TABEC PO SCH (21:34)
[2019-08-26] MEDS: INSULIN REGULAR, HUMAN 3ML VL 100 UNIT in SODIUM CHLORIDE 0.45% 100 ML 99 ML IV SCH ×2 (21:36)
[2019-08-26] MEDS: NOREPINEPHRINE INJ 4MG/4ML 8 MG in DEXTROSE 5% 250ML 250 ML IV SCH (22:00)
[2019-08-27] VITALS (24 sets, daily range): BP systolic 77–156; BP diastolic 53–86
--- NOTE | 2019-08-27 00:58 | Diagnostic Imaging Report ---
EXAM: Abdomen 1 View INDICATION: ^NGT PLACEMENT ^[id number] ^[id number] COMPARISON: Checks x-ray on 08/26/2019 IMPRESSION: Limited study due to underpenetration. No definite nasogastric tube is visualized. There are tubes/lines visualized terminating above the diaphragm which do not project over the expected location of esophagus. Diffuse airspace opacity of the bilateral lungs. Signed by: Dr. Ming Christian MD on 08/27/2019 12:54 AM
[2019-08-27] MEDS: ONDANSETRON HCL INJ 2MG/ML 2ML 2 MG/ML VIAL IV PRN ×2 (01:50→08:25)
--- NOTE | 2019-08-27 04:38 | Diagnostic Imaging Report ---
EXAM: Abdomen 1 View INDICATION: ^VERIFY NGT PLACEMENT ^[id number] ^[id number] COMPARISON: Same the 0021 hours IMPRESSION: Nasogastric tube is visualized with tip projecting over the expected location of the gastric antrum. Signed by: Dr. Ming Christian MD on 08/27/2019 4:35 AM
[2019-08-27] MEDS: CLOTRIMAZOLE 10 MG TAB PO SCH ×5 (05:45→20:35)
[2019-08-27 06:02] LABS: BASOPHILS % 0.3 % (0.0-1.0); EOSINOPHILS % 0.2 % (0.0-6.0); HEMATOCRIT 32.3 % (34.2-44.1); HEMOGLOBIN 10.5 g/dL (12.0-16.0); LYMPHOCYTES # (AUTO) 0.8 (1.0-3.2); LYMPHOCYTES % 4.9 % (18.0-39.1); MEAN CORPUSCULAR HEMOGLOBIN 27.7 pg (28-32); MEAN CORPUSCULAR HGB CONC 32.5 g/dL (31-35); MEAN CORPUSCULAR VOLUME 85.2 fL (81-99); MONOCYTES # (AUTO) 0.7 (0.2-0.8); MONOCYTES % 4.4 % (4.4-11.3); NEUTROPHILS # (AUTO) 13.9 (2.1-6.9); NEUTROPHILS % 88.8 % (38.7-80.0); PLATELET COUNT 367 x10e3/uL (140-360); RED BLOOD COUNT 3.79 x10e6/uL (3.6-5.1); RED CELL DISTRIBUTION WIDTH 13.1 % (11.7-14.4)
[2019-08-27 06:24] LABS: BLOOD UREA NITROGEN 22 mg/dL (7-26); BUN/CREATININE RATIO 31 (6-25); CALCIUM 8.7 mg/dL (8.4-10.2); CARBON DIOXIDE 24 mmol/L (22-29); CHLORIDE 104 mmol/L (98-107); CREATININE, SERUM 0.71 mg/dL (0.57-1.11); EST GLOMERULAR FILTRATION RATE > 60 ML/MIN (60-); GLUCOSE 92 mg/dL (74-118); SODIUM 138 mmol/L (136-145)
[2019-08-27] MEDS: ASPIRIN 81 MG ENTERIC COATED PO SCH (08:24)
[2019-08-27] MEDS: RAMIPRIL 5 MG CAP PO SCH (08:24)
[2019-08-27] MEDS: CEPACOL SORE THROAT LOZENGES PO PRN (08:24)
[2019-08-27] MEDS: OLMESARTAN 20 MG TAB PO SCH (08:24)
[2019-08-27] MEDS: GUAIFENESIN 600MG/DEXTROMETHORPHAN 30MG TABSR PO SCH ×2 (08:24→18:29)
[2019-08-27] MEDS: SIMVASTATIN 20 MG TAB PO SCH (08:24)
[2019-08-27] MEDS: BENZONATATE 100 MG CAP PO PRN (08:25)
[2019-08-27] MEDS: CEFTRIAXONE SOD 1 GM/NS 50 ML 50 ML IV SCH (13:45)
[2019-08-27] MEDS: AZITHROMYCIN 500MG/NS 250 ML 250 ML IV SCH (13:45)
[2019-08-27] MEDS: SODIUM CHLORIDE 0.9% 100 ML 100 ML IV SCH (14:00)
--- NOTE | 2019-08-27 14:01 | Diagnostic Imaging Report ---
EXAM: US GUIDANCE FOR VASCULAR ACCES DATE: 08/26/2019 12:00 AM FINDINGS/IMPRESSION: Sonographic images were obtained for vascular access guidance. The radiologist was not present for the procedure. An intraprocedural verbal report was not requested. Please refer to procedure report by Dr. Lay for procedural details. Provided images demonstrate patent and compressible left internal jugular vein. Signed by: Dr. Rogelio Chand MD on 08/27/2019 1:58 PM
[2019-08-27 14:31] LABS: ABG HCO3 25 mmol/L (22-26); ABG PCO2 40 mmHg (35-45); ABG PH 7.41 (7.35-7.45); ABG PO2 84 mmHg (80-105)
--- NOTE | 2019-08-27 15:45 | NUR ---
Patient video chatted with son, Mars, and he prayed with her. Patient's son, Ashkan, called and made aware of the current situation. Patient intubated due to respiratory distress and patient requesting: "I am too tired to do this anymore, please put me on the machine."
[2019-08-27] MEDS ORDERED: MIDAZOLAM HCL 2 MG/2 ML VIAL ONE (15:55)
--- NOTE | 2019-08-27 16:19 | NUR ---
Nutrition Intervention Note RD Recommendation(s) for Physician: -Recommend Vital AF 1.2 @ goal rate of 55 mL/hr to better meet estimated nutritional needs (provides 1584 kcal, 99 g protein, and 1071 mL water) -Fluid management per MD Plan of Care: RD following, monitoring for tolerance and adequacy, tube feed recommendation Nutrition reason for involvement: enteral nutrition RD Assessment (08/27/19) Pt is a 64 year old female admitted with pneumonia. Pt is COVID-19+ and is on a Venturi Mask. Pt had difficulty eating per MD note; therefore, an NG tube was placed and tube feedings were started. Unable to enter room due to droplet isolation precautions secondary to COVID-19. There are no previous weights in chart. Recommendations provided. Will continue to monitor Principal Problems/Diagnoses: pneumonia PMH: HTN, diabetes GI: soft, non-tender abdomen Skin: intact Labs: (08/26) Na 138, K 4.0, BUN 22, Cr 0.71, Glu 92 Meds: zofran, insulin, protonix, lovenox, antiobiotics Ht: 68 inches Wt: 210 lbs BMI: 31.9 kg/m2 IBW: 140 lbs Malnutrition Evaluation (08/27/19) Unable to assess. Will re-evaluate at follow-up as appropriate. Nutrition Prescription (Diet Order): Glucerna 1.5 @ 50 mL/hr (provides 1800 kcal, 99 g protein) Estimated Nutritional Needs: 3554-1841 calories/day (22-25 kcal/kg IBW) 95-127 g protein/day (1.5-2 g pro/kg IBW) Diet Adequacy: Meeting calorie needs, meeting protein needs Tolerance: Tolerance pending Diet Education Needs Assessment: Diet education not indicated, patient on temporary/transition diet. Nutrition Care Level: moderate Nutrition Diagnosis: Inadequate oral intake related to decreased ability to consume sufficient energy as evidenced by need for enteral nutrition. Goal: Patient will meet 75-100% of estimated needs by follow up Progress: N/A Interventions: -Composition, Rate, Route, Recommended Modifications Monitoring/Evaluation: -Total energy intake, Total protein intake, Formula/Solution, Weight change Signed: Blank Ratliff, RD, LD
[2019-08-27] MEDS: MIDAZOLAM HCL 5MG/ML 10ML VIAL 100 ML IV PRN ×2 (16:20→22:46)
[2019-08-27] MEDS ORDERED: MIDAZOLAM HCL 5MG/ML 10ML VIAL 100 ML IV ONE (16:20)
[2019-08-27] MEDS ORDERED: FENTANYL 2000MCG/NS 250 250 ML ONE (16:46)
[2019-08-27] MEDS: FENTANYL 2000MCG/NS 250 250 ML IV PRN ×2 (16:46→20:00)
--- NOTE | 2019-08-27 18:16 | Diagnostic Imaging Report ---
Examination: Single AP view of the chest. COMPARISON: Portable chest 08/26/2019 INDICATION: Pneumonia, mechanical ventilation IMPRESSION: 1. Lines and Tubes: Endotracheal tube has its distal tip 5.5 cm above the viola. Enteric tube is unavailable at hemidiaphragm, however, the tip is not identified. 2. Slight improvement in bilateral diffuse interstitial and airspace opacities, which may reflect better ventilation. No effusion. 3. Cardiac silhouette is unremarkable. Central pulmonary vasculature is obscured. 4. No acute bony abnormalities. Signed by: Dr. Domo Zamora M.D. on 08/27/2019 6:13 PM
[2019-08-27] MEDS: ENOXAPARIN SOD INJ 40 MG/0.4 ML SYR SC SCH (18:29)
[2019-08-27] MEDS ORDERED: ALBUMIN 25% 25GM 100ML 0.25 GM/ML BTL IV NR (18:45)
--- NOTE | 2019-08-27 18:59 | Progress Note ---
DATE: SUBJECTIVE: Ms. Magana is short of breath. She seems little bit more in distress today. Discussed at length with Dr. Lay. The patient . She is currently on 100%. Her temperature 98.9, heart rate 72, respiration of 22. LABORATORY DATA: Reviewed. Cultures are still pending. Her white count is 15.6 and hemoglobin 10.5. MEDICATION LIST: She is currently on Zofran, Tessalon, Zocor, Altace, Fioricet, insulin, azithromycin, and ceftriaxone. PHYSICAL EXAMINATION: GENERAL: She is alert. VITAL SIGNS: Stable currently. HEENT: Not icteric. NECK: Supple. CHEST: Crackles bilateral. HEART: S1 and S2. ABDOMEN: Soft. Bowel sounds present. No tenderness. EXTREMITIES: Edema. IMPRESSION: Pneumonia, COVID-19, respiratory failure, and diabetes mellitus. Continue with remdesivir. Continue with antibiotic. Continue with Lovenox. Continue supportive care. May end up on the ventilator. We will do our best to avoid that possibility if we can. Concern about leukocytosis, we will recheck. We will follow closely. MD BAYRON Hitchcock/[place] /[id number]
[2019-08-27] MEDS ORDERED: ALBUMIN 25% 12.5GM 50ML 100 ML IV ONE (19:05)
[2019-08-27] MEDS ORDERED: NOREPINEPHRINE 8 MG/D5W 250 ML 250 ML ONE (19:11)
--- NOTE | 2019-08-27 20:29 | NUR ---
Procedure Type: Other - evaluate for picc access on evaluation per previous notes pt has had picc attempted to both arms without success and currently has midline to each upper arm, Also noted Dr Lay attempted central line to rt side without success. contacted Dr Lay due to recent failed picc attempts and picc cancelled at this time with plan to place femoral line if needed.
[2019-08-27] MEDS ORDERED: VANCOMYCIN 1GM/NS 250 ML 250 ML IV ONE (21:00)
--- NOTE | 2019-08-27 21:20 | Operative Report ---
DATE OF PROCEDURE: SURGEON: Antony Lay MD PROCEDURE: Endotracheal intubation. PREOPERATIVE DIAGNOSIS: Respiratory failure. POSTOPERATIVE DIAGNOSIS: Respiratory failure. CONSENT: Consent was obtained from the patient. MEDICATIONS: Etomidate 20 mg, Versed 2 mg, and succinylcholine 100 mg. DESCRIPTION OF PROCEDURE: The patient was placed in supine position. She was preoxygenated with 100% oxygen. She received 2 mg of Versed. She then received etomidate and succinylcholine. She was ventilated with an Ambu bag to improve her saturations into the low 90s. A 3-0 MAC plate and a glide scope were used. The glottis was visualized. A 7-1/2 endotracheal tube was placed through the glottis under direct visualization on the first attempt. There was good CO2 return. There were equal breath sounds bilaterally. COMPLICATIONS: None. ESTIMATED BLOOD LOSS: None. Antony Lay MD [facility] /[id number]
[2019-08-27] MEDS ORDERED: SODIUM CHLORIDE 0.9% 250ML 250 ML ONE (21:27)
[2019-08-27] MEDS: NOREPINEPHRINE INJ 4MG/4ML 8 MG in DEXTROSE 5% 250ML 250 ML IV SCH (22:00)
[2019-08-27 22:34] LABS: ABG PH 7.33 (7.35-7.45)
[2019-08-27 22:35] LABS: ABG HCO3 27 mmol/L (22-26); ABG PCO2 52 mmHg (35-45); ABG PO2 291 mmHg (80-105)
[2019-08-27] MEDS: INSULIN REGULAR, HUMAN 3ML VL 100 UNIT in SODIUM CHLORIDE 0.45% 100 ML 99 ML IV SCH ×2 (22:46)
[2019-08-28] VITALS (37 sets, daily range): BP systolic 79–155; BP diastolic 42–73
[2019-08-28] MEDS: MEROPENEM 1GM 100 ML IV SCH ×4 (00:17→22:22)
[2019-08-28] MEDS: NOREPINEPHRINE INJ 4MG/4ML 8 MG in DEXTROSE 5% 250ML 250 ML IV SCH ×2 (00:30→02:56)
[2019-08-28] MEDS: CLOTRIMAZOLE 10 MG TAB PO SCH ×5 (00:48→19:51)
--- NOTE | 2019-08-28 01:12 | Operative Report ---
DATE OF PROCEDURE: SURGEON: Antony Lay MD PROCEDURE: Central line placement under ultrasound guidance. PREOPERATIVE DIAGNOSES: Coronavirus disease 2019 and hypotension. POSTOPERATIVE DIAGNOSES: Coronavirus disease 2019 and hypotension. CONSENT: Consent was obtained from the patient. ANESTHESIA: 1% lidocaine for local anesthesia DESCRIPTION OF PROCEDURE: The patient was placed in a supine position. The right groin was prepped sterilely. An ultrasound machine was used to locate the right femoral vein. The right femoral vein was cannulated under direct visualization with a 16-gauge needle. A wire was passed through the needle and the dilator was used to open the skin. A triple-lumen catheter was then placed over the wire by the Seldinger technique. All the ports flushed. COMPLICATIONS: None. ESTIMATED BLOOD LOSS: None. Antony Lay MD [facility] /[id number]
[2019-08-28] MEDS: ACETAMINOPHEN 325 MG TAB PO PRN (02:00)
[2019-08-28 05:33] LABS: BASOPHILS # (AUTO) 0.1 (0.0-0.1); BASOPHILS % 0.3 % (0.0-1.0); EOSINOPHILS # (AUTO) 0.1 (0.0-0.4); EOSINOPHILS % 0.7 % (0.0-6.0); HEMATOCRIT 31.7 % (34.2-44.1); HEMOGLOBIN 9.9 g/dL (12.0-16.0); LYMPHOCYTES # (AUTO) 1.3 (1.0-3.2); LYMPHOCYTES % 6.8 % (18.0-39.1); MEAN CORPUSCULAR HEMOGLOBIN 27.7 pg (28-32); MEAN CORPUSCULAR HGB CONC 31.2 g/dL (31-35); MEAN CORPUSCULAR VOLUME 88.5 fL (81-99); MONOCYTES # (AUTO) 1.3 (0.2-0.8); MONOCYTES % 6.7 % (4.4-11.3); NEUTROPHILS # (AUTO) 15.8 (2.1-6.9); NEUTROPHILS % 83.5 % (38.7-80.0); PLATELET COUNT 380 x10e3/uL (140-360); RED BLOOD COUNT 3.58 x10e6/uL (3.6-5.1); RED CELL DISTRIBUTION WIDTH 13.4 % (11.7-14.4)
[2019-08-28 05:40] LABS: ALBUMIN 1.9 g/dL (3.5-5.0); ALBUMIN/GLOBULIN RATIO 0.5 (0.8-2.0); ANION GAP 15.8 mmol/L (8-16); CALCIUM 8.7 mg/dL (8.4-10.2); POTASSIUM 3.8 mmol/L (3.5-5.1)
[2019-08-28 05:41] LABS: CREATININE, SERUM 1.36 mg/dL (0.57-1.11)
[2019-08-28] MEDS ORDERED: ALBUMIN 25% 25GM 100ML 0.25 GM/ML BTL IV ONE (06:15)
[2019-08-28] MEDS ORDERED: ALBUMIN 25% 25GM 100ML 200 ML IV ONE (06:30)
--- NOTE | 2019-08-28 07:00 | NUR ---
Dr Bauer paged regarding new consult.
[2019-08-28] MEDS: RAMIPRIL 5 MG CAP PO SCH (08:49)
[2019-08-28] MEDS: OLMESARTAN 20 MG TAB PO SCH (09:00)
--- NOTE | 2019-08-28 09:28 | Diagnostic Imaging Report ---
EXAMINATION: CHEST SINGLE (PORTABLE) INDICATION: ^resp failure ^[id number] ^[id number] COMPARISON: Chest radiograph 08/27/2019 FINDINGS: TUBES and LINES: Support lines and tubes unchanged. LUNGS: Lungs are moderately inflated. Unchanged bilateral multifocal airspace opacities. PLEURA: No pleural effusion or pneumothorax. HEART AND MEDIASTINUM: Unchanged BONES AND SOFT TISSUES: No acute osseous injury. UPPER ABDOMEN: No free air under the diaphragm. IMPRESSION: No significant interval change. Signed by: Marisa Hanley MD on 08/28/2019 9:24 AM
[2019-08-28] MEDS: PANTOPRAZOLE 40 MG 10ML VIAL IV SCH (09:47)
[2019-08-28] MEDS: ASPIRIN 81 MG ENTERIC COATED PO SCH (09:47)
[2019-08-28] MEDS: GUAIFENESIN 600MG/DEXTROMETHORPHAN 30MG TABSR PO SCH ×2 (09:48→17:16)
[2019-08-28] MEDS: SIMVASTATIN 20 MG TAB PO SCH (09:48)
--- NOTE | 2019-08-28 10:29 | Progress Note ---
DATE: Pulmonary Critical Care Progress Note SUBJECTIVE: The patient required endotracheal intubation last evening. She had subsequent hypotension. She required albumin. A femoral line was placed and she was started on low-dose Levophed. OBJECTIVE: VITAL SIGNS: The blood pressure is 126/55, saturation is 100%, pulse is 82. She is on a PRVC at a rate of 26 with a tidal volume of 430. She is on 12 of PEEP and 60% as well as a femoral line. CARDIAC: Reveals regular rate and rhythm with normal S1 and S2. LUNGS: Auscultation of lungs reveals crackles at the bases. There is no wheezing. ABDOMEN: Soft, nontender. There is no rebound. She has no leg edema. NEUROLOGIC: She has no focal neurological abnormalities. LABORATORY DATA: White blood cell count is increased to 18.8 and hemoglobin is 9.9. The platelet count is 380. The BUN to creatinine ratio is increased to 33/1.36, and CO2 is 21. Albumin is 1.9. RADIOGRAPHIC DATA: Chest x-ray shows bilateral infiltrates. ASSESSMENT: 1. Acute respiratory failure. 2. Viral pneumonia and coronavirus disease -19 infection. 3. Possible superimposed bacterial pneumonia. 4. Acute kidney injury. 5. Diabetes. 6. Hypertension. 7. Aphthous ulcers. 8. Anemia. PLAN: 1. Repeat ABG and continue mechanical ventilation. Adjust ventilator as tolerated. Use lung protective strategy. 2. Broaden antibiotics to Merrem and vanco to cover for any healthcare-associated infections. 3. Nephrology consultation. 4. Continue enteral feedings. 5. Specialty bed to prevent decubitus ulcers. 6. Lovenox for DVT prophylaxis. 7. Complete remdesivir. 8. Case discussed with nightshift nursing, dayshift nursing, Respiratory, Infectious Disease, Internal Medicine, and administration. 9. Greater than 35 minutes in direct critical care time. Antony Lay MD [facility]/[place] /[id number]
--- NOTE | 2019-08-28 11:27 | NUR ---
progress [id number]
[2019-08-28] MEDS: LINEZOLID 600 MG/D5W 300ML 300 ML IV SCH ×2 (12:00→23:20)
[2019-08-28] MEDS ORDERED: LACTATED RINGER'S 1,000 ML INJ ONE (13:45)
--- NOTE | 2019-08-28 15:05 | Consultation ---
DATE OF CONSULTATION: Initial Nephrology Consultation Report REASON FOR CONSULTATION: Rising serum creatinine, CANDELARIA. HISTORY OF PRESENT ILLNESS: Ms. Magana is a 64-year-old female, who is here in the ICU at [facility]. Of note, the patient is intubated. She is on a ventilator. She is not able to give a history, so the history is obtained from the patient's medical records, nursing staff, and caregivers. The patient was admitted on the of this month with a diagnosis of being COVID positive and also with pneumonia. Initially when she came in, it looks like she was also having bacterial pneumonia. Her blood cultures have been negative. However, I am being asked to see her because of her rising serum creatinine. Initially when she came, her serum creatinine was 1.0, however, it went down to like 0.7, 0.8 and today the serum creatinine is 1.36. The patient was on some Levophed last time, but Levophed has been turned off. The patient presented to the hospital reportedly with fevers and cough going on for few days. PAST MEDICAL HISTORY: 1. The patient has a history of diabetes. 2. Hypertension. PAST SURGICAL HISTORY: The patient has undergone hysterectomy. MEDICATIONS: At the present time here in the hospital, the patient is on linezolid, Mycelex, Zocor, Mucinex, Protonix, aspirin, Altace, Tylenol, meropenem, insulin, and midazolam. REVIEW OF SYSTEMS: Cannot be obtained. SOCIAL HISTORY: Cannot be obtained. PHYSICAL EXAMINATION: VITAL SIGNS: Blood pressure 109/51 and pulse 79. GENERAL: The patient is sedated. She is intubated, on a ventilator. CARDIAC: Heart is regular rate and rhythm. LUNGS: Decreased breath sounds at the bases. EXTREMITIES: The patient is wearing pneumatic compression stockings. There appears to be maybe trace edema of the ankles. LABORATORY RESULTS: Sodium 137, potassium 3.8, chloride 104, bicarbonate 21, BUN and creatinine 33 and 1.36. Hemoglobin and hematocrit 10 and 31 respectively. Chest x-ray shows multifocal opacities. Calcium is 8.7 and albumin is 1.9. Blood gas from yesterday evening shows pH 7.33, pCO2 52, pO2 291, and bicarbonate 27. White count is 18, hemoglobin and hematocrit 10 and 31 respectively, platelet count 280,000. IMPRESSION/PLAN: 1. Acute kidney injury. 2. Positive COVID. 3. Superimposed pneumonia. 4. Diabetes. 5. History of hypertension. 6. Hypotension shock. 7. Respiratory failure. PLAN: At the present time, the patient is having acute kidney injury. This is secondary to probably ATN, decreased effective renal blood flow because of the comorbid state and also the sepsis/SIRS/COVID. I will give 1 L of lactated Ringer. Also, may be we will give her one dose of Lasix to make sure that she is nonoliguric. NSAIDs and IV contrast should be avoided. I will stop the ramipril. Currently, she is on broad-spectrum antibiotic and this will be continued. She is on insulin as well. There is no need for renal replacement therapy. I will follow the patient with you. Thank you, Dr. Kang, for this consultation. Ather MD JOLIE Monique/GARRY /[id number]
[2019-08-28] MEDS: SODIUM CHLORIDE 0.9% 100 ML 100 ML IV SCH (15:08)
[2019-08-28] MEDS: ENOXAPARIN SOD INJ 40 MG/0.4 ML SYR SC SCH (17:16)
[2019-08-28 17:19] LABS: ABG PCO2 44 mmHg (35-45); ABG PH 7.35 (7.35-7.45); ABG PO2 217 mmHg (80-105)
[2019-08-28 17:20] LABS: ABG HCO3 24 mmol/L (22-26)
[2019-08-28] MEDS: MIDAZOLAM HCL 5MG/ML 10ML VIAL 100 ML IV PRN (18:46)
[2019-08-28] MEDS: FENTANYL 2000MCG/NS 250 250 ML IV PRN (18:46)
[2019-08-28] MEDS: INSULIN REGULAR, HUMAN 3ML VL 100 UNIT in SODIUM CHLORIDE 0.45% 100 ML 99 ML IV SCH ×2 (20:30)
[2019-08-29] VITALS (25 sets, daily range): BP systolic 81–123; BP diastolic 40–80
[2019-08-29] MEDS: CLOTRIMAZOLE 10 MG TAB PO SCH ×3 (05:00→12:15)
[2019-08-29 05:29] LABS: ALANINE AMINOTRANSFERASE 26 IU/L (0-55); ALBUMIN 1.9 g/dL (3.5-5.0); ALBUMIN/GLOBULIN RATIO 0.6 (0.8-2.0); ALKALINE PHOSPHATASE 105 IU/L (40-150); ANION GAP 12.7 mmol/L (8-16); BLOOD UREA NITROGEN 31 mg/dL (7-26); BUN/CREATININE RATIO 40 (6-25); CALCIUM 7.9 mg/dL (8.4-10.2); CARBON DIOXIDE 26 mmol/L (22-29); CHLORIDE 106 mmol/L (98-107); CREATININE, SERUM 0.77 mg/dL (0.57-1.11); EST GLOMERULAR FILTRATION RATE > 60 ML/MIN (60-); GLUCOSE 195 mg/dL (74-118); POTASSIUM 3.7 mmol/L (3.5-5.1); SODIUM 141 mmol/L (136-145)
[2019-08-29] MEDS: MEROPENEM 1GM 100 ML IV SCH ×3 (05:50→21:38)
[2019-08-29 06:15] LABS: BASOPHILS % 0.3 % (0.0-1.0); EOSINOPHILS # (AUTO) 0.3 (0.0-0.4); EOSINOPHILS % 2.5 % (0.0-6.0); HEMATOCRIT 28.1 % (34.2-44.1); LYMPHOCYTES % 9.6 % (18.0-39.1); MEAN CORPUSCULAR HEMOGLOBIN 27.9 pg (28-32); MONOCYTES # (AUTO) 0.9 (0.2-0.8); MONOCYTES % 8.2 % (4.4-11.3); NEUTROPHILS # (AUTO) 8.3 (2.1-6.9); NEUTROPHILS % 77.8 % (38.7-80.0); PLATELET COUNT 292 x10e3/uL (140-360); RED BLOOD COUNT 3.23 x10e6/uL (3.6-5.1); RED CELL DISTRIBUTION WIDTH 13.4 % (11.7-14.4)
--- NOTE | 2019-08-29 07:38 | Progress Note ---
DATE: 08/28/2019 SUBJECTIVE: Ms. Magana remains in the intensive care unit, intubated today. I called her son. We discussed the case with him and his review of study about steroid. He asked me about it. The patient who is intubated. This is day #1 of the patient. She had a femoral line placed. She was started on Levophed. Her white count increased to 18.8. Discussed with Pulmonary. We started meropenem and linezolid, and Zyvox. The patient is receiving remdesivir, day #3. LABORATORY DATA: Reviewed. As mentioned above, white count is 18.8, hemoglobin 9.9. Her sodium 137, potassium 3.8, and creatinine 1.3. MEDICATIONS: She is currently on meropenem, linezolid, Zocor, Protonix, insulin, and remdesivir. PHYSICAL EXAMINATION: GENERAL: She is currently intubated, sedated. VITAL SIGNS: Stable, afebrile. T-max 101.1. HEENT: Not icteric. NECK: Supple. CHEST: Crackles bilateral. COR: S1, S2. ABDOMEN: Soft. IMPRESSION: 1. Concerned about superimposed bacterial infection, thus we started on meropenem and Zyvox. This is day #1, we will finish at least 7 days and to finish 5 days of remdesivir is ordered. 2. Respiratory failure. 3. Coronavirus disease-19. 4. Diabetes mellitus. 5. Acute on chronic kidney disease. 6. Continue anticoagulation as ordered. MD BAYRON Hitchcock/MODL /[id number]
[2019-08-29] MEDS: ASPIRIN 81 MG ENTERIC COATED PO SCH (08:03)
[2019-08-29] MEDS: PANTOPRAZOLE 40 MG 10ML VIAL IV SCH (08:03)
[2019-08-29] MEDS: SIMVASTATIN 20 MG TAB PO SCH (08:04)
[2019-08-29] MEDS: GUAIFENESIN 600MG/DEXTROMETHORPHAN 30MG TABSR PO SCH (08:32)
[2019-08-29] MEDS: RAMIPRIL 5 MG CAP PO SCH (08:32)
[2019-08-29] MEDS: OLMESARTAN 20 MG TAB PO SCH (08:32)
--- NOTE | 2019-08-29 09:06 | Diagnostic Imaging Report ---
TECHNIQUE: Frontal view of the chest. INDICATION: ^resp failure ^[id number] ^[id number] COMPARISON: Prior day. IMPRESSION: Lines and hardware: Stable. Heart and mediastinum: Stable. Lungs and pleura: Slightly worsened scattered patchy airspace opacities, most prominent in the lower lung zones. Possible small left layering pleural effusion. No pneumothorax. Soft tissues and bones: No acute abnormality. Signed by: Manuel Berg MD on 08/29/2019 9:02 AM
--- NOTE | 2019-08-29 09:13 | Progress Note ---
DATE: SUBJECTIVE: The patient remains sedated on Versed and fentanyl. She is on a PRVC mode of ventilation. She is set at a rate of 26 with a tidal volume of 400 and PEEP of 12. FiO2 is 55%. She received some IV fluids yesterday. Her creatinine has improved. She received antibiotics and white blood cell count is decreased. PHYSICAL EXAMINATION: VITAL SIGNS: The patient is afebrile now, T-max is 99.6, and the blood pressure is 110/52. Saturation is 98%. Pulse is 72. HEENT: Shows no facial swelling or erythema. CARDIAC: Reveals regular rate and rhythm with normal S1, S2. LUNGS: Auscultation of the lungs reveals crackles at the bases. There is no wheezing. ABDOMEN: Soft and nontender. There is no rebound or guarding. EXTREMITIES: Shows no leg edema or calf tenderness. There is no cyanosis or clubbing. SKIN: Shows no rashes. NEUROLOGICAL: Shows no focal abnormalities. The patient is sedated. LABORATORY DATA: White blood cell count is 10.7 and hemoglobin is 9. Platelet count is 292. BUN to creatinine ratio is 31 to 0.77. Other electrolytes are within normal limits. The blood sugars 195. Magnesium is 2.4. Albumin is 1.9. Chest x-ray shows bilateral pulmonary infiltrates. IMPRESSION: 1. Acute respiratory failure. 2. Viral pneumonia and COVID-19 infection. 3. Acute kidney injury. 4. Diabetes. 5. Possible superimposed bacterial pneumonia. 6. Anemia. PLAN: 1. Decrease PEEP to 10 and FiO2 to 50%. Repeat ABG. 2. Continue current antibiotics along with remdesivir. 3. Begin dexamethasone after completion of remdesivir. 4. Continue enteral feedings. 5. Continue insulin drip. 6. Case discussed with nightshift nursing, dayshift nursing, Respiratory, Infectious Disease, Internal Medicine, administration, and family. Greater than 35 minutes in direct critical care time. Antony Lay MD [facility]/MODL /[id number]
[2019-08-29] MEDS: LINEZOLID 600 MG/D5W 300ML 300 ML IV SCH ×2 (10:48→22:34)
--- NOTE | 2019-08-29 12:25 | Progress Note ---
DATE: SUBJECTIVE: Ms. Magana on FiO2 50, on insulin drip, PEEP of 10 and this is day #8 of admission, day #3 of remdesivir. LABORATORY DATA: White count is down to 10.7 and hemoglobin 9. Her sodium 141, potassium 3.7, and creatinine of 0.77. PHYSICAL EXAMINATION: GENERAL: She is intubated and sedated. VITAL SIGNS: Stable, temperature 100, heart rate of 81, respiration 26, and blood pressure 127/60. HEENT: She is not icteric. NECK: Supple. CHEST: Few crackles. COR: S1 and S2. No S3, S4, or murmur. ABDOMEN: Soft. Bowel sounds present. No tenderness. EXTREMITIES: No edema. IMPRESSION AND PLAN: The patient, who is on fentanyl, linezolid, and meropenem since she got healthcare-associated pneumonia and aspiration pneumonia. This is day #3 on meropenem and day #2 on Zyvox. Her white count did normalize. Continue with Lovenox as ordered. I am going to obtain a procalcitonin level tomorrow. Continue with remdesivir as ordered. This is day #3. We will follow. Discussed with the family yesterday. MD BAYRON Hitchcock/GARRY /[id number]
[2019-08-29] MEDS: SODIUM CHLORIDE 0.9% 100 ML 100 ML IV SCH (13:02)
[2019-08-29 13:43] LABS: ABG HCO3 28 mmol/L (22-26); ABG PCO2 42 mmHg (35-45); ABG PH 7.43 (7.35-7.45); ABG PO2 94 mmHg (80-105)
--- NOTE | 2019-08-29 17:14 | NUR ---
Orders for therapy received. Patient on mechanical ventilation and [place] coma scale at 7. Attempted to call Dr. Lay at 5:11pm to discuss plan as patient unable to work on functional mobility but did not make contact. Will contact physician tomorrow. Addendum: 08/29/19 at 1715 by Trisha Dixon PT Amended: Links added.
--- NOTE | 2019-08-29 19:00 | NUR ---
Report received from Misti BARNES.
--- NOTE | 2019-08-29 19:39 | NUR ---
ABG drawn from arterial line. Carline Nelson RN delivering to RT department now.
--- NOTE | 2019-08-29 20:50 | NUR ---
given ABG results, sedation rate, vital signs. Ordered to hold Femoral CVC line removal until in the morning.
[2019-08-29] MEDS: INSULIN GLARGINE 100 UNITS/ML VIAL SQ SCH (21:37)
[2019-08-29] MEDS: FENTANYL 2000MCG/NS 250 250 ML IV PRN (21:38)
[2019-08-29] MEDS: MIDAZOLAM HCL 5MG/ML 10ML VIAL 100 ML IV PRN (21:38)
[2019-08-29 22:43] LABS: ABG HCO3 28 mmol/L (22-26); ABG PCO2 43 mmHg (35-45); ABG PH 7.43 (7.35-7.45); ABG PO2 93 mmHg (80-105)
[2019-08-30] VITALS (26 sets, daily range): BP systolic 86–124; BP diastolic 44–78
--- NOTE | 2019-08-30 00:48 | NUR ---
RT present and assessing and rounding on the pt.
[2019-08-30 05:04] LABS: BASOPHILS % 0.4 % (0.0-1.0); EOSINOPHILS # (AUTO) 0.3 (0.0-0.4); EOSINOPHILS % 3.1 % (0.0-6.0); HEMATOCRIT 28.8 % (34.2-44.1); HEMOGLOBIN 9.1 g/dL (12.0-16.0); LYMPHOCYTES % 9.8 % (18.0-39.1); MEAN CORPUSCULAR HEMOGLOBIN 27.7 pg (28-32); MEAN CORPUSCULAR HGB CONC 31.6 g/dL (31-35); MEAN CORPUSCULAR VOLUME 87.5 fL (81-99); MONOCYTES # (AUTO) 1.1 (0.2-0.8); MONOCYTES % 10.7 % (4.4-11.3); NEUTROPHILS # (AUTO) 7.8 (2.1-6.9); NEUTROPHILS % 74.1 % (38.7-80.0); PLATELET COUNT 261 x10e3/uL (140-360); RED BLOOD COUNT 3.29 x10e6/uL (3.6-5.1); RED CELL DISTRIBUTION WIDTH 13.6 % (11.7-14.4)
[2019-08-30] MEDS: MEROPENEM 1GM 100 ML IV SCH ×3 (05:04→23:09)
[2019-08-30 05:32] LABS: ALANINE AMINOTRANSFERASE 22 IU/L (0-55); ALBUMIN 1.7 g/dL (3.5-5.0); ALBUMIN/GLOBULIN RATIO 0.5 (0.8-2.0); ALKALINE PHOSPHATASE 136 IU/L (40-150); ANION GAP 10.9 mmol/L (8-16); BLOOD UREA NITROGEN 34 mg/dL (7-26); BUN/CREATININE RATIO 45 (6-25); CALCIUM 7.7 mg/dL (8.4-10.2); CARBON DIOXIDE 27 mmol/L (22-29); CHLORIDE 106 mmol/L (98-107); CREATININE, SERUM 0.76 mg/dL (0.57-1.11); EST GLOMERULAR FILTRATION RATE > 60 ML/MIN (60-); GLUCOSE 200 mg/dL (74-118); POTASSIUM 3.9 mmol/L (3.5-5.1); SODIUM 140 mmol/L (136-145)
--- NOTE | 2019-08-30 05:50 | NUR ---
Pt biting on ETT. Oral airway/bite block device placed on patient's mouth.
[2019-08-30 07:06] LABS: ABG HCO3 29 mmol/L (22-26); ABG PCO2 40 mmHg (35-45); ABG PH 7.47 (7.35-7.45); ABG PO2 79 mmHg (80-105)
[2019-08-30] MEDS: PANTOPRAZOLE 40 MG 10ML VIAL IV SCH (08:01)
[2019-08-30] MEDS: ASPIRIN 81 MG ENTERIC COATED PO SCH (08:01)
[2019-08-30] MEDS: SIMVASTATIN 20 MG TAB PO SCH (08:01)
--- NOTE | 2019-08-30 08:38 | Diagnostic Imaging Report ---
EXAMINATION: CHEST SINGLE (PORTABLE) INDICATION: Respiratory failure COMPARISON: Multiple prior chest radiograph, most recently 08/29/2019 FINDINGS: LINES/TUBES:Support lines and tubes unchanged. LUNGS:The lungs are moderately inflated. Unchanged multifocal bilateral patchy airspace and interstitial opacities. PLEURA:No pleural effusion or pneumothorax. MEDIASTINUM:The cardiomediastinal silhouette appears unchanged in size and shape. BONES/SOFT TISSUES:No acute osseous injury. ABDOMEN:No free air under the diaphragm. IMPRESSION: No significant interval change. Signed by: Marisa Hanley MD on 08/30/2019 8:34 AM
[2019-08-30] MEDS: ZINC SULFATE 220 MG CAP PO SCH (09:44)
[2019-08-30] MEDS: ASCORBIC ACID 500 MG TAB PO SCH ×2 (09:44→17:14)
[2019-08-30] MEDS: LINEZOLID 600 MG/D5W 300ML 300 ML IV SCH ×2 (10:36→23:09)
--- NOTE | 2019-08-30 13:12 | NUR ---
Nutrition Intervention Note RD Recommendation(s) for Physician: -Recommend Vital AF 1.2 @ goal rate of 55 mL/hr to better meet estimated nutritional needs (provides 1584 kcal, 99 g protein, and 1071 mL water) -Fluid management per MD Plan of Care: RD following, monitoring for tolerance and adequacy, tube feed recommendation Nutrition reason for involvement: follow up RD Assessment 08/29: Follow up. Pt intubated, sedated, and paralyzed. NGT in place, TF of Glucerna 1.5 infusing at 50 ml/hr this am. Pt currently in insulin drip. Chart reviewed. Current TF rec's remain appropriate. Will continue to monitor. (08/27/19) Pt is a 64 year old female admitted with pneumonia. Pt is COVID-19+ and is on a Venturi Mask. Pt had difficulty eating per MD note; therefore, an NG tube was placed and tube feedings were started. Unable to enter room due to droplet isolation precautions secondary to COVID-19. There are no previous weights in chart. Recommendations provided. Will continue to monitor Principal Problems/Diagnoses: pneumonia PMH: HTN, diabetes GI: LBM 08/27 Skin: intact Labs: 08/29: Na 140, K 3.9, BUN 34, Cr 0.76, Gluc 200, POC Gluc 213-243, Mg 2.4, Ca 7.7 (08/26) Na 138, K 4.0, BUN 22, Cr 0.71, Glu 92 Meds: vitamin C, Zn sulfate, protonic, zocor, abx, zofran, insulin IVF/Drips: Rocuronium drip, Fentanyl drip, insulin at 2 units/hr, NS at 100 ml/hr Ht: 68 inches Wt: 210 lbs BMI: 31.9 kg/m2 IBW: 140 lbs Malnutrition Evaluation (08/27/19) Unable to assess. Will re-evaluate at follow-up as appropriate. Nutrition Prescription (Diet Order): Glucerna 1.5 @ 50 mL/hr (provides 1800 kcal, 99 g protein) Estimated Nutritional Needs: 1373-2518 calories/day (22-25 kcal/kg IBW) 95-127 g protein/day (1.5-2 g pro/kg IBW) Diet Adequacy: Meeting calorie needs, meeting protein needs Tolerance: Tolerating TF Diet Education Needs Assessment: Diet education not indicated, patient on temporary/transition diet. Nutrition Care Level: moderate Nutrition Diagnosis: Inadequate oral intake related to decreased ability to consume sufficient energy as evidenced by need for enteral nutrition. Goal: Patient will meet 75-100% of estimated needs by follow up Progress: progressing Interventions: -Composition, Rate, Route, Recommended Modifications Monitoring/Evaluation: -Total energy intake, Total protein intake, Formula/Solution, Weight change Signed: Krystal Silva RD, LD, [facility]
--- NOTE | 2019-08-30 13:19 | NUR ---
Observed nursing working with patient, patient not responding during hygiene. Patient not appropriate at this time, [place] coma scale at 7 at this time, vented. Attempted to call Dr. Lay around noon today and left message with Anne Marie for call back. Patient may benefit from foot boots to decrease foot drop. Addendum: 08/30/19 at 1321 by Trisha Dixon PT Amended: Links added.
[2019-08-30] MEDS: SODIUM CHLORIDE 0.9% 100 ML 100 ML IV SCH (13:32)
--- NOTE | 2019-08-30 15:46 | Progress Note ---
DATE: SUBJECTIVE: The patient remains on mechanical ventilation. She is now on a PRVC at a rate of 24 with a tidal volume of 400 and a PEEP of 8. FiO2 is set at 50%. She remains on Versed at 3 mg as well as fentanyl at 75 mcg. PHYSICAL EXAMINATION: VITAL SIGNS: The patient is afebrile. The blood pressure is 98/66 and saturation is 99%. The pulse is 77. HEENT: Shows no facial swelling or erythema. CARDIAC: Reveals a regular rate and rhythm with normal S1 and S2. LUNGS: Auscultation of lungs reveals crackles in the bases. There is no wheezing. ABDOMEN: Soft and nontender. There is no rebound or guarding. EXTREMITIES: Shows no leg edema or calf tenderness. There is no cyanosis or clubbing. There is a PICC line in place. LABORATORY DATA: The white blood cell count is 10.4 and the hemoglobin is 9.1. The platelet count is 261. The BUN to creatinine ratio is 34 to 0.76 and the glucose is 200 to 275. The magnesium is 2.4 and the albumin is 1.7. IMPRESSION: 1. Acute respiratory failure. 2. Viral pneumonia and COVID-19 infection. 3. Acute kidney injury. 4. Diabetes. 5. Anemia. PLAN: 1. Continue mechanical ventilation with lung protective strategy. 2. Repeat ABG this evening. 3. Continue insulin drip. 4. Continue antibiotics. 5. Complete remdesivir. 6. Begin dexamethasone. 7. Case discussed with nursing staff, Respiratory, physical therapy, administration, Infectious Disease, and Internal Medicine. Greater than 35 minutes in direct critical care time. Antony Lay MD [facility]/MODL /[id number]
--- NOTE | 2019-08-30 16:14 | NUR ---
Discharging the PT order at Dr. Lay's approval. Dr. Lay and nursing will do PROM at this time per Dr. Lay. Addendum: 08/30/19 at 1615 by Trisha Dixon PT Amended: Links added.
[2019-08-30] MEDS: FENTANYL 2000MCG/NS 250 250 ML IV PRN (17:30)
[2019-08-30] MEDS: DEXAMETHASONE SOD PHOS 10 MG/1 ML VIAL IV SCH (18:15)
--- NOTE | 2019-08-30 18:38 | NUR ---
Dr. Krystal Lay gave orders to remove R femoral central line. R femoral line removed with dressing applied CDI.
--- NOTE | 2019-08-30 20:01 | Progress Note ---
DATE: SUBJECTIVE: Ms. Magana is in the intensive care unit, remains on the ventilator. Discussed with medical team. She is on PRVC at a rate of 24, tidal volume 400. She has a PEEP of 8, FiO2 of 50%. The patient remains on Versed. PHYSICAL EXAMINATION: GENERAL: She is sedated and intubated. VITAL SIGNS: Stable. Currently afebrile. HEENT: She is not icteric. NECK: Supple. CHEST: Crackles bilaterally. HEART: S1 and S2. No S3, S4, or murmur. ABDOMEN: Soft. Bowel sounds present. EXTREMITIES: No edema. SKIN: No rash. LABORATORY DATA: Reviewed. Her white count is 10.4, hemoglobin 9.1, magnesium 2.4. IMPRESSION: 1. Respiratory failure. 2. Viral pneumonia with COVID-19 from superimposed bacterial pneumonia. 3. Acute kidney injury from diabetes mellitus. 4. Anemia. Discussed the plan of care with Critical Care and the medical team at length. Please refer to the order. The patient finished her remdesivir antibiotic as ordered. She is currently on meropenem and linezolid to finish in 7 days. Continue with insulin control. White count is down to 10.46, sodium 140, potassium 3.9, creatinine 0.34. To start methylprednisolone 6 mg IV daily for 24 hours for 10 days now. MD BAYRON Hitchcock/MODL /[id number]
[2019-08-30] MEDS: INSULIN GLARGINE 100 UNITS/ML VIAL SQ SCH (20:30)
--- NOTE | 2019-08-30 22:21 | Progress Note ---
DATE: 08/26/2019 CONSULTING PHYSICIANS: 1. Dr. Toribio with Infectious Disease. 2. Dr. Nick with Endocrinology. 3. Dr. Lay with Pulmonology/Critical Care Medicine. SUBJECTIVE: The patient is still with general malaise. She is unable to eat due to shortness of breath, aphthous ulcers, and cough. The cough makes her headache worse. She remains on Vapotherm and non-rebreather mask. OBJECTIVE: VITAL SIGNS: From today, temperature 98.5, heart rate 68, blood pressure 158/78, respirations 21, oxygen saturation 96%. GENERAL: Appears very ill. LUNGS: Rhonchi throughout. Vapotherm 40 L/minute along with 100% non-rebreather mask with oxygen saturation 96%. HEENT: EOMI. NECK: Supple. No JVD or bruit. CARDIOVASCULAR: Regular rate and rhythm. No murmur. ABDOMEN: Bowel sounds positive. Soft, nontender. EXTREMITIES: Without pitting edema. No clubbing, cyanosis, or marked swelling. NEUROLOGIC: GCS 15. Nonfocal. LABORATORY DATA: WBCs 12.55, hemoglobin 10.8, hematocrit 33, platelets 324. Fingerstick blood glucose level 158. Sodium 138, potassium 3.7, chloride 105, CO2 24, BUN 18, creatinine 0.75, estimated GFR greater than 60, glucose 111. Hemoglobin A1c 9.6%, calcium 8.6, total bilirubin 0.3, AST 32, ALT 26, alkaline phosphatase 87, total protein 5.8, albumin 1.9. TSH 0.440, free T4 1.07. IMAGING: Chest x-ray done this morning shows re-demonstration of diffuse bilateral airspace opacities, representing small multifocal pneumonia. Interval retraction of left PICC with tip now projecting over the left axillary region. Abdomen x-ray, limited study due to under penetration. No definite nasogastric tube visualized. There are tubes and lines visualized terminating above the diaphragm, which do not project over the expected location of the esophagus. Diffuse airspace opacity of the bilateral lungs. ASSESSMENT/PLAN: 1. Multifocal viral community-acquired pneumonia with COVID-19 and superimposed bacterial pneumonia. Continue supplemental oxygen and wean if the patient tolerates it. There are plans for Remdesivir. Continue Rocephin and azithromycin. Continue Lovenox. Pulmonology/Critical Care Medicine and Infectious Disease continue to follow. 2. Acute respiratory failure. Follow up on chest x-ray results. Avoid intubation if possible. 3. Controlled hypertension. Continue olmesartan and ramipril. Blood pressure 158/78. Monitor blood pressure. 4. Uncontrolled type 2 diabetes mellitus with hyperglycemia. Serum glucose 111. Monitor fingerstick blood glucose levels. Sliding scale insulin. Endocrinology consulted. TPN for nutritional support started today. 5. Hyperlipidemia. Lovastatin. 6. Aphthous ulcer may be due to COVID-19. Magic mouthwash. 7. Headache. Continue Fioricet. 8. Prophylaxis. Continue Lovenox and Pepcid. Billing code 17805. Time spent 35 minutes. Dictated by Ankush Thomas, LORNE Vel Kang MD [facility]/MODL /[id number]
--- NOTE | 2019-08-30 22:42 | Progress Note ---
DATE: 08/27/2019 SUBJECTIVE: The patient is lying supine in bed. She has required intubation. Currently on mechanical ventilation. Remains very ill and has nausea. OBJECTIVE: VITAL SIGNS: Temperature 98.9, heart rate 75, blood pressure 123/73, respirations 22, and oxygen saturation 93%. GENERAL: Supine, on mechanical ventilation. Appears very ill. LUNGS: With coarse rhonchi throughout. Size 7.5 ET tube on PRVC mechanical ventilation. HEENT: EOMI. NECK: Supple. CARDIOVASCULAR: Regular rate and rhythm. No murmur. Right femoral triple-lumen central venous catheter. ABDOMEN: Bowel sounds positive. Soft and nontender. EXTREMITIES: No pitting edema. No clubbing, cyanosis, or marked swelling. NEUROLOGICAL: Nonfocal. Sedated with Precedex. LABORATORY DATA: WBCs 15.67, hemoglobin 10.5, hematocrit 32.3, and platelets 367. ABG; pH 7.41, pCO2 40, pO2 84, HC03 25, oxygen saturation 96%, base excess 0, and FiO2 of 100%. Sodium 138, potassium 4.0, chloride 104, CO2 24, BUN 22, creatinine 0.71, estimated GFR greater than 60, glucose 92, and calcium 8.7. Abdominal x-ray shows nasogastric tube visualized with tip projecting over the expected location of the gastric antrum. Chest x-ray showed endotracheal tube has its distal tip 5.5 cm above the viola. Slight improvement in bilateral diffuse air interstitial and airspace opacities, which may reflect better ventilation. No effusion. Central pulmonary vasculature obscured. DIAGNOSES: 1. Multifocal viral community-acquired pneumonia with COVID-19 and superimposed bacterial pneumonia, remdesivir. Continue Rocephin/azithromycin. Ventilator changes per Pulmonology/Critical Care Medicine. Antibiotics as per Infectious Disease. Continue Lovenox. 2. Acute respiratory failure, status post intubation on 08/27/2019. Currently on PRVC mode of ventilation. 3. Controlled hypertension. Continue same. Monitor BP, 123/73 this morning. 4. Uncontrolled type 2 diabetes mellitus with hyperglycemia. Hemoglobin A1c 9.6%. Continue insulin drip. TPN for nutritional support. 5. Hyperlipidemia. Lovastatin. 6. Prophylaxis with Protonix and Pepcid. Billing code 42252. Time spent, 40 minutes. Dictated by Ankush Thomas NP MD [facility]/GARRY /[id number]
[2019-08-30 22:44] LABS: ABG HCO3 29 mmol/L (22-26); ABG PCO2 46 mmHg (35-45); ABG PH 7.41 (7.35-7.45); ABG PO2 84 mmHg (80-105)
--- NOTE | 2019-08-30 23:32 | Progress Note ---
DATE: 08/28/2019 This is a late entry. PRIMARY CARE PHYSICIAN: Mega York DO. CONSULTING PHYSICIANS: 1. Dr. Jessenia Toribio with Infectious Disease. 2. Dr. Aldo Bauer with Nephrology. 3. Dr. Ariel Nick, of Endocrinology. 4. Dr. Antony Lay with Pulmonology/Critical Care Medicine. SUBJECTIVE: On 08/26, the patient was intubated and a central venous catheter was placed by Dr. Lay. The patient has received 1 L of lactated Ringer's. OBJECTIVE: VITAL SIGNS: Temperature 98.8, T-max 101.1, pulse 76, blood pressure 120/54, respirations 18, and oxygen saturation 100%. GENERAL: Appears ill. LUNGS: Coarse rhonchi throughout. Size 7.5 ET tube on PRVC ventilation mode. HEENT: MMM with aphthous ulcers. NECK: Supple. No bruit or JVD. CARDIOVASCULAR: Regular rate and rhythm. No murmur. Levophed drip. ABDOMEN: Bowel sounds positive. Soft and nontender. EXTREMITIES: No pitting edema. No clubbing, cyanosis, or marked swelling. No signs or symptoms of DVT. NEUROLOGIC: Sedated on Versed and fentanyl drips. LABORATORY DATA: WBC 18.87, hemoglobin 9.9, hematocrit 31.7, and platelets 380. ABG; pH 7.35, pCO2 of 44, pO2 of 217, HC03 of 24, and oxygen saturation 100%. Base excess -2. FiO2 of 60%. Sodium 137, potassium 3.8, chloride 104, CO2 of 21, anion gap 15.8, BUN 33, and creatinine 1.36. Estimated GFR 39, glucose 165, fingerstick blood glucose level 147, calcium 8.7, total bilirubin 0.3, AST 53, ALT 26, alkaline phosphatase 134, total protein 5.8, albumin 1.9, Gram stain, culture and sensitivity collected today. Final results pending. IMAGING: Chest x-ray today showed moderately inflated lungs, unchanged bilateral multifocal airspace opacities. No significant interval change. ASSESSMENT AND PLAN: 1. Multifocal viral community-acquired pneumonia due to COVID-19, superimposed bacterial pneumonia with ARDS on mechanical ventilation for acute respiratory failure. a. A. Status post convalescent plasma on 08/21. b. B. Remdesivir started 08/25. c. C. Status post intubation 08/26. d. D. Ventilator changes per Pulmonology/Critical Care Medicine. e. E. Lung protective strategy. f. F. Monitor ABG and chest x-ray results. g. G. Merrem and vancomycin to cover for any healthcare-associated infections. h. H. Antibiotic changes per Infectious Disease. i. I. Continue Lovenox. j. J. Maintain sedation with Versed and Precedex while mechanically ventilated. k. K. Continue DuoNeb's. l. L. Mucinex DM. m. M. Consider dexamethasone. 2. Septic shock with hypotension. Continue Levophed drip and wean it as tolerated. 3. Uncontrolled type 2 diabetes mellitus with hyperglycemia. Hemoglobin A1c 9.6%. Continue enteral feeds and TPN. Monitor fingerstick blood glucose level and titrate insulin drip accordingly. 4. CANDELARIA due to ATN from COVID-19. Nephrology consult BUN 33/creatinine 1.36/estimated GFR 39, status post 1 L LR. Strict intake and output. 5. Sepsis with worsening leukocytosis. Antibiotics per Infectious Disease. Wean Levophed as tolerated. 6. Worsening anemia. Hemoglobin 9.9. Monitor closely. 7. Aphthous ulcers. Magic mouthwash. 8. Hyperlipidemia, simvastatin. 9. Transaminitis. AST 53. Monitor. 10. Prophylaxis Lovenox, Protonix. 11. Billing code 23082. Time spent 45 minutes. Dictated by Ankush Thomas NP Vel Kang MD [facility]/MODL /[id number]
[2019-08-31] VITALS (23 sets, daily range): BP systolic 96–142; BP diastolic 48–70
[2019-08-31] MEDS: MIDAZOLAM HCL 5MG/ML 10ML VIAL 100 ML IV PRN (00:25)
--- NOTE | 2019-08-31 00:42 | Progress Note ---
DATE: 08/29/2019 SUBJECTIVE: The patient remains on mechanical ventilation. Sedated with Versed and fentanyl drips, and also on an insulin drip. OBJECTIVE: VITAL SIGNS: Temperature 99.6, heart rate 79, blood pressure 110/52, respirations 26, oxygen saturation 98%. GENERAL: Remains in ICU, appears ill. LUNGS: Coarse rhonchi throughout on PRVC mode on the vent, FiO2 50%, size 7.5 ET tube. HEENT: EOMI. NECK: Supple. No JVD. CARDIOVASCULAR: Regular rate and rhythm. No murmur. Hypotensive. ABDOMEN: Soft, nontender. Positive bowel sounds. EXTREMITIES: No pitting edema. No signs or symptoms of DVT. NEUROLOGICAL: Sedated with Versed and fentanyl drips. LABORATORY DATA: WBC 10.71, hemoglobin 9.0, hematocrit 28.1, platelets 292. ABG; pH 7.43, PCO2 of 42, PO2 of 94, HCO3 of 28, SaO2 of 97, base excess 3, FiO2 50%. Sodium 141, potassium 3.7, chloride 106, CO2 of 26, anion gap 12.7, BUN 31, creatinine 0.77, estimated GFR greater than 60, glucose 195, calcium 7.9, magnesium 2.5, total bilirubin 0.3, AST 40, ALT 26, alkaline phosphatase 105, total protein 5.2, albumin 1.9. Fingerstick blood glucose level 205. IMAGING: Chest x-ray today with slightly worsened scattered patchy airspace opacities most prominent in the lower lung zones, possible small left layering pleural effusion, no pneumothorax. ASSESSMENT AND PLAN: 1. Multifocal viral community-acquired pneumonia due to coronavirus disease-19, superimposed bacterial pneumonia with acute respiratory distress syndrome, on mechanical ventilation for acute respiratory failure, status post intubation 08/27/2019. Continue remdesivir, Merrem, Zyvox as per ID recs. Continue Lovenox. Maintain sedation with drips while on mechanical ventilation. Lung protective strategy, changes as per Pulmonary/Critical Care Medicine. Monitor ABG and chest x-ray results. Continue DuoNeb and Mucinex DM. Consider dexamethasone. 2. Sepsis, status post septic shock, history of hypertension. Levophed drip has been weaned off. Olmesartan on hold since 08/26, ramipril on hold since 08/27. Continue antibiotics as per ID. 3. Uncontrolled type 2 diabetes mellitus with hyperglycemia. Hemoglobin A1c 9.6%. Maintain nutritional support with TPN and enteral feeds. Titrate insulin drip accordingly. 4. Acute kidney disease due to acute tubular necrosis from coronavirus disease-19. Nephrology follows. IV fluids on hold for now. Keep intake and output even. Monitor strict I and O. 31/0.77/greater than 60. 5. Worsening anemia. H/H 9.0/28.1. Check fecal occult blood test. 6. Aphthous ulcers. Magic mouthwash. 7. Hyperlipidemia. Simvastatin. 8. Transaminitis. AST 40, improving. 9. Prophylaxis; Lovenox, Protonix. Billing code 30801. Time spent 35 minutes. Dictated by Ankush Thomas NP MD RHON[facility] PorterP/MODL /[id number]
[2019-08-31 05:32] LABS: BASOPHILS % 0.2 % (0.0-1.0); HEMATOCRIT 29.6 % (34.2-44.1); HEMOGLOBIN 9.3 g/dL (12.0-16.0); LYMPHOCYTES # (AUTO) 0.7 (1.0-3.2); LYMPHOCYTES % 5.8 % (18.0-39.1); MEAN CORPUSCULAR HEMOGLOBIN 28.1 pg (28-32); MEAN CORPUSCULAR HGB CONC 31.4 g/dL (31-35); MEAN CORPUSCULAR VOLUME 89.4 fL (81-99); MONOCYTES # (AUTO) 0.6 (0.2-0.8); MONOCYTES % 4.8 % (4.4-11.3); NEUTROPHILS % 86.5 % (38.7-80.0); PLATELET COUNT 256 x10e3/uL (140-360); RED BLOOD COUNT 3.31 x10e6/uL (3.6-5.1); RED CELL DISTRIBUTION WIDTH 13.5 % (11.7-14.4)
[2019-08-31 05:42] LABS: ALANINE AMINOTRANSFERASE 19 IU/L (0-55); ALBUMIN 1.7 g/dL (3.5-5.0); ALBUMIN/GLOBULIN RATIO 0.5 (0.8-2.0); ALKALINE PHOSPHATASE 93 IU/L (40-150); BLOOD UREA NITROGEN 33 mg/dL (7-26); BUN/CREATININE RATIO 45 (6-25); CALCIUM 7.6 mg/dL (8.4-10.2); CARBON DIOXIDE 29 mmol/L (22-29); CHLORIDE 103 mmol/L (98-107); CREATININE, SERUM 0.74 mg/dL (0.57-1.11); EST GLOMERULAR FILTRATION RATE > 60 ML/MIN (60-); GLUCOSE 369 mg/dL (74-118); SODIUM 138 mmol/L (136-145)
[2019-08-31] MEDS: MEROPENEM 1GM 100 ML IV SCH (06:31)
[2019-08-31] MEDS ORDERED: ALBUMIN 25% 25GM 100ML 0.25 GM/ML BTL IV ONE (07:45)
[2019-08-31] MEDS ORDERED: ALBUMIN 25% 25GM 100ML 100 ML IV ONE (08:00)
[2019-08-31] MEDS ORDERED: FUROSEMIDE INJ 10 MG/ML 2 ML VIAL IV ONE (08:00)
[2019-08-31 08:56] LABS: ABG HCO3 29 mmol/L (22-26); ABG PCO2 42 mmHg (35-45); ABG PH 7.44 (7.35-7.45); ABG PO2 90 mmHg (80-105)
--- NOTE | 2019-08-31 08:59 | Diagnostic Imaging Report ---
EXAMINATION: CHEST SINGLE (PORTABLE) INDICATION: Respiratory failure COMPARISON: Chest radiograph 08/30/2019 FINDINGS: LINES/TUBES:Support lines and tubes unchanged. LUNGS:The lungs are moderately inflated. Unchanged bilateral multifocal patchy opacities. PLEURA:Small left pleural effusion. No pneumothorax. MEDIASTINUM:The cardiomediastinal silhouette appears unchanged in size and shape. BONES/SOFT TISSUES:No acute osseous injury. ABDOMEN:No free air under the diaphragm. IMPRESSION: Unchanged bilateral patchy opacities. Small left pleural effusion. Signed by: Marisa Hanley MD on 08/31/2019 8:56 AM
[2019-08-31] MEDS: ASPIRIN 81 MG ENTERIC COATED PO SCH (09:00)
--- NOTE | 2019-08-31 09:19 | Progress Note ---
DATE: Pulmonary Critical Care Progress Note SUBJECTIVE: The patient has remained on PRVC mode of ventilation overnight. She is currently on a PRVC at a rate of 24 with a tidal volume of 400. Her PEEP is set at 8 and her FiO2 is set of 45%. She is saturating 95%. She remains on Versed at 4 mg and fentanyl 100 mcg. She is receiving enteral feedings. PHYSICAL EXAMINATION: VITAL SIGNS: The patient is afebrile. The blood pressure is 112/50. Saturation is 97%. HEENT: Shows no facial swelling or erythema. There is an oral endotracheal tube. CARDIAC: Reveals regular rate and rhythm with normal S1, S2. LUNGS: Auscultation of lungs reveals rhonchorous breath sounds bilaterally. There is no wheezing. ABDOMEN: Soft, nontender. There is no rebound or guarding. EXTREMITIES: Shows trace edema. NEUROLOGICAL: Shows the patient to be sedated. She does have Provone boots to prevent footdrop. LABORATORY DATA: The BUN to creatinine ratio is 33 to 0.74. The blood sugars have been 290-370. The carbon dioxide is 29. Albumin is 1.7. White blood cell count is 12.7 and hemoglobin is 9.3. The platelet count is 256. Blood gas from last night shows a pH of 7.41, 46, 84 and 29. IMPRESSION: 1. Acute respiratory failure. 2. Viral pneumonia COVID-19 infection. 3. Diabetes. 4. Anemia. 5. Hypoalbuminemia. PLAN: 1. Continue ventilation with lung protective strategy. 2. Repeat ABG. 3. Wean sedation as tolerated. 4. Consider spontaneous breathing trial later today or tomorrow. 5. Continue insulin drip. 6. The patient to receive albumin and Lasix today. 7. Continue dexamethasone. Case discussed with nightshift nursing, dayshift nursing, Respiratory, Internal Medicine, family, Infectious Disease, Endocrinology, and administration. Greater than 35 minutes in direct critical care time. Antony Lay MD [facility]/MODL /[id number]
[2019-08-31] MEDS: EYE LUBRICANT OPTH OINT 3.5GM TUBE OP SCH (10:54)
[2019-08-31] MEDS: ZINC SULFATE 220 MG CAP PO SCH (10:54)
[2019-08-31] MEDS: SIMVASTATIN 20 MG TAB PO SCH (10:54)
[2019-08-31] MEDS: PANTOPRAZOLE 40 MG 10ML VIAL IV SCH (10:54)
[2019-08-31] MEDS: ASCORBIC ACID 500 MG TAB PO SCH ×2 (10:54→18:45)
[2019-08-31] MEDS: LINEZOLID 600 MG/D5W 300ML 300 ML IV SCH (11:30)
--- NOTE | 2019-08-31 18:05 | Progress Note ---
DATE: SUBJECTIVE: Ms. Magana remains in intensive care unit, intubated. Sedated. She is currently on PRVC 24, PEEP is 8, FiO2 of 45%, saturating 95% on Versed 4 mg and fentanyl, on feeding tube. PHYSICAL EXAMINATION: GENERAL: Noncommunicative, sedated. VITAL SIGNS: Stable. Afebrile. HEENT: She is not icteric. NECK: Supple. CHEST: Clear. HEART: S1 and S2. No S3, S4, or murmur. ABDOMEN: Soft. She is currently on day #7 of linezolid and meropenem also day #8. I am going to stop them at the present time. Her cultures are negative so far. Her white count is 12.7, but she is on steroids. Diabetes, continue insulin as ordered. We will follow. MD BAYRON Hitchcock/MODL /[id number]
[2019-08-31] MEDS: DEXAMETHASONE SOD PHOS 10 MG/1 ML VIAL IV SCH (18:45)
[2019-08-31 21:06] LABS: ABG HCO3 29 mmol/L (22-26); ABG PCO2 40 mmHg (35-45); ABG PH 7.47 (7.35-7.45); ABG PO2 82 mmHg (80-105)
[2019-08-31] MEDS: INSULIN GLARGINE 100 UNITS/ML VIAL SQ SCH (21:45)
[2019-09-01] VITALS (24 sets, daily range): BP systolic 104–176; BP diastolic 53–86
[2019-09-01 06:04] LABS: BASOPHILS % 0.2 % (0.0-1.0); HEMATOCRIT 29.9 % (34.2-44.1); HEMOGLOBIN 9.5 g/dL (12.0-16.0); LYMPHOCYTES # (AUTO) 1.2 (1.0-3.2); LYMPHOCYTES % 7.3 % (18.0-39.1); MEAN CORPUSCULAR HEMOGLOBIN 27.8 pg (28-32); MEAN CORPUSCULAR HGB CONC 31.8 g/dL (31-35); MEAN CORPUSCULAR VOLUME 87.4 fL (81-99); MONOCYTES # (AUTO) 1.3 (0.2-0.8); MONOCYTES % 7.7 % (4.4-11.3); NEUTROPHILS # (AUTO) 13.3 (2.1-6.9); NEUTROPHILS % 81.8 % (38.7-80.0); PLATELET COUNT 296 x10e3/uL (140-360); RED BLOOD COUNT 3.42 x10e6/uL (3.6-5.1); RED CELL DISTRIBUTION WIDTH 13.3 % (11.7-14.4)
[2019-09-01 06:21] LABS: ALANINE AMINOTRANSFERASE 18 IU/L (0-55); ALBUMIN/GLOBULIN RATIO 0.5 (0.8-2.0); ALKALINE PHOSPHATASE 102 IU/L (40-150); ANION GAP 9.2 mmol/L (8-16); BLOOD UREA NITROGEN 34 mg/dL (7-26); BUN/CREATININE RATIO 46 (6-25); CARBON DIOXIDE 32 mmol/L (22-29); CHLORIDE 104 mmol/L (98-107); CREATININE, SERUM 0.74 mg/dL (0.57-1.11); EST GLOMERULAR FILTRATION RATE > 60 ML/MIN (60-); GLUCOSE 277 mg/dL (74-118); POTASSIUM 5.2 mmol/L (3.5-5.1); SODIUM 140 mmol/L (136-145)
[2019-09-01] MEDS: INSULIN REGULAR, HUMAN 3ML VL 100 UNIT in SODIUM CHLORIDE 0.9% 99 ML IV SCH ×2 (06:50)
--- NOTE | 2019-09-01 07:28 | Diagnostic Imaging Report ---
EXAMINATION: CHEST SINGLE (PORTABLE) INDICATION: ^resp failure ^[id number] ^0500 COMPARISON: 08/31/2019 IMPRESSION: Unchanged endotracheal tube and partially visualized nasogastric tube. Unchanged bilateral pulmonary airspace disease, right lung greater than left, consistent with known viral infection. Unchanged small left pleural effusion. No pneumothorax. Stable cardiac silhouette. Signed by: Rajat Carranza MD on 09/01/2019 7:24 AM
--- NOTE | 2019-09-01 08:18 | Progress Note ---
DATE: Pulmonary Critical Care Progress Note SUBJECTIVE: The patient continues to require insulin drip. She is now on 7 units an hour. She is also receiving enteral feedings which were held early this morning. The patient's Versed and fentanyl were held early this morning and she was switched to a CPAP of 5 with a pressure support of 8. She is breathing 10 to 12 times a minute with tidal volumes of 500 to 550 mL. PHYSICAL EXAMINATION: VITAL SIGNS: The blood pressure is 138/67 and pulse ox is 96%. HEENT: Shows no facial swelling or erythema. There is an oral endotracheal tube in place. The patient has a midline on the right and on the left. She also has an arterial line. CARDIAC: Reveals regular rate and rhythm with normal S1 and S2. LUNGS: Auscultation of lungs reveals decreased breath sounds at the bases. There is no wheezing. ABDOMEN: Soft and nontender. There is no rebound or guarding. EXTREMITIES: Shows no leg edema or calf tenderness. There is no cyanosis or clubbing. SKIN: Shows no rashes. NEUROLOGICAL: Shows no focal abnormalities. The patient does wake up and respond. LABORATORY DATA: White blood cell count is 16.2 and hemoglobin is 9.5. The platelet count is 296. The BUN to creatinine ratio is 34 to 0.74. The potassium is 3.2. Blood sugars are 250 to 275. Albumin is 2.0. RADIOGRAPHIC DATA: Chest x-ray shows bilateral infiltrates that are unchanged. IMPRESSION: 1. Acute respiratory failure. 2. Viral pneumonia and COVID-19 infection. 3. Diabetes. 4. Leukocytosis. 5. Anemia. PLAN: 1. Continue spontaneous breathing trial and extubate as tolerated. 2. Continue to hold sedation. 3. Continue insulin drip. 4. Continue dexamethasone. 5. Case discussed with nightshift nursing, dayshift nursing, Respiratory, Infectious Disease, Internal Medicine, administration, and sons. Greater than 35 minutes in direct critical care time. Antony Lay MD [facility]/MODL /[id number]
[2019-09-01 08:53] LABS: ABG HCO3 32 mmol/L (22-26); ABG PCO2 49 mmHg (35-45); ABG PH 7.42 (7.35-7.45); ABG PO2 89 mmHg (80-105)
[2019-09-01] MEDS: ASPIRIN 81 MG ENTERIC COATED PO SCH (09:00)
[2019-09-01] MEDS: EYE LUBRICANT OPTH OINT 3.5GM TUBE OP SCH (09:00)
[2019-09-01] MEDS: ASCORBIC ACID 500 MG TAB PO SCH ×2 (11:09→18:06)
[2019-09-01] MEDS: ZINC SULFATE 220 MG CAP PO SCH (11:09)
[2019-09-01] MEDS: SIMVASTATIN 20 MG TAB PO SCH (11:09)
[2019-09-01] MEDS: PANTOPRAZOLE 40 MG 10ML VIAL IV SCH (11:09)
--- NOTE | 2019-09-01 17:24 | Progress Note ---
DATE: 08/30/2019 SUBJECTIVE: Kaylee Magana continue to be intubated, sedated, but clinically she looks a little bit better from her vent setting. She continues insulin drip at 7 units/hour. OBJECTIVE: HEENT: Normocephalic. NECK: Supple. CHEST: Crackles. HEART: S1, S2. No S3, S4, murmur. ABDOMEN: Soft. Bowel sounds present. EXTREMITIES: No edema. SKIN: No rash. She remains on the ventilator, CPAP of 5, and pressure support of 8, and she is breathing 10 to 12 minute. However, she is lethargic, but the plan for her to be extubated soon. She continued to improve. IMPRESSION: COVID-19, diabetes mellitus, acute respiratory distress syndrome, respiratory failure, currently is doing well. She is on insulin, Tylenol, Zofran, hydralazine. She is on dexamethasone. Continue as ordered. We will follow. MD BAYRON Hitchcock/MODL /[id number]
[2019-09-01] MEDS: DEXAMETHASONE SOD PHOS 10 MG/1 ML VIAL IV SCH (18:06)
[2019-09-01] MEDS: ONDANSETRON HCL INJ 2MG/ML 2ML 2 MG/ML VIAL IV PRN (20:15)
[2019-09-01 20:57] LABS: ABG HCO3 31 mmol/L (22-26); ABG PCO2 41 mmHg (35-45); ABG PH 7.49 (7.35-7.45); ABG PO2 81 mmHg (80-105)
[2019-09-01] MEDS ORDERED: INSULIN GLARGINE 100 UNITS/ML VIAL SQ SCH (21:00)
[2019-09-01] MEDS: DEXMEDETOMIDINE 200MCG/NS 50ML 50 ML IV PRN (21:07)
[2019-09-02] VITALS (23 sets, daily range): BP systolic 123–186; BP diastolic 64–98
[2019-09-02 06:21] LABS: BASOPHILS % 0.2 % (0.0-1.0); HEMOGLOBIN 10.8 g/dL (12.0-16.0); LYMPHOCYTES # (AUTO) 1.4 (1.0-3.2); LYMPHOCYTES % 8.3 % (18.0-39.1); MEAN CORPUSCULAR HEMOGLOBIN 27.6 pg (28-32); MEAN CORPUSCULAR HGB CONC 31.8 g/dL (31-35); MONOCYTES # (AUTO) 1.6 (0.2-0.8); MONOCYTES % 9.1 % (4.4-11.3); NEUTROPHILS # (AUTO) 13.7 (2.1-6.9); NEUTROPHILS % 79.6 % (38.7-80.0); PLATELET COUNT 380 x10e3/uL (140-360); RED BLOOD COUNT 3.91 x10e6/uL (3.6-5.1); RED CELL DISTRIBUTION WIDTH 13.4 % (11.7-14.4)
[2019-09-02] MEDS: DEXMEDETOMIDINE 200MCG/NS 50ML 50 ML IV PRN ×2 (06:36)
[2019-09-02] MEDS: ONDANSETRON HCL INJ 2MG/ML 2ML 2 MG/ML VIAL IV PRN (06:36)
[2019-09-02 06:50] LABS: ALANINE AMINOTRANSFERASE 27 IU/L (0-55); ALBUMIN 2.2 g/dL (3.5-5.0); ALBUMIN/GLOBULIN RATIO 0.5 (0.8-2.0); ALKALINE PHOSPHATASE 134 IU/L (40-150); ANION GAP 13.3 mmol/L (8-16); BLOOD UREA NITROGEN 38 mg/dL (7-26); BUN/CREATININE RATIO 49 (6-25); CARBON DIOXIDE 29 mmol/L (22-29); CHLORIDE 99 mmol/L (98-107); CREATININE, SERUM 0.77 mg/dL (0.57-1.11); EST GLOMERULAR FILTRATION RATE > 60 ML/MIN (60-); GLUCOSE 276 mg/dL (74-118); POTASSIUM 5.3 mmol/L (3.5-5.1); SODIUM 136 mmol/L (136-145)
--- NOTE | 2019-09-02 07:48 | Diagnostic Imaging Report ---
EXAMINATION: CHEST SINGLE (PORTABLE) COMPARISON: 09/01/2019 INDICATION: Intubated, COVID ^resp failure ^[id number] ^0510 DISCUSSION: Frontal view of the chest obtained at 0558 hours. HEART AND MEDIASTINUM: Stable mild cardiomegaly and aortic tortuosity. LINES: Endotracheal tube terminates at the clavicular heads. Enteric tube extends past the diaphragm. Left midline catheter terminates at the axilla. LUNGS/PLEURA: Low lung volumes with multifocal pulmonary infiltrates. Left diaphragm remains obscured suggestive of pleural effusion. No large effusions. No pneumothorax. BONES AND SOFT TISSUES: Stable. IMPRESSION: 1. Support devices as described above. 2. No change in multifocal pulmonary infiltrates. Stable small left pleural effusion. Signed by: Dr. Shailesh Cherry MD on 09/02/2019 7:44 AM
[2019-09-02] MEDS: PANTOPRAZOLE 40 MG 10ML VIAL IV SCH (09:00)
[2019-09-02] MEDS: ASPIRIN 81 MG ENTERIC COATED PO SCH (09:00)
[2019-09-02 09:34] LABS: ABG HCO3 32 mmol/L (22-26); ABG PCO2 39 mmHg (35-45); ABG PH 7.52 (7.35-7.45); ABG PO2 98 mmHg (80-105)
--- NOTE | 2019-09-02 10:06 | Progress Note ---
DATE: Pulmonary Critical Care Progress Note SUBJECTIVE: The patient's sedation has been held overnight. She is now more responsive. She is following commands. She is placed back on CPAP of 5 and pressure support of 8. She is breathing about 14 to 18 times a minute with tidal volumes of 450 mL. She remains on Precedex. Her enteral feedings have been held. PHYSICAL EXAMINATION: VITAL SIGNS: The patient is afebrile. The vital signs are stable. Blood pressure is 146/67 and the pulse is 65. HEENT: Shows no facial swelling or erythema. CARDIAC: Reveals regular rate and rhythm with normal S1 and S2. LUNGS: Auscultation of lungs reveals rhonchorous breath sounds bilaterally. There is no wheezing. ABDOMEN: Soft and nontender. There is no rebound or guarding. EXTREMITIES: Shows no leg edema or calf tenderness. There is no cyanosis or clubbing. SKIN: Shows no rashes. NEUROLOGICAL: Shows no focal abnormalities. LABORATORY DATA: White blood cell count is 17.2 and the hemoglobin is 10.8. The platelet count is 380. The BUN to creatinine ratio is 38 to 0.77. Potassium is 5.3. The albumin is 2.82. RADIOGRAPHIC DATA: Chest x-ray shows multifocal infiltrates. IMPRESSION: 1. Acute respiratory failure. 2. Viral pneumonia and COVID-19 infection. 3. Diabetes. 4. Leukocytosis. 5. Anemia. PLAN: 1. Continue spontaneous breathing trial and work towards extubation. 2. Continue insulin drip. 3. Continue dexamethasone. 4. Continue current antibiotics. 5. Lovenox for DVT prophylaxis. 6. Specialty bed to prevent decubitus ulcers. 7. Case discussed with shift mechanic nursing, day shift nursing, Respiratory, Infectious Disease, family, and administration. Greater than 35 minutes in direct critical care time. Antony Lay MD [facility]/GARRY /[id number]
--- NOTE | 2019-09-02 15:53 | Progress Note ---
DATE: SUBJECTIVE: Ms. Magana was extubated today. She is doing better. She is still weak. The patient is more responsive than yesterday. PHYSICAL EXAMINATION: GENERAL: She is currently alert. VITAL SIGNS: Stable, afebrile. HEENT: She is not icteric. NECK: Supple. CHEST: Crackles bilateral. HEART: S1 and S2. No S3, S4, or murmurs. ABDOMEN: Soft. IMPRESSION: 1. Respiratory failure, better, resolved off the ventilator from viral pneumonia COVID-19. 2. Diabetes mellitus. Continue diabetic controlled. 3. Leukocytosis due to steroid. We will follow. Jessenia Toribio MD [facility]/MODL /[id number]
[2019-09-02] MEDS: SIMVASTATIN 20 MG TAB PO SCH (17:02)
[2019-09-02] MEDS: ZINC SULFATE 220 MG CAP PO SCH (17:02)
[2019-09-02] MEDS: ASCORBIC ACID 500 MG TAB PO SCH ×2 (17:02→17:22)
[2019-09-02] MEDS: DEXAMETHASONE SOD PHOS 10 MG/1 ML VIAL IV SCH (17:22)
[2019-09-02] MEDS: EYE LUBRICANT OPTH OINT 3.5GM TUBE OP SCH (17:22)
[2019-09-02] MEDS: HYDRALAZINE HCL 20 MG/ML VIAL IV PRN (19:36)
[2019-09-02] MEDS: BISMUTH SUBSALICYLATE 262 MG/15 ML 8OZ BTL PO PRN (20:00)
[2019-09-02] MEDS ORDERED: SODIUM CHLORIDE 0.9% 500ML 500 ML IV ONE (20:00)
[2019-09-02] MEDS ORDERED: SODIUM CHLORIDE 0.9% 1000ML 1,000 ML ONE ×2 (20:14→21:59)
--- NOTE | 2019-09-02 20:15 | NUR ---
Dr. Krystal Lay rounding on unit, aware of pt's SBP in 180-190s after hydralazine given. Restarted pt's home BP meds for in the AM. Informed MD about pt's large amounts of diarrhea and frequent vomiting of bile. Ordered 500ml of NS for one time dose.
[2019-09-02] MEDS ORDERED: INSULIN GLARGINE 100 UNITS/ML VIAL SQ SCH (21:00)
[2019-09-03] VITALS (27 sets, daily range): BP systolic 108–178; BP diastolic 61–88
[2019-09-03] MEDS: ACETAMINOPHEN 325 MG TAB PO PRN ×2 (02:00→16:39)
[2019-09-03 05:59] LABS: BASOPHILS # (AUTO) 0.1 (0.0-0.1); BASOPHILS % 0.4 % (0.0-1.0); HEMATOCRIT 34.2 % (34.2-44.1); HEMOGLOBIN 11.2 g/dL (12.0-16.0); LYMPHOCYTES # (AUTO) 1.4 (1.0-3.2); LYMPHOCYTES % 6.2 % (18.0-39.1); MEAN CORPUSCULAR HEMOGLOBIN 27.9 pg (28-32); MEAN CORPUSCULAR HGB CONC 32.7 g/dL (31-35); MEAN CORPUSCULAR VOLUME 85.1 fL (81-99); MONOCYTES # (AUTO) 2.1 (0.2-0.8); MONOCYTES % 9.1 % (4.4-11.3); NEUTROPHILS # (AUTO) 18.1 (2.1-6.9); PLATELET COUNT 433 x10e3/uL (140-360); RED BLOOD COUNT 4.02 x10e6/uL (3.6-5.1); RED CELL DISTRIBUTION WIDTH 13.5 % (11.7-14.4)
[2019-09-03 06:30] LABS: ALANINE AMINOTRANSFERASE 35 IU/L (0-55); ALBUMIN 2.2 g/dL (3.5-5.0); ALBUMIN/GLOBULIN RATIO 0.6 (0.8-2.0); ALKALINE PHOSPHATASE 140 IU/L (40-150); BLOOD UREA NITROGEN 28 mg/dL (7-26); BUN/CREATININE RATIO 40 (6-25); CALCIUM 8.3 mg/dL (8.4-10.2); CARBON DIOXIDE 29 mmol/L (22-29); CHLORIDE 97 mmol/L (98-107); EST GLOMERULAR FILTRATION RATE > 60 ML/MIN (60-); GLUCOSE 230 mg/dL (74-118); SODIUM 131 mmol/L (136-145)
[2019-09-03] MEDS: PANTOPRAZOLE 40 MG 10ML VIAL IV SCH (08:03)
[2019-09-03] MEDS: SIMVASTATIN 20 MG TAB PO SCH (08:03)
[2019-09-03] MEDS: ZINC SULFATE 220 MG CAP PO SCH (08:03)
[2019-09-03] MEDS: ASCORBIC ACID 500 MG TAB PO SCH ×2 (08:03→16:39)
[2019-09-03] MEDS: ASPIRIN 81 MG ENTERIC COATED PO SCH (08:03)
[2019-09-03] MEDS: OLMESARTAN 20 MG TAB PO SCH (08:17)
[2019-09-03] MEDS: EYE LUBRICANT OPTH OINT 3.5GM TUBE OP SCH (08:18)
[2019-09-03] MEDS: ONDANSETRON HCL INJ 2MG/ML 2ML 2 MG/ML VIAL IV PRN ×3 (08:30→17:09)
[2019-09-03 08:48] LABS: LYMPHOCYTES % (MANUAL) 9 % (19-48); MONOCYTES % (MANUAL) 4 % (3.4-9.0); MYELOCYTES % (MANUAL) 1 % (0-0); NEUTROPHILS % (MANUAL) 86 % (40-74); PLATELET ESTIMATE SLIGHTLY INCREASED; PLATELET MORPHOLOGY COMMENT NORMAL; RBC MORPHOLOGY COMMENT NORMAL
[2019-09-03 08:49] LABS: PLATELET CLUMPS FEW
--- NOTE | 2019-09-03 08:54 | Progress Note ---
DATE: SUBJECTIVE: The patient was extubated yesterday. She is now on 6 L nasal cannula. She is saturating 97%. She still has decreased energy and lethargy. PHYSICAL EXAMINATION: VITAL SIGNS: The blood pressure is 169/73, saturation is 97% on 6 L. HEENT: Shows no facial swelling or erythema. CARDIAC: Reveals regular rate and rhythm with normal S1 and S2. LUNGS: Auscultation of lungs reveals rhonchorous breath sounds bilaterally. There is no wheezing. ABDOMEN: Soft and nontender. There is no rebound or guarding. EXTREMITIES: Shows no leg edema or calf tenderness. There is no cyanosis or clubbing. SKIN: Shows no rashes. NEUROLOGIC: Shows no focal abnormalities. The patient has diffuse weakness. LABORATORY DATA: White blood cell count is 22.4 and hemoglobin is 11.2. The platelet count is 433. The BUN to creatinine ratio is 28 to 0.7 and the sodium is 131. Other electrolytes are within normal limits. The albumin is 2.2. IMPRESSION: 1. Bilateral pneumonia and coronavirus disease 2019 infection. 2. Diabetes. 3. Leukocytosis. 4. Anemia. PLAN: 1. Continue insulin drip. 2. Complete dexamethasone. 3. Complete antibiotics. 4. Physical therapy. 5. Discontinue [place]. 6. LTAC evaluation. Antony Lay MD [facility]/MODL /[id number]
[2019-09-03 09:07] LABS: BILIRUBIN,URINE NEGATIVE (NEGATIVE); CLARITY,URINE CLEAR (CLEAR); COLOR,URINE YELLOW (YELLOW); KETONES,URINE NEGATIVE (NEGATIVE); LEUKOCYTE ESTERASE ,URINE NEGATIVE (NEGATIVE); NITRITE,URINE NEGATIVE (NEGATIVE); PROTEIN,URINE DIPSTICK NEGATIVE (NEGATIVE); URINE UROBILINOGEN 0.2 mg/dL (0.2 - 1)
[2019-09-03 09:11] LABS: ABG HCO3 30 mmol/L (22-26); ABG PCO2 39 mmHg (35-45); ABG PH 7.49 (7.35-7.45); ABG PO2 88 mmHg (80-105)
[2019-09-03 09:44] LABS: WBC,URINE (MAN) 0-5 /HPF (0-5)
[2019-09-03 09:45] LABS: BACTERIA,URINE RARE /HPF; EPITHELIAL CELLS,URINE RARE /LPF; RBC,URINE 21-50 /HPF (0-5)
[2019-09-03] MEDS: INSULIN REGULAR, HUMAN 3ML VL 100 UNIT in SODIUM CHLORIDE 0.9% 99 ML IV SCH ×2 (10:01)
[2019-09-03] MEDS: HYDRALAZINE HCL 20 MG/ML VIAL IV PRN ×2 (10:56→17:09)
--- NOTE | 2019-09-03 11:04 | NUR ---
ST NOTE: Order acknowledged for BSE on pt, pt extubated 09/02/19 at 1025 after being intubated for 6 days. Spoke with RN, pt to be evaluated on 09/04/19 following 48 hours post extubation as recommended in literature for reduced swelling and improved swallow function post extubation
--- NOTE | 2019-09-03 14:09 | NUR ---
ORDERS FOR LTAC EVAL PT COVID POSITIVE CM CALLED PT'S SON JEFFREY GUERRA AND EXPLAINED LTAC EVAL PH: [phone] CHOICE LETTER FOR [facility] CONSENT GIVEN CHOICE LETTTER ON CHART CLINICALS FAXED TO [facility] AT [phone] CONFIRMATION REC'D
[2019-09-03] MEDS ORDERED: RISPERIDONE 0.5 MG TAB PO SCH (16:30)
[2019-09-03] MEDS: DEXAMETHASONE SOD PHOS 10 MG/1 ML VIAL IV SCH (16:39)
--- NOTE | 2019-09-03 17:16 | NUR ---
Nutrition Intervention Note RD Recommendation(s) for Physician: -Recommend modifying formula to Vital AF 1.2 @ goal rate of 55 mL/hr to better meet estimated nutritional needs until bedside swallow screen can be completed (provides 1584 kcal, 99 g protein, and 1071 mL water) -If PO intake is feasible, recommend ADA diet and texture modification per speech therapy -Fluid management per MD Plan of Care: RD following, monitoring for tolerance and adequacy Nutrition reason for involvement: follow up RD Assessment 09/02: Follow up. Pt was extubated yesterday. Pts tube feeding is on hold since pt was having nausea per RN. Speech therapy bedside swallow evaluation is pending. Will continue to monitor. 08/29: Follow up. Pt intubated, sedated, and paralyzed. NGT in place, TF of Glucerna 1.5 infusing at 50 ml/hr this am. Pt currently in insulin drip. Chart reviewed. Current TF rec's remain appropriate. Will continue to monitor. (08/27/19) Pt is a 64 year old female admitted with pneumonia. Pt is COVID-19+ and is on a Venturi Mask. Pt had difficulty eating per MD note; therefore, an NG tube was placed and tube feedings were started. Unable to enter room due to droplet isolation precautions secondary to COVID-19. There are no previous weights in chart. Recommendations provided. Will continue to monitor Principal Problems/Diagnoses: pneumonia PMH: HTN, diabetes GI: LBM 09/01 Skin: intact Labs: 09/02: Na 131, BUN 28, Glu 230, Ca 8.3, AST 51 08/29: Na 140, K 3.9, BUN 34, Cr 0.76, Gluc 200, POC Gluc 213-243, Mg 2.4, Ca 7.7 (08/26) Na 138, K 4.0, BUN 22, Cr 0.71, Glu 92 Meds: insulin, zofran, vitamin C, sinc sulfate, protonix, dexmethasone, Ht: 68 inches Wt: 274 lbs (09/02) 210 lbs (08/26) Suspect weight error BMI: 41.7 kg/m2 IBW: 140 lbs Malnutrition Evaluation (08/27/19) Unable to assess. Will re-evaluate at follow-up as appropriate. Nutrition Prescription (Diet Order): Glucerna 1.5 @ 50 mL/hr (provides 1800 kcal, 99 g protein) Estimated Nutritional Needs: 9308-0370 calories/day (22-25 kcal/kg IBW) 95-127 g protein/day (1.5-2 g pro/kg IBW) Diet Adequacy: Meeting calorie needs, meeting protein needs with current tube feed order Tolerance: Tube feed is off at this time due to pt having nausea Diet Education Needs Assessment: Diet education not indicated, patient on temporary/transition diet. Nutrition Care Level: moderate Nutrition Diagnosis: Inadequate oral intake related to decreased ability to consume sufficient energy as evidenced by need for enteral nutrition. Goal: Patient will meet 75-100% of estimated needs by follow up Progress: progressing Interventions: -Composition, Rate, Route, Recommended Modifications, carbohydrate- modified diet, Collaboration with other providers Monitoring/Evaluation: -Total energy intake, Total protein intake, Formula/Solution, Weight change Signed: Blank Ratliff RD, LD
[2019-09-03] MEDS: MEROPENEM 1GM 100 ML IV SCH (18:30)
--- NOTE | 2019-09-03 18:59 | NUR ---
Pt weaned to 6L NC. Pt complaining of nausea and vomiting, prn zofran administered and tube feeds held for an hour (0 ml residual noted upon assessment). RN is repeatedly encouraging patient to promote independence. Orders given for physical therapy evaluation, bedside swallow and LTAC evaluation, urine specimen sent to lab as ordered. Pt complaining of chest pain to son, RN assessed pt and pt complaining of 8/[address] Krystal Lay immediately notified orders given for EKG, MD at bedside and viewed ekg results. Dr. Krystal Lay notified pt complaint of earache pain, pt medicated with prn Tylenol, no new orders. Pt had two loose stools during shift. Orders given by Dr. Krystal Lay to remove arterial line and transfer patient to [facility] covid unit. Left arterial line removed, dressing applied.
--- NOTE | 2019-09-03 19:18 | Progress Note ---
DATE: SUBJECTIVE: seems doing better, remains very weak. PHYSICAL EXAMINATION: GENERAL: Currently alert, off the event, on 6 L nasal cannula O2 saturation 97%. HEENT: Not icteric. NECK: Supple. CHEST: Few crackles. COR: S1, S2. No murmur. ABDOMEN: Soft. Obese. IMPRESSION: 1. Coronavirus disease-19 respiratory failure, extubated. 2. Diabetes mellitus. 3. Leukocytosis is getting worse probably from steroid. PLAN: To finish 10 days of dexamethasone. I am going to order procalcitonin level in time and put her on meropenem and then reassess for pneumonia. Agree with PT and OT. MD BAYRON Hitchcock/MODL /[id number]
[2019-09-03] MEDS ORDERED: INSULIN GLARGINE 100 UNITS/ML VIAL SQ SCH (21:00)
[2019-09-03] MEDS ORDERED: MEROPENEM 1GM 100 ML IV SCH (22:00)
[2019-09-04] VITALS (7 sets, daily range): BP systolic 120–140; BP diastolic 66–83
[2019-09-04] MEDS: MEROPENEM 1GM 100 ML IV SCH ×3 (02:16→17:48)
[2019-09-04] MEDS: ONDANSETRON HCL INJ 2MG/ML 2ML 2 MG/ML VIAL IV PRN ×2 (02:17→08:57)
[2019-09-04] MEDS: ACETAMINOPHEN 325 MG TAB PO PRN (02:17)
[2019-09-04 06:26] LABS: BASOPHILS # (AUTO) 0.1 (0.0-0.1); BASOPHILS % 0.3 % (0.0-1.0); EOSINOPHILS % 0.1 % (0.0-6.0); HEMATOCRIT 36.1 % (34.2-44.1); HEMOGLOBIN 11.7 g/dL (12.0-16.0); LYMPHOCYTES # (AUTO) 1.4 (1.0-3.2); MEAN CORPUSCULAR HEMOGLOBIN 27.7 pg (28-32); MEAN CORPUSCULAR HGB CONC 32.4 g/dL (31-35); MEAN CORPUSCULAR VOLUME 85.5 fL (81-99); MONOCYTES # (AUTO) 2.2 (0.2-0.8); MONOCYTES % 10.4 % (4.4-11.3); NEUTROPHILS # (AUTO) 16.3 (2.1-6.9); NEUTROPHILS % 79.3 % (38.7-80.0); PLATELET COUNT 462 x10e3/uL (140-360); RED BLOOD COUNT 4.22 x10e6/uL (3.6-5.1); RED CELL DISTRIBUTION WIDTH 13.7 % (11.7-14.4)
[2019-09-04 06:54] LABS: ALANINE AMINOTRANSFERASE 37 IU/L (0-55); ALBUMIN 2.5 g/dL (3.5-5.0); ALBUMIN/GLOBULIN RATIO 0.6 (0.8-2.0); ALKALINE PHOSPHATASE 132 IU/L (40-150); ANION GAP 13.9 mmol/L (8-16); BLOOD UREA NITROGEN 27 mg/dL (7-26); BUN/CREATININE RATIO 38 (6-25); CALCIUM 8.4 mg/dL (8.4-10.2); CARBON DIOXIDE 27 mmol/L (22-29); CHLORIDE 94 mmol/L (98-107); CREATININE, SERUM 0.71 mg/dL (0.57-1.11); EST GLOMERULAR FILTRATION RATE > 60 ML/MIN (60-); GLUCOSE 210 mg/dL (74-118); POTASSIUM 4.9 mmol/L (3.5-5.1); SODIUM 130 mmol/L (136-145)
[2019-09-04] MEDS: PANTOPRAZOLE 40 MG 10ML VIAL IV SCH (08:51)
[2019-09-04] MEDS: EYE LUBRICANT OPTH OINT 3.5GM TUBE OP SCH (08:51)
[2019-09-04] MEDS: ASPIRIN 81 MG ENTERIC COATED PO SCH (08:51)
[2019-09-04] MEDS: ASCORBIC ACID 500 MG TAB PO SCH ×2 (08:52→16:29)
[2019-09-04] MEDS: OLMESARTAN 20 MG TAB PO SCH (08:52)
[2019-09-04] MEDS: ZINC SULFATE 220 MG CAP PO SCH (08:52)
[2019-09-04] MEDS: SIMVASTATIN 20 MG TAB PO SCH (08:52)
[2019-09-04] MEDS ORDERED: LORAZEPAM INJ 2 MG/ML VIAL IV PRN (09:30)
[2019-09-04] MEDS: INSULIN REGULAR, HUMAN 3ML VL 100 UNIT in SODIUM CHLORIDE 0.9% 99 ML IV SCH ×2 (10:00)
--- NOTE | 2019-09-04 11:26 | NUR ---
Per Merline, LTAC was denied. [facility]ORNE Aquino will do P2P. Updated note and MAR faxed to Barbara at [phone].
[2019-09-04 11:27] LABS: LYMPHOCYTES % (MANUAL) 2 % (19-48); MONOCYTES % (MANUAL) 10 % (3.4-9.0); NEUTROPHILS % (MANUAL) 88 % (40-74)
[2019-09-04 11:28] LABS: PLATELET ESTIMATE SLIGHTLY INCREASED
[2019-09-04 11:29] LABS: PLATELET MORPHOLOGY COMMENT NORMAL; RBC MORPHOLOGY COMMENT NORMAL
--- NOTE | 2019-09-04 13:27 | Progress Note ---
DATE: Pulmonary Critical Care Progress Note SUBJECTIVE: The patient is out of the intensive care unit. Her oxygen is at 5 L. She has some confusion and complains of profound weakness. She was able to stand a little bit with physical therapy yesterday. PHYSICAL EXAMINATION: VITAL SIGNS: The patient is afebrile. The blood pressure is 122/66 and saturation is 100%. Pulse is 89. Respiratory rate is normal. HEENT: Shows no facial swelling or erythema. CARDIAC: Reveals regular rate and rhythm with normal S1 and S2. LUNGS: Auscultation of lungs reveals rhonchorous breath sounds bilaterally. There is no wheezing. ABDOMEN: Soft and nontender. There is no rebound or guarding. EXTREMITIES: There is no leg edema. NEUROLOGICAL: Shows profound weakness. LABORATORY DATA: White blood cell count is 20.6 and the hemoglobin is 11.7. The platelet count is 462. BUN to creatinine ratio is 27 to 0.71, and the sodium is 130. The blood sugars are 210 to 280. Albumin is 2.5. IMPRESSION: 1. Acute respiratory failure that is improving. 2. Myopathy of critical illness and profound weakness. 3. Diabetes. 4. Leukocytosis. 5. Anemia, unspecified. PLAN: 1. Intensive physical therapy. Physical Medicine and Rehabilitation has been consulted. 2. Hold all sedatives and pain medications, which could contribute to delirium. 3. Continue enteral feedings. The patient does have a speech evaluation pending. 4. Continue current antibiotics. 5. Continue insulin drip and attempt to wean the patient off insulin drip. 6. Continue Lovenox. 7. Discontinue Waddell as soon as feasible. Antony Lay MD [facility]/MODL /[id number]
--- NOTE | 2019-09-04 13:47 | Diagnostic Imaging Report ---
EXAMINATION: CHEST SINGLE (PORTABLE) INDICATION: Pneumonia COMPARISON: Chest radiograph 09/02/2019 FINDINGS: LINES/TUBES:Interval removal of endotracheal tube and enteric tube projects below the diaphragm. LUNGS:The lungs are moderately inflated. Bilateral lower lung opacities, slightly improved compared to multiple prior radiograph. PLEURA:Likely small left pleural effusion. No pneumothorax. MEDIASTINUM:The cardiomediastinal silhouette appears unchanged in size and shape. BONES/SOFT TISSUES:No acute osseous injury. ABDOMEN:No free air under the diaphragm. IMPRESSION: Slight improvement of bilateral lower lung opacities. Signed by: Marisa Hanley MD on 09/04/2019 1:44 PM
[2019-09-04] MEDS: ZOLPIDEM TARTRATE 5 MG TAB PO PRN (20:36)
[2019-09-04] MEDS: ALBUTEROL SULFATE HFA 8GM INHALATION AEROSOL INH PRN (20:36)
[2019-09-04] MEDS ORDERED: INSULIN GLARGINE 100 UNITS/ML VIAL SQ SCH (21:00)
[2019-09-05] VITALS (9 sets, daily range): BP systolic 129–147; BP diastolic 69–82
[2019-09-05] MEDS: ONDANSETRON HCL INJ 2MG/ML 2ML 2 MG/ML VIAL IV PRN (00:27)
--- NOTE | 2019-09-05 01:10 | NUR ---
PATIENT ASKED SEVERAL TIMES BY NURSE TECH IF SHE WANTED A BATH AND PT DECLINED.
[2019-09-05 05:41] LABS: BASOPHILS # (AUTO) 0.1 (0.0-0.1); BASOPHILS % 0.6 % (0.0-1.0); EOSINOPHILS # (AUTO) 0.3 (0.0-0.4); HEMATOCRIT 34.1 % (34.2-44.1); HEMOGLOBIN 10.9 g/dL (12.0-16.0); LYMPHOCYTES # (AUTO) 1.8 (1.0-3.2); LYMPHOCYTES % 11.2 % (18.0-39.1); MEAN CORPUSCULAR HEMOGLOBIN 27.7 pg (28-32); MEAN CORPUSCULAR VOLUME 86.5 fL (81-99); MONOCYTES # (AUTO) 1.9 (0.2-0.8); MONOCYTES % 11.7 % (4.4-11.3); NEUTROPHILS # (AUTO) 11.4 (2.1-6.9); NEUTROPHILS % 71.7 % (38.7-80.0); PLATELET COUNT 426 x10e3/uL (140-360); RED BLOOD COUNT 3.94 x10e6/uL (3.6-5.1)
[2019-09-05 06:01] LABS: ALANINE AMINOTRANSFERASE 39 IU/L (0-55); ALBUMIN 2.4 g/dL (3.5-5.0); ALBUMIN/GLOBULIN RATIO 0.7 (0.8-2.0); ALKALINE PHOSPHATASE 115 IU/L (40-150); ANION GAP 10.6 mmol/L (8-16); BLOOD UREA NITROGEN 24 mg/dL (7-26); BUN/CREATININE RATIO 34 (6-25); CALCIUM 7.9 mg/dL (8.4-10.2); CARBON DIOXIDE 29 mmol/L (22-29); CHLORIDE 96 mmol/L (98-107); CREATININE, SERUM 0.71 mg/dL (0.57-1.11); EST GLOMERULAR FILTRATION RATE > 60 ML/MIN (60-); GLUCOSE 150 mg/dL (74-118); POTASSIUM 4.6 mmol/L (3.5-5.1); SODIUM 131 mmol/L (136-145)
--- NOTE | 2019-09-05 06:45 | NUR ---
PATIENT ASKED FOR BED BATH, PATIENT EDUCATED THAT DAY SHIFT WOULD HAVE TO COMPLETE DUE TO BEING IN THE MIDDLE OF SHIFT CHANGE AND SHE DECLINED BATH 3 TIMES LAST NIGHT. OFFGOING TECH NOTIFIED ONCOMING TECH OF PATIENT'S WISH TO GET BED BATH.
[2019-09-05] MEDS: EYE LUBRICANT OPTH OINT 3.5GM TUBE OP SCH (08:49)
[2019-09-05] MEDS: MEROPENEM 1GM 100 ML IV SCH ×2 (08:49→17:31)
[2019-09-05] MEDS: PANTOPRAZOLE 40 MG 10ML VIAL IV SCH (08:49)
[2019-09-05] MEDS: ASPIRIN 81 MG ENTERIC COATED PO SCH (08:49)
[2019-09-05] MEDS: ZINC SULFATE 220 MG CAP PO SCH (08:50)
[2019-09-05] MEDS: OLMESARTAN 20 MG TAB PO SCH (08:50)
[2019-09-05] MEDS: ASCORBIC ACID 500 MG TAB PO SCH ×2 (08:50→17:31)
[2019-09-05] MEDS: SIMVASTATIN 20 MG TAB PO SCH (08:50)
--- NOTE | 2019-09-05 09:40 | NUR ---
Denial upheld after P2P. Will proceed with SNF placement.
--- NOTE | 2019-09-05 09:44 | NUR ---
FAXED CLINICALS TO [facility]
[2019-09-05] MEDS ORDERED: DEXTROSE 50% SYRINGE 50 ML IV PRN (09:45)
[2019-09-05] MEDS ORDERED: INSULIN LISPRO 100 UNIT/1 ML 3ML VIAL SQ SCH (11:30)
--- NOTE | 2019-09-05 12:32 | Progress Note ---
DATE: SUBJECTIVE: Ms. Craft is weak. She is off the vent. PHYSICAL EXAMINATION: GENERAL: Currently alert, awake. VITAL SIGNS: Stable, afebrile. HEENT: Not icteric. NECK: Supple. CHEST: Clear. HEART: S1 and S2. ABDOMEN: Soft. I was told early she was not hallucinating. IMPRESSION: 1. Status post Respiratory Failure. 2. COVID19. 3. Concern about , concern about sedation. We will discontinue steroid. 4. Diabetes. 5. Leukocytosis, probably from steroid. PT/OT. I am also going to stop the meropenem, I am concerned about the side effect of it. Discussed with medical team. We will follow. Jessenia Toribio MD [facility]/MODL /[id number]
[2019-09-05] MEDS: INSULIN LISPRO 100 UNIT/1 ML 3ML VIAL SQ SCH ×4 (16:30→21:08)
--- NOTE | 2019-09-05 18:32 | Progress Note ---
DATE: SUBJECTIVE: The patient still has some intermittent confusion. She is weak, but slightly more active than yesterday. The patient is still receiving enteral feedings. Her oxygen is down to 3 L. PHYSICAL EXAMINATION: VITAL SIGNS: The patient is afebrile. The blood pressure is 132/75 and the saturation is 97% on 3 L. HEENT: No facial swelling or erythema. CARDIAC: Regular rate and rhythm with normal S1, S2. LUNGS: Auscultation of lungs reveals decreased breath sounds at the bases. There is no wheezing. ABDOMEN: Soft, nontender. There is no rebound or guarding. EXTREMITIES: No leg edema or calf tenderness. There is no cyanosis or clubbing. SKIN: No rashes. NEUROLOGICAL: No focal abnormalities. LABORATORY DATA: White blood cell count is 15.8, hemoglobin is 10.9. The platelet count is 426. BUN to creatinine ratio is normal. Other electrolytes are within normal limits. RADIOGRAPHIC DATA: Chest x-ray shows some slight improvement in bilateral infiltrates. IMPRESSION: 1. Acute respiratory failure that is improving. 2. Diabetes. 3. Myopathy of critical illness. 4. Leukocytosis. 5. Anemia. PLAN: 1. Continue to decrease oxygen. 2. Continue enteral feedings. 3. Complete current antibiotics. 4. Continue insulin. 5. Out of bed as much as possible with intensive physical therapy. Antony Lay MD [facility]/MODL /[id number]
--- NOTE | 2019-09-05 18:50 | NUR ---
Report to CAMERON Grijalva
--- NOTE | 2019-09-05 20:23 | Progress Note ---
DATE: SUBJECTIVE: Ms. Magana is improving and getting stronger every day. She would benefit from PT/OT. There is no new complaint. PHYSICAL EXAMINATION: GENERAL: She is currently alert and oriented, does not seem to be in any acute distress. VITAL SIGNS: Stable, currently afebrile. HEENT: She is not icteric. NECK: Supple. CHEST: Few crackles. IMPRESSION: COVID-19 status post respiratory failure. Continue with PT/OT. Continue supportive care. Discussed with medical team. She may benefit from going to an LTAC or SNF for physical therapy. Discussed with the patient to continue with incentive spirometer. Jessenia Toribio MD [facility]/MODL /[id number]
[2019-09-05] MEDS ORDERED: INSULIN GLARGINE 100 UNITS/ML VIAL SQ SCH ×2 (21:00)
[2019-09-05] MEDS: ZOLPIDEM TARTRATE 5 MG TAB PO PRN (21:30)
[2019-09-05] MEDS: ACETAMINOPHEN 325 MG TAB PO PRN (21:30)
--- NOTE | 2019-09-05 23:47 | NUR ---
Patient found in bed with NGT in hand, stating, "I didn't pull it out." No bleeding noted, catheter intact. Spoke to Ankush Thomas NP and received orders to insert new NGT and confirm placement with abdominal x-ray.
[2019-09-06] VITALS (8 sets, daily range): BP systolic 107–145; BP diastolic 67–85
--- NOTE | 2019-09-06 00:44 | NUR ---
NGT inserted to left nare and secured with tape. Patient tolerated well. Waiting for x-ray at this time to verify placement.
[2019-09-06] MEDS: MEROPENEM 1GM 100 ML IV SCH ×3 (01:18→16:44)
--- NOTE | 2019-09-06 01:30 | Diagnostic Imaging Report ---
Exam: Abdominal film Clinical History: NG tube placement Comparison: Portable chest 09/04/2019 DISCUSSION: See impression. IMPRESSION: 1. Interval placement of enteric tube, with distal tip projecting at the stomach fundus. The staff physician below has personally reviewed this exam on the date of dictation. Signed by: Dr. Domo Zamora M.D. on 09/06/2019 1:27 AM
--- NOTE | 2019-09-06 01:50 | NUR ---
Called abdominal x-ray results to Ankush Thomas NP. Received orders to advance NGT further and repeat x-ray.
--- NOTE | 2019-09-06 02:53 | Diagnostic Imaging Report ---
Exam: Abdominal film Clinical History: NG tube repositioning Comparison: KUB 09/06/2019 DISCUSSION: See impression. IMPRESSION: 1. Exam limited by motion artifact. 2. Distal tip of the enteric tube is not clearly visualized, however, most of the tube projects in the stomach distal body The staff physician below has personally reviewed this exam on the date of dictation. Signed by: Dr. Domo Zamora M.D. on 09/06/2019 2:50 AM
--- NOTE | 2019-09-06 03:04 | NUR ---
Called repeat abdominal x-ray results to Ankush Thomas NP. Received orders to resume tube feeding.
[2019-09-06 06:58] LABS: BASOPHILS # (AUTO) 0.1 (0.0-0.1); BASOPHILS % 0.8 % (0.0-1.0); EOSINOPHILS # (AUTO) 0.2 (0.0-0.4); EOSINOPHILS % 1.4 % (0.0-6.0); HEMOGLOBIN 11.6 g/dL (12.0-16.0); LYMPHOCYTES # (AUTO) 1.8 (1.0-3.2); LYMPHOCYTES % 10.6 % (18.0-39.1); MEAN CORPUSCULAR HEMOGLOBIN 27.9 pg (28-32); MEAN CORPUSCULAR HGB CONC 31.4 g/dL (31-35); MEAN CORPUSCULAR VOLUME 88.9 fL (81-99); MONOCYTES # (AUTO) 1.9 (0.2-0.8); MONOCYTES % 11.1 % (4.4-11.3); NEUTROPHILS # (AUTO) 12.2 (2.1-6.9); NEUTROPHILS % 73.4 % (38.7-80.0); PLATELET COUNT 411 x10e3/uL (140-360); RED BLOOD COUNT 4.16 x10e6/uL (3.6-5.1); RED CELL DISTRIBUTION WIDTH 14.2 % (11.7-14.4)
[2019-09-06] MEDS: INSULIN LISPRO 100 UNIT/1 ML 3ML VIAL SQ SCH ×8 (07:30→20:49)
[2019-09-06 07:54] LABS: ALANINE AMINOTRANSFERASE 35 IU/L (0-55); ALBUMIN 2.7 g/dL (3.5-5.0); ALBUMIN/GLOBULIN RATIO 0.7 (0.8-2.0); ALKALINE PHOSPHATASE 123 IU/L (40-150); ANION GAP 13.7 mmol/L (8-16); BLOOD UREA NITROGEN 20 mg/dL (7-26); BUN/CREATININE RATIO 30 (6-25); CALCIUM 8.9 mg/dL (8.4-10.2); CARBON DIOXIDE 25 mmol/L (22-29); CHLORIDE 96 mmol/L (98-107); CREATININE, SERUM 0.66 mg/dL (0.57-1.11); EST GLOMERULAR FILTRATION RATE > 60 ML/MIN (60-); GLUCOSE 84 mg/dL (74-118); POTASSIUM 4.7 mmol/L (3.5-5.1); SODIUM 130 mmol/L (136-145)
[2019-09-06] MEDS: ZINC SULFATE 220 MG CAP PO SCH (09:13)
[2019-09-06] MEDS: SIMVASTATIN 20 MG TAB PO SCH (09:13)
[2019-09-06] MEDS: ASCORBIC ACID 500 MG TAB PO SCH ×2 (09:13→16:44)
[2019-09-06] MEDS: EYE LUBRICANT OPTH OINT 3.5GM TUBE OP SCH (09:13)
[2019-09-06] MEDS: OLMESARTAN 20 MG TAB PO SCH (09:13)
[2019-09-06] MEDS: ASPIRIN 81 MG ENTERIC COATED PO SCH (09:13)
[2019-09-06] MEDS: PANTOPRAZOLE 40 MG 10ML VIAL IV SCH (09:13)
--- NOTE | 2019-09-06 09:15 | NUR ---
patient doing well this morning. still has strong cough but using yonker for secretions. patient changed and positioned off her bottom to right side using wedges. called for update on mbs ordered. waiting for response at this time
--- NOTE | 2019-09-06 12:28 | Progress Note ---
DATE: SUBJECTIVE: Ms. Magana is improving. She is still weak. Encouraged her to do therapy. The plan for her to go to skilled because she needs medication assistant. PHYSICAL EXAMINATION: GENERAL: She is currently alert, oriented, does not seem to be in acute distress. VITAL SIGNS: Stable, afebrile. HEENT: She is not icteric. NECK: Supple. CHEST: Clear. ABDOMEN: Soft. IMPRESSION: Coronavirus disease 2019, status post respiratory failure; debility; diabetes mellitus; obesity. The patient continue with diabetic control. Discussed with Case Management for discharge to skilled care, where she can get physical therapy. We will follow. MD BAYRON Hitchcock/MODL /[id number]
--- NOTE | 2019-09-06 15:32 | NUR ---
CALLED [facility] PT IS STILL PENDING AUTH
--- NOTE | 2019-09-06 15:40 | Progress Note ---
DATE: SUBJECTIVE: The patient is treated with physical therapy, but still is very weak. She is not walking independently. She is scheduled to go for a modified barium swallow today. PHYSICAL EXAMINATION: VITAL SIGNS: The patient is now on 2 L nasal cannula and is saturating 96%. Her pulse is 94 and respiratory rate is 22. HEENT: Shows no facial swelling or erythema. CARDIAC: Reveals a regular rate and rhythm with normal S1 and S2. LUNGS: Auscultation of lungs reveals decreased breath sounds at the bases. There is no wheezing. ABDOMEN: Soft and nontender. There is no rebound or guarding. EXTREMITIES: Shows no leg edema or calf tenderness. There is no cyanosis or clubbing. SKIN: Shows no rashes. NEUROLOGICAL: Shows no focal abnormalities. LABORATORY DATA: White blood cell count is 16.6 and the hemoglobin is 11.6. The platelet count is 411. The BUN to creatinine ratio is 20 to 0.66. The sodium is 130. The albumin is 2.7. IMPRESSION: 1. Respiratory failure that is improving. 2. Myopathy of critical illness. 3. Diabetes. 4. Anemia. PLAN: 1. Continue enteral feedings. Await modified barium swallow. 2. Continue physical therapy. 3. Continue insulin as needed. Antony Lay MD [facility]/MODL /[id number]
[2019-09-06] MEDS: ACETAMINOPHEN 325 MG TAB PO PRN (16:44)
--- NOTE | 2019-09-06 17:00 | NUR ---
patient on room air doing well at this time. did go to 92% during physical therapy on room air but able to come up on room air to 96%.
[2019-09-06] MEDS ORDERED: SODIUM CHLORIDE 0.9% 250ML 250 ML ONE (17:12)
[2019-09-06] MEDS: INSULIN GLARGINE 100 UNITS/ML VIAL SQ SCH (20:49)
[2019-09-06] MEDS: ZOLPIDEM TARTRATE 5 MG TAB PO PRN (21:15)
--- NOTE | 2019-09-06 23:48 | NUR ---
Tube feeding rate at 50 mls/hr. Patient tolerating well.
[2019-09-07] VITALS (7 sets, daily range): BP systolic 99–165; BP diastolic 56–77
[2019-09-07] MEDS: MEROPENEM 1GM 100 ML IV SCH ×3 (01:05→16:09)
--- NOTE | 2019-09-07 02:33 | NUR ---
Patient reports feeling "winded" after being repositioned in bed. Placed patient on 2L NC. O2 93%. HOB in high tom's position. Suction and call light placed within reach. All safety measures in place. Will continue to monitor.
[2019-09-07] MEDS: HYDRALAZINE HCL 20 MG/ML VIAL IV PRN (05:33)
--- NOTE | 2019-09-07 06:56 | NUR ---
RECEIVED BEDSIDE SHIFT REPORT FROM OFF GOING NURSE. PATIENT IS RESTING IN BED. NO ACUTE DISTRESS NOTED. CALL LIGHT WITHIN REACH. BED IN THE LOWEST POSITION.
--- NOTE | 2019-09-07 07:01 | NUR ---
Handoff report given to oncoming nurse. Patient awake and sitting up in bed, no s/s of distress at this time. All safety measures in place.
[2019-09-07] MEDS: INSULIN LISPRO 100 UNIT/1 ML 3ML VIAL SQ SCH ×8 (08:30→21:00)
[2019-09-07] MEDS: PANTOPRAZOLE 40 MG 10ML VIAL IV SCH (08:46)
[2019-09-07] MEDS: ASPIRIN 81 MG ENTERIC COATED PO SCH (08:46)
[2019-09-07] MEDS: EYE LUBRICANT OPTH OINT 3.5GM TUBE OP SCH (08:46)
[2019-09-07] MEDS: ZINC SULFATE 220 MG CAP PO SCH (08:47)
[2019-09-07] MEDS: ASCORBIC ACID 500 MG TAB PO SCH ×2 (08:47→16:09)
[2019-09-07] MEDS: OLMESARTAN 20 MG TAB PO SCH (08:47)
[2019-09-07] MEDS: SIMVASTATIN 20 MG TAB PO SCH (08:47)
--- NOTE | 2019-09-07 11:02 | NUR ---
Spoke with ODALYS Jones with [facility] regarding status of referral. States they are still pending insurance auth.
[2019-09-07] MEDS: ACETAMINOPHEN 325 MG TAB PO PRN ×2 (13:27→20:55)
--- NOTE | 2019-09-07 13:52 | NUR ---
[facility] DISCHARGE INFORMATION PATIENT HAS BEEN ACCEPTED TO: [facility] at [address] [place] [address] ACCEPTING GRADES 1 THROUGH 5 TEACHER: Katya Amato ACCEPTING MD: Dr. Hall ROOM: [id number] NURSE CALL REPORT TO: [phone] IMM SIGNED AND OBTAINED (if applicable): THE FOLLOWING DOCUMENTS MUST ACCOMPANY PATIENT FOR TRANSFER: copy of chart, transfer ADAM DOS SANTOS COPIED CHART: RTF: completed and given to CAMERON Bhatia [id number] DNR: n/a PASRR was faxed to [phone]. Copy also placed in front of chart and in packet. Notified Kenia, CUT OFF TENDER GLASS of bed. Gave dc order. Continue current medications at SNF.
--- NOTE | 2019-09-07 14:22 | NUR ---
Nutrition Intervention Note RD Recommendation(s) for Physician: - Recommend Glucerna 1.5 @ goal rate of 45 mL/hr (provides 1620 kcal, 89 g protein, and 820 mL water) - Fluid management per MD Plan of Care: RD following, monitoring for tolerance and adequacy, tube feeding recommendation Nutrition reason for involvement: follow up RD Assessment 09/06: Follow up. Speech therapy evaluated pt and recommended pt remain NPO and continue NG tube feeding at this time. Per nursing note, pt is tolerating tube feeding at 50 mL/hr. Recommendations provided. Will continue to monitor. 09/02: Follow up. Pt was extubated yesterday. Pts tube feeding is on hold since pt was having nausea per RN. Speech therapy bedside swallow evaluation is pending. Will continue to monitor. 08/29: Follow up. Pt intubated, sedated, and paralyzed. NGT in place, TF of Glucerna 1.5 infusing at 50 ml/hr this am. Pt currently in insulin drip. Chart reviewed. Current TF rec's remain appropriate. Will continue to monitor. (08/27/19) Pt is a 64 year old female admitted with pneumonia. Pt is COVID-19+ and is on a Venturi Mask. Pt had difficulty eating per MD note; therefore, an NG tube was placed and tube feedings were started. Unable to enter room due to droplet isolation precautions secondary to COVID-19. There are no previous weights in chart. Recommendations provided. Will continue to monitor Principal Problems/Diagnoses: pneumonia PMH: HTN, diabetes GI: soft, non-tender, large abdomen, LBM 09/05 Skin: intact Labs: 09/06: Na 130, BUN 20, Glu 84, Ca 8.9, AST 46 09/02: Na 131, BUN 28, Glu 230, Ca 8.3, AST 51 08/29: Na 140, K 3.9, BUN 34, Cr 0.76, Gluc 200, POC Gluc 213-243, Mg 2.4, Ca 7.7 (08/26) Na 138, K 4.0, BUN 22, Cr 0.71, Glu 92 Meds: insulin, vitamin C, zinc sulfate, antibiotic, protonix, zofran Ht: 68 inches Wt: 245 lbs (09/06) 274 lbs (09/02) 210 lbs (08/26) Suspect weight error BMI: 37.3 kg/m2 IBW: 140 lbs Malnutrition Evaluation (08/27/19) Unable to assess. Will re-evaluate at follow-up as appropriate. Nutrition Prescription (Diet Order): Glucerna 1.5 @ 50 mL/hr (provides 1800 kcal, 99 g protein) Estimated Nutritional Needs: 3402-5355 calories/day (22-25 kcal/kg IBW) 95-127 g protein/day (1.5-2 g pro/kg IBW) Diet Adequacy: Meeting calorie needs, meeting protein needs with current tube feed order Tolerance: tolerating TF Diet Education Needs Assessment: Diet education not indicated, patient on temporary/transition diet. Nutrition Care Level: moderate Nutrition Diagnosis: Inadequate oral intake related to decreased ability to consume sufficient energy as evidenced by need for enteral nutrition. Goal: Patient will meet 75-100% of estimated needs by follow up Progress: progressing Interventions: -Composition, Rate, Route, Recommended Modifications Monitoring/Evaluation: -Total energy intake, Total protein intake, Formula/Solution, Weight change Signed: Blank Ratliff RD, LD
--- NOTE | 2019-09-07 15:23 | NUR ---
[facility] is now saying they cannot take pts with NGT. LORNE Aquino notified. DC order canceled.
--- NOTE | 2019-09-07 15:55 | Progress Note ---
DATE: SUBJECTIVE: Ms. Magana is slowly getting better. She is still extremely weak. She cannot lift up her legs. Discussed with her. PHYSICAL EXAMINATION: GENERAL: Currently alert and oriented, does not seem to be in acute distress. VITAL SIGNS: Stable, currently afebrile. HEENT: Anicteric. NECK: Supple. CHEST: Clear. HEART: S1, S2. No murmurs. IMPRESSION: 1. Coronavirus disease-19. 2. Debility. Continue as ordered. Discharge planning is in progress. MD BAYRON Hitchcock/MODL /[id number]
--- NOTE | 2019-09-07 16:15 | Progress Note ---
DATE: SUBJECTIVE: The patient is reporting less dyspnea. She is down to 2 L nasal cannula. She is standing with physical therapy. She went for a modified barium swallow. PHYSICAL EXAMINATION: VITAL SIGNS: The patient is afebrile. The blood pressure is 120/74, saturation is 96%, and the heart rate is 107. HEENT: Shows no facial swelling or erythema. CARDIAC: Reveals a regular rate and rhythm. Normal S1 and S2. LUNGS: Auscultation of lungs reveals rhonchorous breath sounds bilaterally. There is no wheezing. ABDOMEN: Soft and nontender. There is no rebound or guarding. EXTREMITIES: Shows no leg edema or calf tenderness. There is no cyanosis or clubbing. SKIN: Shows no rashes. NEUROLOGICAL: Shows no focal abnormalities. LABORATORY DATA: White blood cell count is 16.6 and hemoglobin is 11.6. The platelet count is 411. The BUN to creatinine ratio is 20 to 0.66 and the albumin is 2.7. The sodium is 130. IMPRESSION: 1. Improving respiratory failure. 2. Myopathy of critical illness. 3. Diabetes. 4. Anemia. PLAN: 1. Continue physical therapy. 2. Continue to follow recommendations of speech therapy. 3. Wean oxygen. 4. Continue insulin as needed. 5. Complete Decadron and antibiotics. Antony Lay MD [facility]/MODL /[id number]
--- NOTE | 2019-09-07 19:24 | NUR ---
BEDSIDE SHIFT REPORT GIVEN TO ONCOMING NURSE. PATIENT IS RESTING IN BED. NO ACUTE DISTRESS NOTED. CALL LIGHT WITHIN REACH. BED IN THE LOWEST POSITION.
[2019-09-07] MEDS: ZOLPIDEM TARTRATE 5 MG TAB PO PRN (20:55)
[2019-09-07] MEDS: INSULIN GLARGINE 100 UNITS/ML VIAL SQ SCH (21:00)
[2019-09-08] VITALS (7 sets, daily range): BP systolic 111–139; BP diastolic 59–84
[2019-09-08] MEDS: MEROPENEM 1GM 100 ML IV SCH ×3 (00:42→17:24)
[2019-09-08] MEDS: ACETAMINOPHEN 325 MG TAB PO PRN ×3 (02:55→21:28)
[2019-09-08 06:22] LABS: BASOPHILS # (AUTO) 0.1 (0.0-0.1); BASOPHILS % 0.4 % (0.0-1.0); EOSINOPHILS # (AUTO) 0.4 (0.0-0.4); HEMATOCRIT 30.3 % (34.2-44.1); HEMOGLOBIN 9.7 g/dL (12.0-16.0); LYMPHOCYTES # (AUTO) 1.4 (1.0-3.2); LYMPHOCYTES % 10.3 % (18.0-39.1); MEAN CORPUSCULAR HEMOGLOBIN 28.5 pg (28-32); MEAN CORPUSCULAR VOLUME 89.1 fL (81-99); MONOCYTES # (AUTO) 1.3 (0.2-0.8); MONOCYTES % 9.5 % (4.4-11.3); NEUTROPHILS # (AUTO) 10.3 (2.1-6.9); NEUTROPHILS % 75.8 % (38.7-80.0); PLATELET COUNT 303 x10e3/uL (140-360); RED CELL DISTRIBUTION WIDTH 14.5 % (11.7-14.4)
[2019-09-08 06:49] LABS: ALANINE AMINOTRANSFERASE 22 IU/L (0-55); ALBUMIN 2.2 g/dL (3.5-5.0); ALBUMIN/GLOBULIN RATIO 0.6 (0.8-2.0); ALKALINE PHOSPHATASE 101 IU/L (40-150); ANION GAP 8.7 mmol/L (8-16); BLOOD UREA NITROGEN 24 mg/dL (7-26); BUN/CREATININE RATIO 35 (6-25); CALCIUM 8.6 mg/dL (8.4-10.2); CARBON DIOXIDE 28 mmol/L (22-29); CHLORIDE 101 mmol/L (98-107); CREATININE, SERUM 0.68 mg/dL (0.57-1.11); EST GLOMERULAR FILTRATION RATE > 60 ML/MIN (60-); GLUCOSE 138 mg/dL (74-118); POTASSIUM 4.7 mmol/L (3.5-5.1); SODIUM 133 mmol/L (136-145)
[2019-09-08] MEDS ORDERED: SODIUM CHLORIDE 0.9% 250ML 250 ML ONE (08:25)
[2019-09-08] MEDS: ASCORBIC ACID 500 MG TAB PO SCH ×2 (08:58→17:24)
[2019-09-08] MEDS: SIMVASTATIN 20 MG TAB PO SCH (08:58)
[2019-09-08] MEDS: ZINC SULFATE 220 MG CAP PO SCH (08:58)
[2019-09-08] MEDS: ASPIRIN 81 MG ENTERIC COATED PO SCH (08:58)
[2019-09-08] MEDS: EYE LUBRICANT OPTH OINT 3.5GM TUBE OP SCH (08:58)
[2019-09-08] MEDS: PANTOPRAZOLE 40 MG 10ML VIAL IV SCH (08:58)
[2019-09-08] MEDS: INSULIN LISPRO 100 UNIT/1 ML 3ML VIAL SQ SCH ×8 (09:01→21:00)
[2019-09-08] MEDS: OLMESARTAN 20 MG TAB PO SCH (09:08)
--- NOTE | 2019-09-08 10:58 | NUR ---
SW CALLED PT'S SON JEFFREY-[phone] TO GIVE UPDATE ON PT'S TRANSFER TO SNF. SON SAID HE WAS TOLD [facility] WILL NOT TAKE ANYONE ON NG TUBE, ASKED IF THATS CORRECT. SW REVIEWED MEDICAL OFFICE CLERK NOTES AND VERIFIED IT. SON ASKED WHY PT WAS NOT ACCEPTED AT [facility], SON WAS TOLD IT WAS BECAUSE THE INSURANCE DENIED IT. SON VERBALIZED UNDERSTANDING.
--- NOTE | 2019-09-08 11:37 | NUR ---
SPOKE WITH TRACY NUNO NP REGARDING [facility] DECLINING PT DUE TO NGT. HE STATED HE WILL ASSESS AND EVALUATE NEED FOR NGT.
--- NOTE | 2019-09-08 12:55 | Progress Note ---
DATE: SUBJECTIVE: The patient is still requiring a feeding tube because of aspiration risk. Her oxygen is decreased to 2 L. She is still weak, but able to stand a little with physical therapy. PHYSICAL EXAMINATION: VITAL SIGNS: Blood pressure is 179/80 and the saturation is 97% on 2 L. HEENT: Shows no facial swelling or erythema. CARDIAC: Reveals regular rate and rhythm with normal S1 and S2. There are no murmurs rubs. LUNGS: Auscultation of lungs reveals crackles at the bases. There is no wheezing. ABDOMEN: Soft and nontender. There is no rebound or guarding. EXTREMITIES: Shows some leg edema. LABORATORY DATA: White blood cell count is 13.6 and the hemoglobin is 9.7. The platelet count is 303. BUN to creatinine ratio is normal. Other electrolytes are within normal limits. IMPRESSION: 1. Improving respiratory failure. 2. Myopathy of critical illness. 3. Diabetes. 4. Anemia. PLAN: 1. Continue physical therapy. 2. Continue to follow recommendations of speech therapy. 3. Wean oxygen. 4. Continue insulin as needed. Antony Lay MD [facility]/MODL /[id number]
--- NOTE | 2019-09-08 19:10 | NUR ---
RECEIVED REPORT FROM DAY NURSE. PATIENT IS RESTING IN THE BED. BED IS IN THE LOWEST POSITION AND CALL LIGHT IS WITHIN REACH. WILL CONTINUE TO MONITOR PATIENT.
[2019-09-08] MEDS: INSULIN GLARGINE 100 UNITS/ML VIAL SQ SCH (21:00)
[2019-09-08] MEDS: ZOLPIDEM TARTRATE 5 MG TAB PO PRN (22:47)
[2019-09-09] VITALS (7 sets, daily range): BP systolic 121–135; BP diastolic 68–85
[2019-09-09] MEDS: MEROPENEM 1GM 100 ML IV SCH ×3 (01:27→16:27)
[2019-09-09] MEDS: ACETAMINOPHEN 325 MG TAB PO PRN ×3 (03:28→18:26)
[2019-09-09 05:32] LABS: BASOPHILS # (AUTO) 0.1 (0.0-0.1); BASOPHILS % 0.6 % (0.0-1.0); EOSINOPHILS # (AUTO) 0.4 (0.0-0.4); EOSINOPHILS % 4.7 % (0.0-6.0); HEMATOCRIT 31.4 % (34.2-44.1); LYMPHOCYTES # (AUTO) 1.3 (1.0-3.2); LYMPHOCYTES % 14.7 % (18.0-39.1); MEAN CORPUSCULAR HEMOGLOBIN 27.9 pg (28-32); MEAN CORPUSCULAR HGB CONC 31.8 g/dL (31-35); MEAN CORPUSCULAR VOLUME 87.5 fL (81-99); MONOCYTES # (AUTO) 1.1 (0.2-0.8); MONOCYTES % 12.6 % (4.4-11.3); NEUTROPHILS % 66.1 % (38.7-80.0); PLATELET COUNT 329 x10e3/uL (140-360); RED BLOOD COUNT 3.59 x10e6/uL (3.6-5.1); RED CELL DISTRIBUTION WIDTH 14.6 % (11.7-14.4)
[2019-09-09 05:51] LABS: ANION GAP 11.7 mmol/L (8-16); BLOOD UREA NITROGEN 21 mg/dL (7-26); BUN/CREATININE RATIO 31 (6-25); CALCIUM 8.8 mg/dL (8.4-10.2); CARBON DIOXIDE 27 mmol/L (22-29); CHLORIDE 99 mmol/L (98-107); CREATININE, SERUM 0.68 mg/dL (0.57-1.11); EST GLOMERULAR FILTRATION RATE > 60 ML/MIN (60-); GLUCOSE 157 mg/dL (74-118); MAGNESIUM 2.3 MG/DL (1.3-2.1); PHOSPHORUS 3.2 MG/DL (2.3-4.7); POTASSIUM 4.7 mmol/L (3.5-5.1); SODIUM 133 mmol/L (136-145)
--- NOTE | 2019-09-09 07:09 | NUR ---
report given to day nurse. patient is resting in room. no signs of distress of noted.
[2019-09-09] MEDS: INSULIN LISPRO 100 UNIT/1 ML 3ML VIAL SQ SCH ×8 (08:00→21:05)
--- NOTE | 2019-09-09 08:56 | NUR ---
Met with Ankush Thomas MISSILE TECHNICIAN regarding NGT. Pt is having NMES by Speech Therapist. CM to follow up with Speech Therapist regarding progress, and expectations of getting NGT dc'd. Follow up on pt progress for continued need for SNF vs home with home health
[2019-09-09] MEDS: EYE LUBRICANT OPTH OINT 3.5GM TUBE OP SCH (09:00)
[2019-09-09] MEDS: ASPIRIN 81 MG ENTERIC COATED PO SCH (09:42)
[2019-09-09] MEDS: PANTOPRAZOLE 40 MG 10ML VIAL IV SCH (09:42)
[2019-09-09] MEDS: ASCORBIC ACID 500 MG TAB PO SCH ×2 (09:42→16:27)
[2019-09-09] MEDS: SIMVASTATIN 20 MG TAB PO SCH (09:42)
[2019-09-09] MEDS: OLMESARTAN 20 MG TAB PO SCH (09:42)
[2019-09-09] MEDS: ZINC SULFATE 220 MG CAP PO SCH (09:42)
--- NOTE | 2019-09-09 11:43 | Progress Note ---
DATE: SUBJECTIVE: The patient is still weak. The patient still has an NG tube. She has a Waddell in. PHYSICAL EXAMINATION: VITAL SIGNS: The patient is afebrile. The blood pressure is 121/68 and pulse is 85. The saturation is 95%. HEENT: No facial swelling or erythema. CARDIAC: Regular rate and rhythm with normal S1 and S2. LUNGS: Auscultation of the lungs shows decreased breath sounds at the bases. There is no wheezing. ABDOMEN: Soft, nontender. There is no rebound or guarding. EXTREMITIES: No leg edema or calf tenderness. There is no cyanosis or clubbing. SKIN: No rashes. NEUROLOGICAL: No focal abnormalities. IMPRESSION: 1. COVID-19 and viral pneumonia. 2. Diabetes. 3. Myopathy of critical illness. 4. Dysphagia and swallowing dysfunction. 5. Anemia. PLAN: 1. Continue physical therapy. 2. Continue speech therapy. 3. Wean oxygen. 4. Insulin as needed. Antony Lay MD [facility]/MODL /[id number]
--- NOTE | 2019-09-09 16:38 | NUR ---
PT OFF OF 02 >1HR SATS AT 97% DENIES ANY SOB
[2019-09-09] MEDS: INSULIN GLARGINE 100 UNITS/ML VIAL SQ SCH (21:05)
[2019-09-09] MEDS: ZOLPIDEM TARTRATE 5 MG TAB PO PRN (22:28)
[2019-09-10] VITALS (8 sets, daily range): BP systolic 116–140; BP diastolic 72–87
[2019-09-10] MEDS: ACETAMINOPHEN 325 MG TAB PO PRN ×3 (00:26→15:20)
[2019-09-10] MEDS: MEROPENEM 1GM 100 ML IV SCH ×3 (01:00→17:09)
[2019-09-10 04:50] LABS: BASOPHILS # (AUTO) 0.1 (0.0-0.1); BASOPHILS % 0.7 % (0.0-1.0); EOSINOPHILS # (AUTO) 0.4 (0.0-0.4); EOSINOPHILS % 5.2 % (0.0-6.0); HEMOGLOBIN 10.9 g/dL (12.0-16.0); LYMPHOCYTES # (AUTO) 1.5 (1.0-3.2); LYMPHOCYTES % 19.8 % (18.0-39.1); MEAN CORPUSCULAR HEMOGLOBIN 28.1 pg (28-32); MEAN CORPUSCULAR HGB CONC 32.1 g/dL (31-35); MEAN CORPUSCULAR VOLUME 87.6 fL (81-99); MONOCYTES # (AUTO) 1.2 (0.2-0.8); MONOCYTES % 16.5 % (4.4-11.3); NEUTROPHILS # (AUTO) 4.1 (2.1-6.9); NEUTROPHILS % 56.2 % (38.7-80.0); PLATELET COUNT 351 x10e3/uL (140-360); RED BLOOD COUNT 3.88 x10e6/uL (3.6-5.1); RED CELL DISTRIBUTION WIDTH 14.5 % (11.7-14.4)
[2019-09-10 05:14] LABS: ANION GAP 11.6 mmol/L (8-16); BLOOD UREA NITROGEN 21 mg/dL (7-26); BUN/CREATININE RATIO 30 (6-25); CALCIUM 9.3 mg/dL (8.4-10.2); CARBON DIOXIDE 29 mmol/L (22-29); CHLORIDE 98 mmol/L (98-107); EST GLOMERULAR FILTRATION RATE > 60 ML/MIN (60-); GLUCOSE 157 mg/dL (74-118); POTASSIUM 4.6 mmol/L (3.5-5.1); SODIUM 134 mmol/L (136-145)
[2019-09-10] MEDS: INSULIN LISPRO 100 UNIT/1 ML 3ML VIAL SQ SCH ×8 (07:30→20:26)
[2019-09-10] MEDS: ASPIRIN 81 MG ENTERIC COATED PO SCH (08:48)
[2019-09-10] MEDS: EYE LUBRICANT OPTH OINT 3.5GM TUBE OP SCH (08:48)
[2019-09-10] MEDS: PANTOPRAZOLE 40 MG 10ML VIAL IV SCH (08:48)
[2019-09-10] MEDS: SIMVASTATIN 20 MG TAB PO SCH (08:48)
[2019-09-10] MEDS: ZINC SULFATE 220 MG CAP PO SCH (08:48)
[2019-09-10] MEDS: ASCORBIC ACID 500 MG TAB PO SCH ×2 (08:48→17:09)
[2019-09-10] MEDS: OLMESARTAN 20 MG TAB PO SCH (08:48)
--- NOTE | 2019-09-10 09:16 | NUR ---
SPOKE WITH PT'S SON JEFFREY GUERRA WHO STATES HE CALLED [facility] CUSTOMER SERVICE NUMBER TO INQUIRE WHY HIS MOTHER WAS DENIED LTAC THE PERSON HE SPOKE WITH AT SAID THE CLINICALS [facility] REC'D DID NOT HAVE THE COVID CODE U07.1 IN IT MONICA MURPHY IS ASKING FOR AN EXPEDITED APPEAL; INFORMED JESSY MCMILLAN WITH [facility] SHE SENT DR DUFF THE EXPEDITED APPEAL FORM TUESDAY FOR SIGNATURE AND WILL FOLLOW UP WITH HIM TODAY TO GET IT BACK WILL PROCEED TO EXPEDITED APPEAL PT STILL WITH NG TUBE AND FEEDS
--- NOTE | 2019-09-10 11:40 | Diagnostic Imaging Report ---
PROCEDURE: X-RAY MODIFIED BARIUM SWALLOW COMPARISON: None. INDICATION: Aspiration Radiation Details: Fluoroscopy time: 1.7 minutes Cumulative dose: 7.1 mGy DISCUSSION: Fluoroscopic examination was performed in conjunction with speech pathology during swallowing a variety of thin and thick liquid consistencies. Provided images demonstrate laryngeal penetration and aspiration. CONCLUSION: Modified barium swallow demonstrating laryngeal penetration and aspiration. Please refer to the speech pathology report for further details. Signed by: Marisa Hanley MD on 09/10/2019 11:37 AM
--- NOTE | 2019-09-10 13:58 | Progress Note ---
DATE: SUBJECTIVE: Ms. Magana is doing well, but still very weak, cannot even lift up her legs from the bed, but overall doing well. PHYSICAL EXAMINATION: GENERAL: She is currently alert, oriented. VITAL SIGNS: Stable, afebrile. HEENT: She is not icteric. NECK: Supple. CHEST: Clear. HEART: S1, S2. No murmurs. ABDOMEN: Soft. IMPRESSION: The patient with extreme debility status post coronavirus disease-19, obesity. She still cannot swallow. At risk for recurrent aspiration. Continue PT. Continue OT. Agree with obtaining LTAC evaluation. We will follow as an outpatient. MD BAYRON Hitchcock/GARRY /[id number]
--- NOTE | 2019-09-10 17:54 | Progress Note ---
DATE: SUBJECTIVE: The patient is now off oxygen. She still requires an NG tube for feeding. She is working with physical therapy. PHYSICAL EXAMINATION: VITAL SIGNS: Blood pressure is 120/77, saturation is 95% on room air, and her pulse is 93. HEENT: Shows no facial swelling or erythema. CARDIAC: Reveals regular rate and rhythm with normal S1, S2. LUNGS: Auscultation of lungs reveals rhonchorous breath sounds bilaterally. There is no wheezing. ABDOMEN: Soft and nontender. There is no rebound or guarding. EXTREMITIES: Shows no leg edema or calf tenderness. There is no cyanosis or clubbing. SKIN: Shows no rashes. NEUROLOGICAL: Shows no focal abnormalities. LABORATORY DATA: White blood cell count is 7.3 and hemoglobin is 10.9. The platelet count is 351. BUN to creatinine ratio is normal. Other electrolytes are within normal limits. IMPRESSION: 1. COVID-19 and viral pneumonia. 2. Diabetes. 3. Myopathy of critical illness. 4. Dysphagia and swallowing dysfunction. 5. Anemia. PLAN: 1. Continue physical therapy. 2. Speech therapy. 3. Insulin as needed. Antony Lay MD [facility]/MODL /[id number]
--- NOTE | 2019-09-10 19:59 | NUR ---
Resumed care of patient. Patient awake and sitting up in bed, L NGT and tube feedings in place @ 50 mls/hr. Bed locked and in lowest position, side rails up, call light and suction placed within reach. All safety measures in place. Will continue to monitor.
[2019-09-10] MEDS: ZOLPIDEM TARTRATE 5 MG TAB PO PRN (21:12)
[2019-09-10] MEDS: INSULIN GLARGINE 100 UNITS/ML VIAL SQ SCH (21:12)
[2019-09-10] MEDS: BISMUTH SUBSALICYLATE 262 MG/15 ML 8OZ BTL PO PRN (22:51)
[2019-09-11] VITALS (8 sets, daily range): BP systolic 110–138; BP diastolic 70–84
[2019-09-11] MEDS: MEROPENEM 1GM 100 ML IV SCH ×3 (01:40→17:09)
[2019-09-11] MEDS: ACETAMINOPHEN 325 MG TAB PO PRN ×3 (03:56→22:29)
[2019-09-11] MEDS: PANTOPRAZOLE 40 MG 10ML VIAL IV SCH (08:26)
[2019-09-11] MEDS: ASCORBIC ACID 500 MG TAB PO SCH ×2 (08:27→17:09)
[2019-09-11] MEDS: ZINC SULFATE 220 MG CAP PO SCH (08:27)
[2019-09-11] MEDS: EYE LUBRICANT OPTH OINT 3.5GM TUBE OP SCH (08:27)
[2019-09-11] MEDS: ASPIRIN 81 MG ENTERIC COATED PO SCH (08:27)
[2019-09-11] MEDS: SIMVASTATIN 20 MG TAB PO SCH (08:27)
[2019-09-11] MEDS: INSULIN LISPRO 100 UNIT/1 ML 3ML VIAL SQ SCH ×8 (08:36→21:00)
[2019-09-11] MEDS: OLMESARTAN 20 MG TAB PO SCH (08:38)
--- NOTE | 2019-09-11 09:38 | NUR ---
SPOKE WITH ASIYA AT [facility] WHO STATES THAT EXPEDITED APPEAL FORM HAS NOT YET BEEN SIGNED BY DR OMEGA DUFF ROUNDING THIS MORNING AND SIGNED EXPEDITED APPEAL LETTER I NOTIFIED ASIYA AND FAXED TO HER AT [phone]; CONFIRMATION REC'D INS HAS UP TO 72 HRS FOR EXPEDITED APPEAL
--- NOTE | 2019-09-11 14:29 | Progress Note ---
DATE: SUBJECTIVE: The patient is afebrile. She is saturating wound well on 2 L. She is receiving stimulation therapy with speech therapy. PHYSICAL EXAMINATION: VITAL SIGNS: The blood pressure is 110/71 and pulse is 72. Saturation is 99%. HEENT: Shows no facial swelling or erythema. CARDIAC: Reveals regular rate and rhythm with normal S1 and S2. LUNGS: Auscultation of lungs reveals clear breath sounds bilaterally. There is no wheezing. ABDOMEN: Soft and nontender. There is no rebound or guarding. EXTREMITIES: Shows no leg edema or calf tenderness. There is no cyanosis or clubbing. SKIN: Shows no rashes. NEUROLOGICAL: Shows diffuse weakness. LABORATORY DATA: White blood cell count 7.33 and the hemoglobin is 10.9. The platelet count is 351. BUN to creatinine ratio is normal. The other electrolytes are within normal limits. IMPRESSION: 1. COVID-19 and viral pneumonia. 2. Diabetes. 3. Dysphagia and swallowing dysfunction. 4. Myopathy of critical illness. PLAN: 1. Continue speech therapy. 2. Continue physical therapy. 3. Insulin as needed. 4. Arrange for disposition. Antony Lay MD LM/MODL /[id number]
--- NOTE | 2019-09-11 17:35 | Progress Note ---
DATE: SUBJECTIVE: The patient is seen and evaluated. Available labs and notes reviewed. REVIEW OF SYSTEMS: The patient states that she is doing better. Currently, not on any supplemental oxygen during my visit, but the patient is on 2 L of oxygen supposedly and saturation at 98% to 99%. PHYSICAL EXAMINATION: VITAL SIGNS: Temperature 97.7, pulse 92, respirations 17, and blood pressure 110/71. GENERAL: Alert and oriented, on nasogastric tube, currently off oxygen supplement. She usually gets 2 L of oxygen, saturating about 98%. CV: S1 and S2. CHEST: Equal expansion. Decreased breath sounds. No acute distress. ABDOMEN: Soft and nontender. HEENT: Moist. No pallor. No JVD. EXTREMITIES: Weak. MEDICATIONS: From ID point of view, the patient is on vitamin C, Merrem, and zinc sulfate. LABORATORY STUDIES: White count 7.33, hemoglobin 10.9, and platelet 351. Sodium 134, potassium 4.6, and creatinine 0.7. Coronavirus PCR 09/04/2019, detected. Hepatitis panel negative. MICROBIOLOGY: No new microbiology studies available. IMAGING: No new imaging available. ASSESSMENT AND PLAN: 1. COVID-19 positive. 2. Respiratory failure, resolved. 3. Dysphagia. 4. Debility. 5. Diabetes. 6. Hyperlipidemia. 7. The patient remains on Merrem. LTAC appeal in progress. The patient needs aggressive PT and OT. Please refer to chart for more information. Discussed with Dr. Toribio in details. Dictated by Wolf Hudson PA-C (Al) Jessenia Toribio MD /MODL /[id number]
[2019-09-11] MEDS: INSULIN GLARGINE 100 UNITS/ML VIAL SQ SCH (22:29)
[2019-09-12] VITALS (8 sets, daily range): BP systolic 120–173; BP diastolic 69–92
[2019-09-12] MEDS: MEROPENEM 1GM 100 ML IV SCH ×3 (01:05→18:00)
[2019-09-12] MEDS: ACETAMINOPHEN 325 MG TAB PO PRN (05:01)
[2019-09-12 05:56] LABS: BASOPHILS # (AUTO) 0.1 (0.0-0.1); BASOPHILS % 1.1 % (0.0-1.0); EOSINOPHILS # (AUTO) 0.4 (0.0-0.4); EOSINOPHILS % 6.2 % (0.0-6.0); HEMOGLOBIN 11.2 g/dL (12.0-16.0); LYMPHOCYTES # (AUTO) 1.6 (1.0-3.2); LYMPHOCYTES % 22.6 % (18.0-39.1); MEAN CORPUSCULAR HEMOGLOBIN 28.3 pg (28-32); MEAN CORPUSCULAR HGB CONC 31.1 g/dL (31-35); MEAN CORPUSCULAR VOLUME 90.9 fL (81-99); MONOCYTES # (AUTO) 1.1 (0.2-0.8); NEUTROPHILS # (AUTO) 3.7 (2.1-6.9); NEUTROPHILS % 51.7 % (38.7-80.0); PLATELET COUNT 297 x10e3/uL (140-360); RED BLOOD COUNT 3.96 x10e6/uL (3.6-5.1); RED CELL DISTRIBUTION WIDTH 14.5 % (11.7-14.4)
[2019-09-12 06:10] LABS: ALANINE AMINOTRANSFERASE 25 IU/L (0-55); ALBUMIN 2.7 g/dL (3.5-5.0); ALBUMIN/GLOBULIN RATIO 0.6 (0.8-2.0); ALKALINE PHOSPHATASE 102 IU/L (40-150); ANION GAP 12.6 mmol/L (8-16); BLOOD UREA NITROGEN 21 mg/dL (7-26); BUN/CREATININE RATIO 32 (6-25); CALCIUM 9.4 mg/dL (8.4-10.2); CARBON DIOXIDE 25 mmol/L (22-29); CHLORIDE 102 mmol/L (98-107); CREATININE, SERUM 0.66 mg/dL (0.57-1.11); EST GLOMERULAR FILTRATION RATE > 60 ML/MIN (60-); GLUCOSE 142 mg/dL (74-118); POTASSIUM 4.6 mmol/L (3.5-5.1); SODIUM 135 mmol/L (136-145)
[2019-09-12] MEDS: INSULIN LISPRO 100 UNIT/1 ML 3ML VIAL SQ SCH ×8 (07:30→20:41)
[2019-09-12] MEDS: EYE LUBRICANT OPTH OINT 3.5GM TUBE OP SCH (08:20)
[2019-09-12] MEDS: PANTOPRAZOLE 40 MG 10ML VIAL IV SCH (08:20)
[2019-09-12] MEDS: ASPIRIN 81 MG ENTERIC COATED PO SCH (08:21)
[2019-09-12] MEDS: ASCORBIC ACID 500 MG TAB PO SCH ×2 (08:21→17:00)
[2019-09-12] MEDS: OLMESARTAN 20 MG TAB PO SCH (08:21)
[2019-09-12] MEDS: ZINC SULFATE 220 MG CAP PO SCH (08:21)
[2019-09-12] MEDS: SIMVASTATIN 20 MG TAB PO SCH (08:21)
[2019-09-12] MEDS ORDERED: ZINC OXIDE 30 GM TUBE TOP PRN (11:30)
--- NOTE | 2019-09-12 12:53 | Progress Note ---
DATE: SUBJECTIVE: The patient is seen and evaluated. Available labs and notes reviewed. Discussed with Dr. Toribio in details. Please refer to chart for more information. REVIEW OF SYSTEMS: Still with diarrhea, which I believe is secondary to feeding tube that she receives. Otherwise, she feels better. No significant change in shortness of breath as far as worse. I actually talked to her about her as well, as she was acquiring about him. No new complaints. MEDICATIONS: Medication list is reviewed. As far as Infectious Disease point of view, the patient is on vitamin C, Merrem, and zinc sulphate. LABORATORY STUDIES: White count of 7.08, hemoglobin 11.2, and platelet 297. Sodium 135, potassium 4.6, and creatinine 0.66. Serology: Coronavirus PCR detected on 09/04/2019. MICROBIOLOGY: No new microbiology studies available. RADIOLOGY STUDIES: No new radiology studies available. PHYSICAL EXAMINATION: VITAL SIGNS: Temperature 98.5, pulse 78, respirations 20, and blood pressure 137/79, and O2 saturation on room air. The patient has been documented on room air since 08/15/2019 at 9:54 in the morning. GENERAL: Alert and oriented, no acute distress. CV: S1-S2. CHEST: Equal expansion. Decreased breath sounds. No acute distress. ABDOMEN: Soft. Nontender. No distention. HEENT: Moist. No pallor. No JVD. With nasogastric tube. EXTREMITIES: Weak with trace edema. ASSESSMENT AND PLAN: 1. Coronavirus disease-19, last recheck was positive as mentioned above. 2. Superimposed bacterial pneumonia-status post antibiotics. 3. Dysphagia-remains with nasogastric tube with only ice chips and receives speech evaluation. 4. Debility. 5. Diabetes. 6. Hyperlipidemia. Continue with antibiotic at this point. Pending transfer to another facility for continuation of her medical care. Discussed with Case Management. Discussed with the patient. Discussed with Dr. Toribio. Please refer to chart for more information. Overall, the patient seems to be doing better. Dictated by Wolf Hudson PA-C (Al) Jessenia Toribio MD /MODL /[id number]
--- NOTE | 2019-09-12 15:39 | NUR ---
Nutrition Intervention Note RD Recommendation(s) for Physician: - Recommend Glucerna 1.5 @ goal rate of 45 mL/hr (provides 1620 kcal, 89 g protein, and 820 mL water) - Fluid management per MD Plan of Care: RD following, monitoring for tolerance and adequacy, tube feeding recommendation Nutrition reason for involvement: follow up RD Assessment 09/11: Follow up. Attempted to call pt over the phone, but she did not answer. Pt continues to receive Glucerna 1.5 tube feeding. Speech therapy note indicates pts dysphagia has not improved enough for PO intake at this time. Current recommendations remain appropriate. It is noted that pt has been having diarrhea per MD note. Will continue to monitor. 09/06: Follow up. Speech therapy evaluated pt and recommended pt remain NPO and continue NG tube feeding at this time. Per nursing note, pt is tolerating tube feeding at 50 mL/hr. Recommendations provided. Will continue to monitor. 09/02: Follow up. Pt was extubated yesterday. Pts tube feeding is on hold since pt was having nausea per RN. Speech therapy bedside swallow evaluation is pending. Will continue to monitor. 08/29: Follow up. Pt intubated, sedated, and paralyzed. NGT in place, TF of Glucerna 1.5 infusing at 50 ml/hr this am. Pt currently in insulin drip. Chart reviewed. Current TF rec's remain appropriate. Will continue to monitor. (08/27/19) Pt is a 64 year old female admitted with pneumonia. Pt is COVID-19+ and is on a Venturi Mask. Pt had difficulty eating per MD note; therefore, an NG tube was placed and tube feedings were started. Unable to enter room due to droplet isolation precautions secondary to COVID-19. There are no previous weights in chart. Recommendations provided. Will continue to monitor Principal Problems/Diagnoses: pneumonia PMH: HTN, diabetes GI: soft, non-tender, large abdomen, LBM 09/11 diarrhea per MD note Skin: intact Labs: 09/11: Na 135, BUN 21, Glu Ca 9.4, Glu 142 09/06: Na 130, BUN 20, Glu 84, Ca 8.9, AST 46 09/02: Na 131, BUN 28, Glu 230, Ca 8.3, AST 51 08/29: Na 140, K 3.9, BUN 34, Cr 0.76, Gluc 200, POC Gluc 213-243, Mg 2.4, Ca 7.7 (08/26) Na 138, K 4.0, BUN 22, Cr 0.71, Glu 92 Meds: vitamin C, zinc sulfate, protonix, antibiotic, insulin, hydralazine, zofran Ht: 68 inches Wt: 245 lbs (09/06) 274 lbs (09/02) 210 lbs (08/26) Suspect weight error BMI: 37.3 kg/m2 IBW: 140 lbs Malnutrition Evaluation (08/27/19) Unable to assess. Will re-evaluate at follow-up as appropriate. Nutrition Prescription (Diet Order): Glucerna 1.5 @ 50 mL/hr (provides 1800 kcal, 99 g protein) Estimated Nutritional Needs: 0400-1232 calories/day (22-25 kcal/kg IBW) 95-127 g protein/day (1.5-2 g pro/kg IBW) Diet Adequacy: Meeting calorie needs, meeting protein needs Tolerance: tolerating TF Diet Education Needs Assessment: Diet education not indicated, patient on temporary/transition diet. Nutrition Care Level: moderate Nutrition Diagnosis: Inadequate oral intake related to decreased ability to consume sufficient energy as evidenced by need for enteral nutrition. Goal: Patient will meet 75-100% of estimated needs by follow up Progress: goal met Interventions: -Composition, Rate, Route, Recommended Modifications Monitoring/Evaluation: -Total energy intake, Total protein intake, Formula/Solution, Weight change Signed: Blank Ratliff RD, LD
--- NOTE | 2019-09-12 17:48 | NUR ---
PATIENT'S NGT TO LEFT NARE IS CLOGGED, NOT PATENT. NGT REMOVED PER PROTOCOL. INSERTION OF NEW NGT ATTEMPTED WITH LUBRICANT, HOB ELEVATED TO 90 DEGREE ANGLE. PATIENT SCREAMED, "TAKE IT OUT! TAKE IT OUT! IT HURTS!" NGT REMOVED FROM RIGHT NARE ALTHOUGH ONLY PARTIALLY INSERTED. PATIENT CRIED AND STATED, "I CANT DO IT AND I DONT WANT TO BE PUT TO SLEEP AND HAVE ANOTHER SURGERY JUST TO HAVE FOOD THROUGH A TUBE IN MY STOMACH." PATIENT CALLED HER SON. BUSINESS PROCESS ASSOCIATE, CASTILLO Curiel, NOTIFIED THAT PRIOR NGT WAS CLOGGED AND PATIENT'S REFUSAL FOR RE-INSERTION OF NEW NGT. CASTILLO STATED THAT IT IS OKAY TO LEAVE NGT OUT FOR TONIGHT.
--- NOTE | 2019-09-12 18:29 | Progress Note ---
DATE: SUBJECTIVE: The patient still requires an NG tube. She is scheduled to be re-evaluated by speech pathology tomorrow. She has no fever. She has less cough. She is on room air. She is still weak and is standing with physical therapy, but not walking independently. PHYSICAL EXAMINATION: VITAL SIGNS: Blood pressure is 173/90, saturation is 100% and the pulse is 58. HEENT: Shows no facial swelling or erythema. CARDIAC: Reveals regular rate and rhythm with normal S1, S2. LUNGS: Auscultation of lungs reveals clear breath sounds bilaterally. There is no wheezing. ABDOMEN: Soft and nontender. There is no rebound or guarding. EXTREMITIES: Shows no leg edema or calf tenderness. There is no cyanosis or clubbing. SKIN: Shows no rashes. LABORATORY DATA: BUN to creatinine ratio is normal. Other electrolytes within normal limits. CBC is normal. IMPRESSION: 1. COVID-19 and viral pneumonia. 2. Myopathy of critical illness. 3. Dysphagia and swallowing dysfunction. 4. Diabetes. PLAN: 1. Continue speech therapy. 2. Continue physical therapy. 3. Insulin as needed. 4. Continue enteral feedings. Antony Lay MD [facility]/MODL /[id number]
--- NOTE | 2019-09-12 19:33 | NUR ---
received report from day shift nurse patient has no NGT tube at this time.
[2019-09-12] MEDS: INSULIN GLARGINE 100 UNITS/ML VIAL SQ SCH (20:41)
--- NOTE | 2019-09-12 23:45 | NUR ---
Received report from night RN. pt is alert and oriented x3. pt npo x ice chips. o2 on per high flow n/c. respirations are even and unlabored. tele #[id number] on. rt midline intact and patent. left midline intact and patent. pt to have mds swallow eval by speech /. Waddell to gravity draining clear marvin urine.call light within reach. Bed locked in low position.
[2019-09-13] VITALS (8 sets, daily range): BP systolic 107–143; BP diastolic 61–84
[2019-09-13] MEDS: MEROPENEM 1GM 100 ML IV SCH ×3 (01:38→16:30)
[2019-09-13] MEDS: ALBUTEROL SULFATE HFA 8GM INHALATION AEROSOL INH PRN (02:31)
[2019-09-13 05:39] LABS: ALANINE AMINOTRANSFERASE 25 IU/L (0-55); ALBUMIN 2.7 g/dL (3.5-5.0); ALBUMIN/GLOBULIN RATIO 0.7 (0.8-2.0); ALKALINE PHOSPHATASE 96 IU/L (40-150); ANION GAP 14.3 mmol/L (8-16); BLOOD UREA NITROGEN 21 mg/dL (7-26); BUN/CREATININE RATIO 31 (6-25); CALCIUM 8.8 mg/dL (8.4-10.2); CARBON DIOXIDE 26 mmol/L (22-29); CHLORIDE 100 mmol/L (98-107); CREATININE, SERUM 0.67 mg/dL (0.57-1.11); EST GLOMERULAR FILTRATION RATE > 60 ML/MIN (60-); GLUCOSE 107 mg/dL (74-118); POTASSIUM 4.3 mmol/L (3.5-5.1); SODIUM 136 mmol/L (136-145)
[2019-09-13 05:42] LABS: BASOPHILS % 0.6 % (0.0-1.0); EOSINOPHILS # (AUTO) 0.4 (0.0-0.4); EOSINOPHILS % 5.5 % (0.0-6.0); HEMATOCRIT 32.7 % (34.2-44.1); HEMOGLOBIN 10.5 g/dL (12.0-16.0); LYMPHOCYTES # (AUTO) 1.7 (1.0-3.2); LYMPHOCYTES % 24.4 % (18.0-39.1); MEAN CORPUSCULAR HEMOGLOBIN 27.7 pg (28-32); MEAN CORPUSCULAR HGB CONC 32.1 g/dL (31-35); MEAN CORPUSCULAR VOLUME 86.3 fL (81-99); MONOCYTES # (AUTO) 1.1 (0.2-0.8); MONOCYTES % 15.8 % (4.4-11.3); NEUTROPHILS # (AUTO) 3.6 (2.1-6.9); PLATELET COUNT 301 x10e3/uL (140-360); RED BLOOD COUNT 3.79 x10e6/uL (3.6-5.1); RED CELL DISTRIBUTION WIDTH 14.6 % (11.7-14.4)
[2019-09-13] MEDS: INSULIN LISPRO 100 UNIT/1 ML 3ML VIAL SQ SCH ×8 (07:30→21:00)
[2019-09-13] MEDS: PANTOPRAZOLE 40 MG 10ML VIAL IV SCH (08:35)
[2019-09-13] MEDS: EYE LUBRICANT OPTH OINT 3.5GM TUBE OP SCH (08:35)
[2019-09-13] MEDS: ZINC SULFATE 220 MG CAP PO SCH (09:00)
[2019-09-13] MEDS: SIMVASTATIN 20 MG TAB PO SCH (09:00)
[2019-09-13] MEDS: OLMESARTAN 20 MG TAB PO SCH (09:00)
[2019-09-13] MEDS: ASPIRIN 81 MG ENTERIC COATED PO SCH (09:00)
[2019-09-13] MEDS: ASCORBIC ACID 500 MG TAB PO SCH ×2 (09:00→16:30)
[2019-09-13] MEDS ORDERED: D5NS/KCL 20MEQ 1,000 ML IV SCH (11:00)
[2019-09-13] MEDS: BENZONATATE 100 MG CAP PO PRN ×2 (11:25→22:37)
[2019-09-13] MEDS: ACETAMINOPHEN 325 MG TAB PO PRN (11:26)
--- NOTE | 2019-09-13 12:13 | NUR ---
Non-working right upper midline and left upper midline removed due to leaking. Catheter tips intact. No bleeding noted.
--- NOTE | 2019-09-13 12:13 | Progress Note ---
DATE: SUBJECTIVE: The patient is seen and evaluated. Available labs and notes reviewed. Discussed with the attending team. Discussed with the nurse and the patient. Nasogastric tube out by accident. Remains at room air and switching with room air and 2 L of O2 nasal cannula, and saturating at 97% to 100%. PHYSICAL EXAMINATION: VITAL SIGNS: Temperature 97.9, pulse 85, respiration 19, and blood pressure 143/61. GENERAL: Alert and oriented. No acute distress. Switching between 2 L of nasal cannula and room air. Saturation is on the high 90s. Clinically, no acute distress. CV: S1 and S2. CHEST: Equal expansion. Decreased breath sounds. No acute distress. ABDOMEN: Soft and nontender. No distention. HEENT: Moist. No pallor. No JVD. EXTREMITIES: No cyanosis or clubbing. MEDICATIONS: The patient is on meropenem, vitamin C, and zinc sulfate. LABORATORY STUDIES: White count of 6.92, hemoglobin 10.5, and platelet 301. Sodium 136, potassium 4.3, and creatinine 0.67. Coronavirus PCR detected last time on 09/03. It was also positive on 08/20. IMAGING: No new radiology studies available. ASSESSMENT AND PLAN: 1. COVID-19. 2. Dysphagia. 3. Possible superimposed bacterial infection, status post antibiotics. 4. Debility. 5. Diabetes. 6. Hyperlipidemia. 7. Continue with meropenem at this time. The patient to get MBS. The patient agreed to PEG tube if failed MBS. Continue to monitor the patient clinically and follow with the labs. The patient need aggressive PT/OT and workup on her dysphagia. Please refer to chart for more information. Dictated by Wolf Hudson PA-C (Al) Jessenia Toribio MD /MODL /[id number]
--- NOTE | 2019-09-13 14:09 | NUR ---
PT PASSED SWALLOW EVAL TODAY NG TUBE OUT JESSY MCMILLAN NOTIFIED AND EXPEDITED APPEAL FOR LTAC STOPPED CM CALLED SON JEFFREY AND NOTIFIED HIM OF SNF EVAL AND PT PASSING SWALLOW EVAL WILL PROCEED WITH SNF
--- NOTE | 2019-09-13 15:19 | Progress Note ---
DATE: SUBJECTIVE: The patient is undergoing her repeat swallowing evaluation now. She is still receiving physical therapy. PHYSICAL EXAMINATION: VITAL SIGNS: The patient is afebrile. The vital signs are stable. HEENT: Shows no facial swelling or erythema. CARDIAC: Reveals regular rate and rhythm with normal S1 and S2. LUNGS: Auscultation of lungs reveals clear breath sounds bilaterally. There is no wheezing. ABDOMEN: Soft and nontender. There is no rebound or guarding. EXTREMITIES: Shows no leg edema or calf tenderness. There is no cyanosis or clubbing. SKIN: Shows no rashes. LABORATORY DATA: Blood counts are within normal limits. Electrolytes; BUN and creatinine are within normal limits. IMPRESSION: 1. Myopathy of critical illness. 2. Resolving COVID-19 infection and viral pneumonia. 3. Diabetes. 4. Dysphagia. PLAN: 1. Await results of repeat swallowing test. 2. Continue physical therapy. 3. Insulin as needed. 4. Arrange disposition. MD MERLINE Arango/MODL /[id number]
--- NOTE | 2019-09-13 15:57 | NUR ---
FAXED CLINICALS TO [facility] ON AUTH, MAY POSSIBLY PLACE TOMORROW.
--- NOTE | 2019-09-13 16:22 | NUR ---
Urinary catheter discontinued as ordered. Catheter tip intact. Due to void at 22:22.
--- NOTE | 2019-09-13 18:15 | NUR ---
Patient voided to [facility].
--- NOTE | 2019-09-13 19:35 | NUR ---
BEDSIDE SHIFT REPORT RECEIVED FROM DAY RN. PT IS ALERT AND ORIENTED X4. RESPIRATIONS ARE EVEN AND UNLABORED . TELE ON. 20G RT SL IN RT AC. SITE HEALTHY. PT VOIDING AFTER D/C BURDEN. PT UP TO BEDSIDE COMMODE X1. ZINC TO PERINEAL AREA. CALL LIGHT WITHIN REACH. BED LOCKED ND IN LOW POSITION. PT TOLERATING PO WELL.
[2019-09-13] MEDS: INSULIN GLARGINE 100 UNITS/ML VIAL SQ SCH (21:00)
[2019-09-13] MEDS ORDERED: SODIUM CHLORIDE 0.9% 250ML 250 ML ONE (23:58)
[2019-09-14] VITALS: BP 125/71
[2019-09-14] MEDS: MEROPENEM 1GM 100 ML IV SCH ×3 (00:45→17:00)
[2019-09-14 04:10] VITALS: BP 118/76
--- NOTE | 2019-09-14 05:00 | NUR ---
IV LEAKING. IV D/C WITH CATHETER INTACT. PRESSURE DRESSING TO AREA. LAB DRAWN ORDERED. UNABLE TO RESTART IV. WILL ENDORSE TO DAY RN. PHARMACY SCHEDULER WORKING TO GET PT TO QUALIFY FOR SNF.PT COUGHING LESS.
[2019-09-14 06:51] LABS: BASOPHILS % 0.6 % (0.0-1.0); EOSINOPHILS # (AUTO) 0.3 (0.0-0.4); EOSINOPHILS % 5.7 % (0.0-6.0); HEMATOCRIT 32.7 % (34.2-44.1); HEMOGLOBIN 10.4 g/dL (12.0-16.0); LYMPHOCYTES # (AUTO) 1.5 (1.0-3.2); LYMPHOCYTES % 29.3 % (18.0-39.1); MEAN CORPUSCULAR HEMOGLOBIN 27.6 pg (28-32); MEAN CORPUSCULAR HGB CONC 31.8 g/dL (31-35); MEAN CORPUSCULAR VOLUME 86.7 fL (81-99); MONOCYTES # (AUTO) 0.8 (0.2-0.8); MONOCYTES % 14.3 % (4.4-11.3); NEUTROPHILS # (AUTO) 2.5 (2.1-6.9); NEUTROPHILS % 48.6 % (38.7-80.0); PLATELET COUNT 278 x10e3/uL (140-360); RED BLOOD COUNT 3.77 x10e6/uL (3.6-5.1); RED CELL DISTRIBUTION WIDTH 14.3 % (11.7-14.4)
[2019-09-14 07:08] LABS: ALANINE AMINOTRANSFERASE 27 IU/L (0-55); ALBUMIN 2.6 g/dL (3.5-5.0); ALBUMIN/GLOBULIN RATIO 0.6 (0.8-2.0); ALKALINE PHOSPHATASE 90 IU/L (40-150); BLOOD UREA NITROGEN 15 mg/dL (7-26); BUN/CREATININE RATIO 23 (6-25); CALCIUM 8.8 mg/dL (8.4-10.2); CARBON DIOXIDE 26 mmol/L (22-29); CHLORIDE 102 mmol/L (98-107); CREATININE, SERUM 0.66 mg/dL (0.57-1.11); EST GLOMERULAR FILTRATION RATE > 60 ML/MIN (60-); GLUCOSE 126 mg/dL (74-118); MAGNESIUM 2.2 MG/DL (1.3-2.1); SODIUM 135 mmol/L (136-145)
[2019-09-14] MEDS: INSULIN LISPRO 100 UNIT/1 ML 3ML VIAL SQ SCH ×6 (07:30→16:30)
--- NOTE | 2019-09-14 08:08 | NUR ---
SPOKE WITH REP, STILL PENDING AUTH FOR SNF
[2019-09-14] MEDS: ASPIRIN 81 MG ENTERIC COATED PO SCH (08:29)
[2019-09-14] MEDS: SIMVASTATIN 20 MG TAB PO SCH (08:29)
[2019-09-14] MEDS: ASCORBIC ACID 500 MG TAB PO SCH ×2 (08:29→17:07)
[2019-09-14] MEDS: ZINC SULFATE 220 MG CAP PO SCH (08:29)
[2019-09-14 08:54] VITALS: BP 111/75
[2019-09-14] MEDS: EYE LUBRICANT OPTH OINT 3.5GM TUBE OP SCH (09:00)
[2019-09-14] MEDS: OLMESARTAN 20 MG TAB PO SCH (09:00)
[2019-09-14 09:15] VITALS: BP 111/75
[2019-09-14] MEDS: PANTOPRAZOLE 40 MG 10ML VIAL IV SCH (09:40)
[2019-09-14 12:01] VITALS: BP 123/74
--- NOTE | 2019-09-14 15:02 | NUR ---
[facility] FACILITY DISCHARGE INFORMATION PATIENT HAS BEEN ACCEPTED TO: NAME: CHARLENE BULLOCK ADDRESS: [address] [place] [address] DR LEAL MD: DANIEL ROOM: 217 NURSE CALL REPORT TO: [phone] IMM SIGNED AND OBTAINED (if applicable): THE FOLLOWING DOCUMENTS MUST ACCOMPANY PATIENT FOR TRANSFER: COPIED CHART: PACKET
[2019-09-14 15:47] VITALS: BP 115/82
--- NOTE | 2019-09-14 16:25 | Progress Note ---
DATE: SUBJECTIVE: The patient's dysphagia improved. Her NG tube was removed. She is on a mechanical soft diet and aspiration precautions. She is still weak, but is standing and walking a few steps with physical therapy. PHYSICAL EXAMINATION: VITAL SIGNS: Blood pressure is 123/74, saturation is 98%, and the pulse is 86. HEENT: Shows no facial swelling or erythema. CARDIAC: Reveals regular rate and rhythm with normal S1, S2. LUNGS: Auscultation of lungs reveals clear breath sounds bilaterally. There is no wheezing. ABDOMEN: Soft, nontender. There is no rebound or guarding. EXTREMITIES: Shows 1+ leg edema. IMPRESSION: 1. COVID-19 and viral pneumonia. 2. Myopathy of critical illness. 3. Diabetes. 4. Moderate protein-calorie malnutrition. 5. Dysphagia. PLAN: 1. Continue to follow recommendations of speech therapy. 2. Continue physical therapy. 3. Insulin as needed. 4. [facility] to [facility]. MD MERLINE Arango/PHOENIXL /[id number]
[2019-09-14] MEDS: ACETAMINOPHEN 325 MG TAB PO PRN (17:08)
--- NOTE | 2019-09-14 17:42 | NUR ---
patient accepted to [facility]. report called to reuben BARNES. transportation arranged. waiting for their arrival at this time. patient's son Celso notified of approval and transfer to happen this afternoon.
--- NOTE | 2019-09-14 19:01 | NUR ---
patient wheeled off unit via [facility] in stable condition with all belongings.
--- NOTE | 2019-09-27 13:05 | Diagnostic Imaging Report ---
EXAM: MODIFIED BA. SWALLOW DATE: 09/13/2019 12:13 PM please of the examination was performed on 09/13/2023 requester interpretation was made on 09/27/2019. INDICATION: Pneumonia Fluoroscopy Time: 1.2 min. Reference Air Kerma (Ka, r): 7.79 mGy. FINDINGS/IMPRESSION: Modified barium swallow was performed by the speech pathologist. The radiologist was not present for the examination. Provided images demonstrate no evidence for subglottic tracheal aspiration. Please refer to speech pathology notes for further details. Signed by: Dr. Rogelio Chand MD on 09/27/2019 1:01 PM
== END 2019-09-14 19:01 | DRG 207 ==
LOC: ER 12:58 → ERHOLD 14:57 → IMCU 18:23 → ICU 08-24 20:06 → IMCU 09-03 23:17
PROVIDERS: ADMIT Internal Medicine; ATTEND Internal Medicine
PROC: 8E0ZXY6 Isolation (ICD-10-PCS; 2019-08-21)
PROC: 30233K1 Transfusion of Nonautologous Frozen Plasma into Peripheral Vein, Percutaneous Approach (ICD-10-PCS; 2019-08-22)
PROC: 02HV33Z Insertion of Infusion Device into Superior Vena Cava, Percutaneous Approach (ICD-10-PCS; 2019-08-23)
PROC: B548ZZA Ultrasonography of Superior Vena Cava, Guidance (ICD-10-PCS; 2019-08-23)
PROC: 02HV33Z Insertion of Infusion Device into Superior Vena Cava, Percutaneous Approach (ICD-10-PCS; 2019-08-25)
PROC: B548ZZA Ultrasonography of Superior Vena Cava, Guidance (ICD-10-PCS; 2019-08-25)
PROC: 3E0436Z Introduction of Nutritional Substance into Central Vein, Percutaneous Approach (ICD-10-PCS; 2019-08-26)
PROC: 5A1955Z Respiratory Ventilation, Greater than 96 Consecutive Hours (ICD-10-PCS; principal; 2019-08-27)
PROC: 0BH18EZ Insertion of Endotracheal Airway into Trachea, Via Natural or Artificial Opening Endoscopic (ICD-10-PCS; 2019-08-27)
PROC: 02HV33Z Insertion of Infusion Device into Superior Vena Cava, Percutaneous Approach (ICD-10-PCS; 2019-08-27)
PROC: B548ZZA Ultrasonography of Superior Vena Cava, Guidance (ICD-10-PCS; 2019-08-27)
DX: U07.1 COVID-19 (principal); J12.89 Other viral pneumonia; E11.10 Type 2 diabetes mellitus with ketoacidosis without coma; J15.9 Unspecified bacterial pneumonia; J96.00 Acute respiratory failure, unspecified whether with hypoxia or hypercapnia; A41.9 Sepsis, unspecified organism; R65.21 Severe sepsis with septic shock; N17.0 Acute kidney failure with tubular necrosis; B37.0 Candidal stomatitis; G72.81 Critical illness myopathy; I10 Essential (primary) hypertension; E78.5 Hyperlipidemia, unspecified; Z83.3 Family history of diabetes mellitus; Z82.3 Family history of stroke; E66.9 Obesity, unspecified; Z68.33 Body mass index [BMI] 33.0-33.9, adult; R51 Headache; F41.9 Anxiety disorder, unspecified; K12.0 Recurrent oral aphthae; Z88.5 Allergy status to narcotic agent; Z88.0 Allergy status to penicillin; D63.8 Anemia in other chronic diseases classified elsewhere; E87.5 Hyperkalemia; R13.10 Dysphagia, unspecified; R26.9 Unspecified abnormalities of gait and mobility; E78.00 Pure hypercholesterolemia, unspecified; E88.09 Other disorders of plasma-protein metabolism, not elsewhere classified; Z79.82 Long term (current) use of aspirin; Z79.84 Long term (current) use of oral hypoglycemic drugs
CPT/HCPCS: 31500; 36415; 36569; 36600; 71045; 74018; 74230; 76705; 76937; 80048; 80053; 81001; 82550; 82553; 82805; 82948; 83036; 83735; 83880; 84100; 84145; 84439; 84443; 84484; 85025; 85610; 85730; 86850; 86900; 87040; 87070; 87086; 87205; 93005; 94002; 94003; 94664; 96361; 96372; 97139; 99251; 99284; J0330; J0360; J0456; J0696; J1100; J1650; J1815; J1817; J1940; J2001; J2020; J2060; J2250; J2405; J3370; J7030; J7040; J7050; J7121; P9017; P9047; U0002

== ENCOUNTER → 2020-01-28 | Day surgery (SDC) | payer OTHER ==
[2020-01-23 09:55] LABS: BASOPHILS # (AUTO) 0.1 (0.0-0.1); BASOPHILS % 0.7 % (0.0-1.0); EOSINOPHILS # (AUTO) 0.2 (0.0-0.4); EOSINOPHILS % 2.9 % (0.0-6.0); HEMATOCRIT 37.7 % (34.2-44.1); LYMPHOCYTES # (AUTO) 2.7 (1.0-3.2); LYMPHOCYTES % 32.2 % (18.0-39.1); MEAN CORPUSCULAR HEMOGLOBIN 27.5 pg (28-32); MEAN CORPUSCULAR HGB CONC 31.8 g/dL (31-35); MEAN CORPUSCULAR VOLUME 86.3 fL (81-99); MONOCYTES # (AUTO) 0.9 (0.2-0.8); MONOCYTES % 10.3 % (4.4-11.3); NEUTROPHILS # (AUTO) 4.4 (2.1-6.9); NEUTROPHILS % 53.2 % (38.7-80.0); PLATELET COUNT 258 x10e3/uL (140-360); RED BLOOD COUNT 4.37 x10e6/uL (3.6-5.1); RED CELL DISTRIBUTION WIDTH 13.1 % (11.7-14.4)
[2020-01-23 10:29] LABS: ALBUMIN 3.8 g/dL (3.5-5.0); ANION GAP 12.9 mmol/L (8-16); CALCIUM 9.3 mg/dL (8.4-10.2); CREATININE, SERUM 1.21 mg/dL (0.57-1.11); POTASSIUM 3.9 mmol/L (3.5-5.1)
[~2020-01-28] VITALS: Ht 172.7 cm; Wt 99.8 kg
[2020-01-28] VITALS (9 sets, daily range): BP systolic 97–140; BP diastolic 55–82
[~2020-01-28] MED LIST changes: +ADVAIR 100-501 EACH; +ALPRAZOLAM 0.5 MG TAB ONE; +ASPIRIN 325 MG TAB ONE; +BENICAR20 MG PO; +BIOTIN2500 MCG PO; +BIVALRIUDIN 250 MG/VIAL VIAL IV ONE; +CALCIUM CARBON500 MG PO; +DIPHENHYDRAMINE HCL 25 MG CAP ONE; +DOCUSATE SODIU100 MG PO; +FENTANYL CITRATE/PF 100MCG/2 ML INJ ONE; +FLUTICASONE P15.8 ML; +GLIMEPIRIDE2 MG PO; +HEPARIN SOD/SOD CHLORIDE 2,000 ML ONE; +HUMALOG100 UNIT/1 SC; +HYDROCHLOROTHIA25 MG PO; +IOPAMIDOL 370 MG/ML 200 ML INFUS..BTL INJ ONE; +LANTUS 3ML100 UNITS/ SC; +LASIX20 MG PO; +LIDOCAINE HCL 2% LOCAL 20 ML VIAL ONE; +LORATADINE10 MG PO; +LOSARTAN POTAS100 MG PO; +LOVASTATIN20 MG PO; +MIDAZOLAM HCL 2 MG/2 ML VIAL ONE; +ONGLYZA5 MG PO; +PANTOPRAZOLE SO40 MG PO; +PRASUGREL 10 MG TAB ONE; +PROBIOTIC & AC1 EACH PO; +PROTONIX20 MG PO; +RAMIPRIL5 MG PO; +SODIUM CHLORIDE 0.9% 1000ML 1,000 ML ONE; +SODIUM CHLORIDE 0.9% 50ML 50 ML ONE; +VERAPAMIL HCL 2.5 MG/ML 2 ML VIAL ONE; +VICTOZA 2-0.6 MG/0.1 IM; +VITAMIN C250 MG PO; +VITAMIN D350 MCG PO
--- NOTE | 2020-01-28 11:30 | NUR ---
pt in PACU , prepped for procedure. Alert oriented and appropriate, PERRLA, respirations even and unlabored to room air. Pulses x4 extremities equal and palpable . Cap fill brisk < 3 sec. + Paulo and neurovascular function of right wrist/hand. Right wrist and bilateral groin prepped for procedure. skin intact. Benadryl 50mg and Xanax 0.5mg. Skin warm and dry integrity appears intact in general. IV 20g to right forearm and presents healthy w/o s/s of infiltration or complaint. Abdomen soft and supple. pt offered toileting, denies need to urinate or defecate. Personal affects with patient. Family at bedside . Pt verbalizes understanding of POC. Educated data solutions architect light use. bed low and locked, side rails up x2 and call light at side. Awaiting for physician arrival/procedure time. pt using provided/ personal mask for COVID-19 mitigation. -cgf
--- NOTE | 2020-01-28 15:42 | Operative Report ---
DATE OF PROCEDURE: 01/28/2020 SURGEON: Harlan Luong MD INDICATION: Coronary artery disease, angina with abnormal stress test. PROCEDURES PERFORMED: 1. Ultrasound-guided access in the right radial artery with sheath placement. 2. Left heart catheterization, selective coronary angiography. 3. Stent placement to the mid left anterior descending artery. 4. Deployment of right wrist TR band. 5. Conscious sedation 65 minutes. COMPLICATIONS: None. RECOMMENDATIONS: Dual antiplatelet therapy for at least 6 months. DESCRIPTION OF PROCEDURE: Access obtained in the right radial artery using ultrasound guidance, a 5-Kittitian sheath was placed and the coronary angiography demonstrated widely patent left main coronary artery. Left anterior descending artery mid 80% stenosis. Diagonal artery had mild disease. Circumflex and right coronary artery had mild 10% to 20% luminal irregularities. LV end-diastolic pressure was five. A decision was made to intervene on the left anterior descending artery, the patient received intravenous Angiomax and oral aspirin and prasugrel for anticoagulation. The left main was cannulated using a five-Kittitian LAR. A guiding catheter showed Runthrough wire was advanced for support. A single 2.25 x 24 mm synergy stent was deployed at 12 atmospheres. Proximal and post dilated with a 2.75 mm noncompliant balloon with excellent end result, less than 10% residual stenosis REGINALD-3 flow. No complications. Wire and guide sheath removed. TR band applied. The patient discharged home same day. Harlan Luong MD [facility]/MODL /[id number]
--- NOTE | 2020-01-28 18:15 | NUR ---
Pt meets discharge criteria. VS wnl, alert and oriented. Pt and Family Understands discharge instruction. Overall general assess w/o gross outliers. Skin warm, dry, and intact. Right radial dressing soft w/o s/s of hematoma. + neurovascular function of right hand present. IV removed and appears distal tip is intact. Radames Bradley verifying. Pt maintains mask on for COVID 19 precautions being taken by wheel chair to awaiting car. Transfers w/o gross distress with discharge paperwork and prescription in hand.-cgf
== END | disposition home or self-care (01) ==
LOC: CATH LAB 10:46
PROVIDERS: ATTEND Internal Medicine Interventional Cardiology
DX: I25.118 Atherosclerotic heart disease of native coronary artery with other forms of angina pectoris (principal); R94.39 Abnormal result of other cardiovascular function study; I87.2 Venous insufficiency (chronic) (peripheral); I73.9 Peripheral vascular disease, unspecified; R09.89 Other specified symptoms and signs involving the circulatory and respiratory systems; I10 Essential (primary) hypertension; E78.00 Pure hypercholesterolemia, unspecified; E13.69 Other specified diabetes mellitus with other specified complication; Z01.812 Encounter for preprocedural laboratory examination; Z20.828 Contact with and (suspected) exposure to other viral communicable diseases; Z79.4 Long term (current) use of insulin; Z68.33 Body mass index [BMI] 33.0-33.9, adult; Z82.49 Family history of ischemic heart disease and other diseases of the circulatory system; Z83.3 Family history of diabetes mellitus
CPT/HCPCS: 36415 ×2; 76937; 80053; 82948; 85025; 92928; 93454; C1725; C1769 ×2; C1874; C1887 ×2; J0583; J2001; J2250; J3010; J7030; Q9967; U0002; 99152

== ENCOUNTER → 2020-10-16 | Outpatient (CLI) | payer BC ==
[~2020-10-16] MED LIST changes: -ALPRAZOLAM 0.5 MG TAB ONE; -ASPIRIN 325 MG TAB ONE; -BIVALRIUDIN 250 MG/VIAL VIAL IV ONE; -DIPHENHYDRAMINE HCL 25 MG CAP ONE; -FENTANYL CITRATE/PF 100MCG/2 ML INJ ONE; -HEPARIN SOD/SOD CHLORIDE 2,000 ML ONE; -IOPAMIDOL 370 MG/ML 200 ML INFUS..BTL INJ ONE; -LIDOCAINE HCL 2% LOCAL 20 ML VIAL ONE; -MIDAZOLAM HCL 2 MG/2 ML VIAL ONE; -PRASUGREL 10 MG TAB ONE; -SODIUM CHLORIDE 0.9% 1000ML 1,000 ML ONE; -SODIUM CHLORIDE 0.9% 50ML 50 ML ONE; -VERAPAMIL HCL 2.5 MG/ML 2 ML VIAL ONE
== END ==
LOC: MAMMO 10-14 08:10
PROVIDERS: ATTEND Obstetrics & Gynecology Obstetrics
DX: Z12.31 Encounter for screening mammogram for malignant neoplasm of breast (principal)
CPT/HCPCS: 77067

== ENCOUNTER → 2021-11-25 | Outpatient (CLI) | payer OTHER | LOC: MAMMO 08:03 | PROVIDERS: ATTEND Obstetrics & Gynecology Obstetrics | DX: Z12.31 Encounter for screening mammogram for malignant neoplasm of breast (principal) | CPT/HCPCS: 77067 ==

== ENCOUNTER → 2023-01-06 | Outpatient (REF) | payer MEDICARE ==
[~2023-01-06] MED LIST changes: +AMLODIPINE BESYL5 MG PO; +FISH OIL 1,2001 EACH; +MAGNESIUM PO; +METFORMIN HCL500 MG PO; +OZEMPIC0.25 MG/0. SC; +VITAMIN B-121000 MCG PO; +VITAMIN B6100 MG/2.5 PO; +ZINC PO
== END ==
LOC: MAMMO 08:52
PROVIDERS: ATTEND Family Medicine
DX: R92.8 Other abnormal and inconclusive findings on diagnostic imaging of breast (principal)

== ENCOUNTER → 2024-01-09 | Outpatient (REF) | payer MEDICARE | LOC: MAMMO 10:33 | PROVIDERS: ATTEND Family Medicine | DX: Z12.31 Encounter for screening mammogram for malignant neoplasm of breast (principal) | CPT/HCPCS: 77067 ==

== ENCOUNTER → 2025-01-10 | Outpatient (REF) | payer MEDICARE | LOC: MAMMO 07:58 | PROVIDERS: ATTEND Family Medicine | DX: Z12.31 Encounter for screening mammogram for malignant neoplasm of breast (principal) | CPT/HCPCS: 77067 ==